=== PATIENT | male | born 1975 | race African-American/Black ===

== ENCOUNTER → 2020-10-21 | Outpatient (CLI) | payer BC ==
[~2020-10-21] MED LIST: LIDOCAINE VISC 2% SOLN 15 ML UDC ONE
[2020-10-21 16:45] LABS: BASOPHILS % 0.4 % (0.0-1.0); EOSINOPHILS # (AUTO) 0.2 (0.0-0.4); EOSINOPHILS % 2.6 % (0.0-6.0); LYMPHOCYTES # (AUTO) 2.2 (1.0-3.2); LYMPHOCYTES % 30.8 % (18.0-39.1); MEAN CORPUSCULAR HEMOGLOBIN 24.3 pg (28-32); MEAN CORPUSCULAR HGB CONC 30.3 g/dL (31-35); MEAN CORPUSCULAR VOLUME 80.1 fL (81-99); MONOCYTES # (AUTO) 0.6 (0.2-0.8); MONOCYTES % 7.9 % (4.4-11.3); NEUTROPHILS % 57.9 % (38.7-80.0); PLATELET COUNT 463 x10e3/uL (140-360); RED BLOOD COUNT 4.12 x10e6/uL (4.3-5.7); RED CELL DISTRIBUTION WIDTH 15.2 % (11.7-14.4)
[2020-10-21 17:04] LABS: ALBUMIN 3.5 g/dL (3.5-5.0); ALBUMIN/GLOBULIN RATIO 0.6 (0.8-2.0); ANION GAP 14.3 mmol/L (8-16); CALCIUM 9.6 mg/dL (8.4-10.2); CREATININE, SERUM 1.5 mg/dL (0.72-1.25); POTASSIUM 4.3 mmol/L (3.5-5.1)
== END | disposition home or self-care (01) ==
LOC: WCC 14:11
PROVIDERS: ATTEND Podiatrist Foot & Ankle Surgery
DX: E11.621 Type 2 diabetes mellitus with foot ulcer (principal); L97.516 Non-pressure chronic ulcer of other part of right foot with bone involvement without evidence of necrosis; M86.171 Other acute osteomyelitis, right ankle and foot; E11.628 Type 2 diabetes mellitus with other skin complications; G99.0 Autonomic neuropathy in diseases classified elsewhere; I10 Essential (primary) hypertension
CPT/HCPCS: 36415; 80053; 82948; 83036; 84134; 85025; 85651

== ENCOUNTER → 2020-10-24 | Outpatient (CLI) | payer BC ==
[~2020-10-24] MED LIST changes: +TRYPSIN/BALSAM PERU/CASTOR OIL ONE
== END ==
LOC: WCC 10:17
PROVIDERS: ATTEND Internal Medicine Infectious Disease
DX: E11.621 Type 2 diabetes mellitus with foot ulcer (principal); E11.628 Type 2 diabetes mellitus with other skin complications; M86.171 Other acute osteomyelitis, right ankle and foot; L97.516 Non-pressure chronic ulcer of other part of right foot with bone involvement without evidence of necrosis; G99.0 Autonomic neuropathy in diseases classified elsewhere; I10 Essential (primary) hypertension; Z01.810 Encounter for preprocedural cardiovascular examination

== ENCOUNTER → 2020-10-28 | Outpatient (CLI) | payer BC | LOC: WCC 13:56 | PROVIDERS: ATTEND Podiatrist Foot & Ankle Surgery | DX: E11.621 Type 2 diabetes mellitus with foot ulcer (principal); E11.628 Type 2 diabetes mellitus with other skin complications; M86.171 Other acute osteomyelitis, right ankle and foot; L97.516 Non-pressure chronic ulcer of other part of right foot with bone involvement without evidence of necrosis; G99.0 Autonomic neuropathy in diseases classified elsewhere; I10 Essential (primary) hypertension; Z01.810 Encounter for preprocedural cardiovascular examination ==

== ENCOUNTER → 2020-11-03 | Outpatient (CLI) | payer BC | LOC: DX 09:18 | PROVIDERS: ATTEND Internal Medicine Infectious Disease | DX: Z01.810 Encounter for preprocedural cardiovascular examination (principal); E11.621 Type 2 diabetes mellitus with foot ulcer; L97.516 Non-pressure chronic ulcer of other part of right foot with bone involvement without evidence of necrosis; M86.171 Other acute osteomyelitis, right ankle and foot | CPT/HCPCS: 36569; 71045 ==

== ENCOUNTER → 2020-11-04 | Outpatient (CLI) | payer BC | LOC: RAD 14:29 | PROVIDERS: ATTEND Internal Medicine Infectious Disease | DX: Z01.810 Encounter for preprocedural cardiovascular examination (principal); E11.621 Type 2 diabetes mellitus with foot ulcer; L97.516 Non-pressure chronic ulcer of other part of right foot with bone involvement without evidence of necrosis; M86.171 Other acute osteomyelitis, right ankle and foot | CPT/HCPCS: 71046; 93005; 93306 ==

== ENCOUNTER → 2020-11-04 | Outpatient (CLI) | payer BC | LOC: WCC 13:32 | PROVIDERS: ATTEND Podiatrist Foot & Ankle Surgery | DX: E11.621 Type 2 diabetes mellitus with foot ulcer (principal); E11.628 Type 2 diabetes mellitus with other skin complications; M86.171 Other acute osteomyelitis, right ankle and foot; L97.516 Non-pressure chronic ulcer of other part of right foot with bone involvement without evidence of necrosis; G99.0 Autonomic neuropathy in diseases classified elsewhere; I10 Essential (primary) hypertension; Z01.810 Encounter for preprocedural cardiovascular examination ==

== ENCOUNTER → 2020-11-07 | Outpatient (CLI) | payer BC | LOC: WCC 08:13 | PROVIDERS: ATTEND Internal Medicine Infectious Disease | DX: E11.621 Type 2 diabetes mellitus with foot ulcer (principal); E11.628 Type 2 diabetes mellitus with other skin complications; M86.171 Other acute osteomyelitis, right ankle and foot; L97.516 Non-pressure chronic ulcer of other part of right foot with bone involvement without evidence of necrosis; I10 Essential (primary) hypertension; G99.0 Autonomic neuropathy in diseases classified elsewhere; Z01.810 Encounter for preprocedural cardiovascular examination | CPT/HCPCS: 36415; 82948; 93005 ==

== ENCOUNTER → 2020-11-11 | Outpatient (CLI) | payer BC | LOC: WCC 15:08 | PROVIDERS: ATTEND Internal Medicine Infectious Disease | DX: E11.621 Type 2 diabetes mellitus with foot ulcer (principal); E11.628 Type 2 diabetes mellitus with other skin complications; M86.171 Other acute osteomyelitis, right ankle and foot; L97.516 Non-pressure chronic ulcer of other part of right foot with bone involvement without evidence of necrosis; I10 Essential (primary) hypertension; G99.0 Autonomic neuropathy in diseases classified elsewhere; Z01.810 Encounter for preprocedural cardiovascular examination | CPT/HCPCS: 36415; 82948 ==

== ENCOUNTER 2020-11-15 13:10 | Emergency (ER) | payer BC ==
[~2020-11-15] VITALS: Ht 188 cm; Wt 140.6 kg
== END 2020-11-15 14:31 | disposition home or self-care (01) ==
LOC: ER 13:16
DX: Z48.01 Encounter for change or removal of surgical wound dressing (principal); I10 Essential (primary) hypertension; E11.9 Type 2 diabetes mellitus without complications; E78.5 Hyperlipidemia, unspecified; K21.9 Gastro-esophageal reflux disease without esophagitis
CPT/HCPCS: 99283

== ENCOUNTER → 2020-11-17 | Outpatient (CLI) | payer BC | LOC: WCC 14:23 | PROVIDERS: ATTEND Internal Medicine Infectious Disease | DX: E11.621 Type 2 diabetes mellitus with foot ulcer (principal); E11.628 Type 2 diabetes mellitus with other skin complications; M86.171 Other acute osteomyelitis, right ankle and foot; L97.516 Non-pressure chronic ulcer of other part of right foot with bone involvement without evidence of necrosis; I10 Essential (primary) hypertension; G99.0 Autonomic neuropathy in diseases classified elsewhere; Z01.810 Encounter for preprocedural cardiovascular examination ==

== ENCOUNTER → 2020-11-18 | Outpatient (CLI) | payer BC ==
[~2020-11-18] MED LIST changes: -LIDOCAINE VISC 2% SOLN 15 ML UDC ONE
== END ==
LOC: WCC 13:47
PROVIDERS: ATTEND Podiatrist Foot & Ankle Surgery
DX: E11.621 Type 2 diabetes mellitus with foot ulcer (principal); E11.628 Type 2 diabetes mellitus with other skin complications; M86.171 Other acute osteomyelitis, right ankle and foot; L97.516 Non-pressure chronic ulcer of other part of right foot with bone involvement without evidence of necrosis; I10 Essential (primary) hypertension; G99.0 Autonomic neuropathy in diseases classified elsewhere; Z01.810 Encounter for preprocedural cardiovascular examination

== ENCOUNTER → 2020-11-24 | Outpatient (CLI) | payer BC | LOC: WCC 12:36 | PROVIDERS: ATTEND Internal Medicine Infectious Disease | DX: E11.621 Type 2 diabetes mellitus with foot ulcer (principal); E11.628 Type 2 diabetes mellitus with other skin complications; L97.516 Non-pressure chronic ulcer of other part of right foot with bone involvement without evidence of necrosis; M86.671 Other chronic osteomyelitis, right ankle and foot; G99.0 Autonomic neuropathy in diseases classified elsewhere; I10 Essential (primary) hypertension; Z01.810 Encounter for preprocedural cardiovascular examination ==

== ENCOUNTER → 2020-12-01 | Outpatient (CLI) | payer BC ==
[~2020-12-01] MED LIST changes: +ALLOPURINOL300 MG PO; +AMLODIPINE-BEN1 EAC5 PO; +ATORVASTATIN CA20 MG PO; +CEFTRIAXONE1 GM IV; +FLOMAX0.4 MG PO; +HUMALOG SQ; +HYDROCHLOROTH12.5 MG PO; +JANUVIA100 MG PO; +LANTUS SQ; +METFORMIN HCL500 MG PO; +NEURONTIN300 MG PO; -TRYPSIN/BALSAM PERU/CASTOR OIL ONE
== END ==
LOC: WCC 12:15
PROVIDERS: ATTEND Internal Medicine Infectious Disease
DX: E11.621 Type 2 diabetes mellitus with foot ulcer (principal); E11.628 Type 2 diabetes mellitus with other skin complications; L97.516 Non-pressure chronic ulcer of other part of right foot with bone involvement without evidence of necrosis; M86.671 Other chronic osteomyelitis, right ankle and foot; G99.0 Autonomic neuropathy in diseases classified elsewhere; I10 Essential (primary) hypertension; Z01.810 Encounter for preprocedural cardiovascular examination

== ENCOUNTER → 2020-12-02 | Outpatient (CLI) | payer BC | LOC: WCC 13:16 | PROVIDERS: ATTEND Internal Medicine Infectious Disease | DX: E11.621 Type 2 diabetes mellitus with foot ulcer (principal); E11.628 Type 2 diabetes mellitus with other skin complications; M86.671 Other chronic osteomyelitis, right ankle and foot; L97.516 Non-pressure chronic ulcer of other part of right foot with bone involvement without evidence of necrosis; G99.0 Autonomic neuropathy in diseases classified elsewhere; I10 Essential (primary) hypertension; Z01.810 Encounter for preprocedural cardiovascular examination ==

== ENCOUNTER → 2020-12-08 | Outpatient (CLI) | payer BC ==
[~2020-12-08] MED LIST changes: +BUPIVACAINE 0.25% 30ML SDV ONE; +NEOSTIGMINE 1 MG/ML 10ML VIAL ONE; +Vancomycin IV 0 MG ONE
== END ==
LOC: WCC 13:33
PROVIDERS: ATTEND Internal Medicine Infectious Disease
DX: E11.621 Type 2 diabetes mellitus with foot ulcer (principal); E11.628 Type 2 diabetes mellitus with other skin complications; L97.516 Non-pressure chronic ulcer of other part of right foot with bone involvement without evidence of necrosis; M86.671 Other chronic osteomyelitis, right ankle and foot; G99.0 Autonomic neuropathy in diseases classified elsewhere; I10 Essential (primary) hypertension; Z01.810 Encounter for preprocedural cardiovascular examination
CPT/HCPCS: J2710; J3370

== ENCOUNTER → 2020-12-09 | Day surgery (SDC) | payer BC ==
[2020-12-08 12:28] LABS: ANION GAP 14.5 mmol/L (8-16); CALCIUM 9.8 mg/dL (8.4-10.2); CREATININE, SERUM 1.65 mg/dL (0.72-1.25); POTASSIUM 5.5 mmol/L (3.5-5.1)
[~2020-12-09] MED LIST changes: -BUPIVACAINE 0.25% 30ML SDV ONE; +DEXAMETHASONE SOD PHOS INJ 4 MG/ML SDV ONE; +EPHEDRINE SULFATE INJ 50 MG/ML VIAL ONE; +LIDOCAINE HCL 2% LOCAL INJ 5 ML SDV VIAL INJ ONE; -NEOSTIGMINE 1 MG/ML 10ML VIAL ONE; +ONDANSETRON HCL INJ 2MG/ML 2ML 2 MG/ML VIAL ONE; +POVIDONE IODINE 0.05% 0.05 % ML PO ONE; +PROPOFOL IV EMULSION 10 MG/ML 20 ML VIAL ONE; +SEVOFLURANE INHAL SOLN 250 ML PEN BTL ONE; -Vancomycin IV 0 MG ONE
[2020-12-09 10:35] VITALS: BP 148/93
== END | disposition home or self-care (01) ==
LOC: OR 06:54
PROVIDERS: ATTEND Podiatrist Foot & Ankle Surgery
DX: M86.9 Osteomyelitis, unspecified (principal); E11.621 Type 2 diabetes mellitus with foot ulcer; E11.40 Type 2 diabetes mellitus with diabetic neuropathy, unspecified; E11.51 Type 2 diabetes mellitus with diabetic peripheral angiopathy without gangrene; L97.416 Non-pressure chronic ulcer of right heel and midfoot with bone involvement without evidence of necrosis; M10.9 Gout, unspecified; I10 Essential (primary) hypertension; Z01.812 Encounter for preprocedural laboratory examination; Z20.822 Contact with and (suspected) exposure to COVID-19; Z79.4 Long term (current) use of insulin
CPT/HCPCS: 15004; 15275; 36415 ×2; 80048; 82948; 84132; 87071; 87075; 87186; 87205; J1100; J2001; J2405; J2704; Q4100; U0002

== ENCOUNTER → 2020-12-16 | Outpatient (CLI) | payer BC ==
[~2020-12-16] MED LIST changes: -DEXAMETHASONE SOD PHOS INJ 4 MG/ML SDV ONE; -EPHEDRINE SULFATE INJ 50 MG/ML VIAL ONE; -LIDOCAINE HCL 2% LOCAL INJ 5 ML SDV VIAL INJ ONE; -ONDANSETRON HCL INJ 2MG/ML 2ML 2 MG/ML VIAL ONE; -POVIDONE IODINE 0.05% 0.05 % ML PO ONE; -PROPOFOL IV EMULSION 10 MG/ML 20 ML VIAL ONE; -SEVOFLURANE INHAL SOLN 250 ML PEN BTL ONE
== END ==
LOC: WCC 15:58
PROVIDERS: ATTEND Internal Medicine Infectious Disease
DX: E11.621 Type 2 diabetes mellitus with foot ulcer (principal); E11.628 Type 2 diabetes mellitus with other skin complications; M86.671 Other chronic osteomyelitis, right ankle and foot; L97.516 Non-pressure chronic ulcer of other part of right foot with bone involvement without evidence of necrosis; G99.0 Autonomic neuropathy in diseases classified elsewhere; I10 Essential (primary) hypertension; Z01.810 Encounter for preprocedural cardiovascular examination

== ENCOUNTER 2020-12-20 09:33 | Inpatient (IN) | payer BC ==
[~2020-12-20] VITALS: Ht 188 cm; Wt 141.5 kg
[2020-12-20] MEDS ORDERED: SODIUM CHLORIDE 0.9% 1000ML 1,000 ML IV STA (10:00)
[2020-12-20 10:26] LABS: BASOPHILS % 0.3 % (0.0-1.0); EOSINOPHILS % 0.3 % (0.0-6.0); HEMATOCRIT 28.7 % (38.2-49.6); HEMOGLOBIN 8.6 g/dL (14.0-18.0); LYMPHOCYTES # (AUTO) 1.3 (1.0-3.2); LYMPHOCYTES % 9.5 % (18.0-39.1); MEAN CORPUSCULAR HEMOGLOBIN 24.3 pg (28-32); MEAN CORPUSCULAR VOLUME 81.1 fL (81-99); MONOCYTES # (AUTO) 0.7 (0.2-0.8); MONOCYTES % 4.9 % (4.4-11.3); NEUTROPHILS # (AUTO) 11.8 (2.1-6.9); NEUTROPHILS % 84.4 % (38.7-80.0); PLATELET COUNT 495 x10e3/uL (140-360); RED BLOOD COUNT 3.54 x10e6/uL (4.3-5.7); RED CELL DISTRIBUTION WIDTH 15.9 % (11.7-14.4)
[2020-12-20 10:31] LABS: INR 1.07; PARTIAL THROMBOPLASTIN TIME 32.1 seconds (23.8-35.5); PROTHROMBIN TIME 14.1 seconds (11.9-14.5)
[2020-12-20 10:43] LABS: ALBUMIN 3.1 g/dL (3.5-5.0); ALBUMIN/GLOBULIN RATIO 0.5 (0.8-2.0); ANION GAP 22.1 mmol/L (8-16); CALCIUM 9.5 mg/dL (8.4-10.2); CREATININE, SERUM 3.05 mg/dL (0.72-1.25); POTASSIUM 5.1 mmol/L (3.5-5.1)
[2020-12-20] MEDS ORDERED: MEROPENEM 1 GM in SODIUM CHLORIDE 0.9% 100 ML 100 ML IV STA (10:48)
[2020-12-20 10:56] LABS: CREATINE KINASE 74 IU/L (30-200); MAGNESIUM 1.6 MG/DL (1.3-2.1)
[2020-12-20] MEDS ORDERED: MEROPENEM 1 GM in SODIUM CHLORIDE 0.9% 100 ML IV STA (11:00)
[2020-12-20] MEDS ORDERED: SODIUM CHLORIDE 0.9% 1000ML 1,000 ML IV ONE (11:00)
[2020-12-20] MEDS ORDERED: LINEZOLID 600 MG/D5W 300ML 300 ML IV ONE (11:30)
[2020-12-20 11:37] LABS: CLARITY,URINE SL CLOUDY (CLEAR); COLOR,URINE YELLOW (YELLOW); KETONES,URINE TRACE (NEGATIVE); LEUKOCYTE ESTERASE ,URINE LARGE (NEGATIVE); NITRITE,URINE NEGATIVE (NEGATIVE); PROTEIN,URINE DIPSTICK >=300 (NEGATIVE); URINE UROBILINOGEN 0.2 mg/dL (0.2 - 1)
[2020-12-20 11:47] LABS: WBC,URINE (MAN) 21-50 /HPF (0-5)
[2020-12-20 11:48] LABS: BACTERIA,URINE RARE /HPF; EPITHELIAL CELLS,URINE FEW /LPF; RBC,URINE 21-50 /HPF (0-5)
[2020-12-20] MEDS ORDERED: ONDANSETRON HCL INJ 2MG/ML 2ML 2 MG/ML VIAL IV PRN (14:15)
[2020-12-20] MEDS: FAMOTIDINE 20 MG/2 ML VIAL IV SCH (14:21)
[2020-12-20] MEDS: SODIUM CHLORIDE 0.9% 1000ML 1,000 ML IV SCH (14:21)
[2020-12-20 15:58] VITALS: BP 157/93
[2020-12-20 20:00] VITALS: BP 143/81
[2020-12-20 22:45] LABS: CREATINE KINASE MB 2.1 ng/mL (0-5.0)
[2020-12-20 23:26] VITALS: BP 143/81
[2020-12-21] VITALS (8 sets, daily range): BP systolic 115–166; BP diastolic 71–97
[2020-12-21] MEDS: SODIUM CHLORIDE 0.9% 1000ML 1,000 ML IV SCH ×3 (00:41→21:42)
[2020-12-21 01:17] LABS: CREATINE KINASE MB 2.1 ng/mL (0-5.0)
[2020-12-21] MEDS: FAMOTIDINE 20 MG/2 ML VIAL IV SCH (02:03)
[2020-12-21 08:36] LABS: HEMATOCRIT 28.5 % (38.2-49.6); HEMOGLOBIN 8.3 g/dL (14.0-18.0); RED BLOOD COUNT 3.51 x10e6/uL (4.3-5.7)
[2020-12-21 08:37] LABS: BASOPHILS % 0.6 % (0.0-1.0); EOSINOPHILS # (AUTO) 0.1 (0.0-0.4); EOSINOPHILS % 1.3 % (0.0-6.0); LYMPHOCYTES # (AUTO) 0.9 (1.0-3.2); LYMPHOCYTES % 17.5 % (18.0-39.1); MEAN CORPUSCULAR HEMOGLOBIN 23.6 pg (28-32); MEAN CORPUSCULAR HGB CONC 29.1 g/dL (31-35); MEAN CORPUSCULAR VOLUME 81.2 fL (81-99); MONOCYTES # (AUTO) 0.9 (0.2-0.8); MONOCYTES % 16.7 % (4.4-11.3); NEUTROPHILS # (AUTO) 3.4 (2.1-6.9); NEUTROPHILS % 63.7 % (38.7-80.0); PLATELET COUNT 455 x10e3/uL (140-360); RED CELL DISTRIBUTION WIDTH 15.8 % (11.7-14.4)
[2020-12-21 09:03] LABS: ALBUMIN 2.8 g/dL (3.5-5.0); ALBUMIN/GLOBULIN RATIO 0.5 (0.8-2.0); ANION GAP 14.2 mmol/L (8-16); CALCIUM 9.2 mg/dL (8.4-10.2); CHOL/HDL RATIO 4.2 (3.9-4.7); CREATININE, SERUM 1.67 mg/dL (0.72-1.25); POTASSIUM 5.2 mmol/L (3.5-5.1)
[2020-12-21] MEDS ORDERED: DEXTROSE 50% SYRINGE 50 ML IV PRN (09:15)
[2020-12-21] MEDS ORDERED: HYDRALAZINE HCL 25 MG TAB PO PRN (09:15)
[2020-12-21] MEDS ORDERED: NIFEDIPINE CR 30 MG TAB PO ONE (10:00)
[2020-12-21] MEDS: INSULIN LISPRO 100 UNIT/1 ML 3ML VIAL SQ SCH ×5 (10:24→21:43)
[2020-12-21] MEDS ORDERED: SOD POLYSTYRENE SULFONATE SUSP 15 GM/60 ML BTL PO ONE ×2 (11:30→14:00)
[2020-12-21] MEDS: GABAPENTIN 300 MG CAP PO SCH (17:00)
[2020-12-21] MEDS: TAMSULOSIN HCL 0.4 MG CAP PO SCH (17:00)
[2020-12-21] MEDS: ATORVASTATIN 20 MG TAB PO SCH (21:40)
[2020-12-21] MEDS: INSULIN GLARGINE 100 UNITS/ML VIAL SQ SCH (21:43)
[2020-12-22] VITALS (8 sets, daily range): BP systolic 120–154; BP diastolic 67–95
[2020-12-22] MEDS: SODIUM CHLORIDE 0.9% 1000ML 1,000 ML IV SCH ×3 (05:44→20:54)
[2020-12-22 05:47] LABS: BASOPHILS % 0.5 % (0.0-1.0); EOSINOPHILS # (AUTO) 0.1 (0.0-0.4); EOSINOPHILS % 1.7 % (0.0-6.0); HEMATOCRIT 28.6 % (38.2-49.6); HEMOGLOBIN 8.4 g/dL (14.0-18.0); LYMPHOCYTES % 24.2 % (18.0-39.1); MEAN CORPUSCULAR HEMOGLOBIN 23.7 pg (28-32); MEAN CORPUSCULAR HGB CONC 29.4 g/dL (31-35); MEAN CORPUSCULAR VOLUME 80.8 fL (81-99); MONOCYTES # (AUTO) 0.8 (0.2-0.8); MONOCYTES % 20.3 % (4.4-11.3); NEUTROPHILS # (AUTO) 2.2 (2.1-6.9); NEUTROPHILS % 53.1 % (38.7-80.0); PLATELET COUNT 454 x10e3/uL (140-360); RED BLOOD COUNT 3.54 x10e6/uL (4.3-5.7); RED CELL DISTRIBUTION WIDTH 15.6 % (11.7-14.4)
[2020-12-22] MEDS ORDERED: NIFEDIPINE CR 30 MG TAB PO SCH (06:00)
[2020-12-22 06:02] LABS: ALBUMIN 2.8 g/dL (3.5-5.0); ALBUMIN/GLOBULIN RATIO 0.5 (0.8-2.0); ANION GAP 12.7 mmol/L (8-16); CALCIUM 9.1 mg/dL (8.4-10.2); CREATININE, SERUM 1.3 mg/dL (0.72-1.25); PHOSPHORUS 3.6 MG/DL (2.3-4.7); POTASSIUM 4.7 mmol/L (3.5-5.1)
[2020-12-22 06:22] LABS: FERRITIN 446.64 ng/mL (21.81-274.66)
[2020-12-22 06:46] LABS: CREATININE,URINE RANDOM 79.8 mg/dL (63-166); TOTAL PROTEIN, URINE 149.1 mg/dL (1-14)
[2020-12-22 08:00] LABS: THYROID STIMULATING HORMONE 1.35 uIU/mL (0.350-4.940)
[2020-12-22] MEDS: GABAPENTIN 300 MG CAP PO SCH ×2 (10:28→16:59)
[2020-12-22] MEDS: ALLOPURINOL 300 MG TAB PO SCH (10:29)
[2020-12-22] MEDS: NIFEDIPINE CR 30 MG TAB PO SCH (10:29)
[2020-12-22] MEDS: INSULIN LISPRO 100 UNIT/1 ML 3ML VIAL SQ SCH ×7 (10:30→21:39)
[2020-12-22] MEDS ORDERED: LEVOFLOXACIN 500 MG TAB PO SCH (14:00)
[2020-12-22] MEDS: AMOXICILLIN/CLAVULANATE K 500 MG TAB PO SCH (16:59)
[2020-12-22] MEDS: TAMSULOSIN HCL 0.4 MG CAP PO SCH (16:59)
[2020-12-22] MEDS ORDERED: MELATONIN 3 MG TAB PO PRN (21:15)
[2020-12-22] MEDS: ATORVASTATIN 20 MG TAB PO SCH (21:39)
[2020-12-22] MEDS: INSULIN GLARGINE 100 UNITS/ML VIAL SQ SCH (21:39)
[2020-12-23 01:31] VITALS: BP 113/66
[2020-12-23 05:50] VITALS: BP 120/66
[2020-12-23 08:11] LABS: ANION GAP 14.5 mmol/L (8-16); CALCIUM 9.3 mg/dL (8.4-10.2); CREATININE, SERUM 1.36 mg/dL (0.72-1.25); POTASSIUM 4.5 mmol/L (3.5-5.1)
[2020-12-23 08:32] VITALS: BP 147/78
[2020-12-23 08:35] VITALS: BP 120/66
[2020-12-23] MEDS: ALLOPURINOL 300 MG TAB PO SCH (09:46)
[2020-12-23] MEDS: NIFEDIPINE CR 30 MG TAB PO SCH (09:46)
[2020-12-23] MEDS: GABAPENTIN 300 MG CAP PO SCH (09:46)
[2020-12-23] MEDS: AMOXICILLIN/CLAVULANATE K 500 MG TAB PO SCH (09:46)
[2020-12-23] MEDS: INSULIN LISPRO 100 UNIT/1 ML 3ML VIAL SQ SCH ×2 (09:47)
[2020-12-23 10:28] LABS: BASOPHILS % 0.2 % (0.0-1.0); EOSINOPHILS % 0.2 % (0.0-6.0); HEMATOCRIT 29.2 % (38.2-49.6); HEMOGLOBIN 8.7 g/dL (14.0-18.0); LYMPHOCYTES # (AUTO) 1.1 (1.0-3.2); LYMPHOCYTES % 21.9 % (18.0-39.1); MEAN CORPUSCULAR HEMOGLOBIN 24.1 pg (28-32); MEAN CORPUSCULAR HGB CONC 29.8 g/dL (31-35); MEAN CORPUSCULAR VOLUME 80.9 fL (81-99); MONOCYTES # (AUTO) 0.8 (0.2-0.8); MONOCYTES % 14.6 % (4.4-11.3); NEUTROPHILS # (AUTO) 3.3 (2.1-6.9); NEUTROPHILS % 62.9 % (38.7-80.0); PLATELET COUNT 431 x10e3/uL (140-360); RED BLOOD COUNT 3.61 x10e6/uL (4.3-5.7); RED CELL DISTRIBUTION WIDTH 15.8 % (11.7-14.4)
== END 2020-12-23 11:36 | disposition home or self-care (01) | DRG 871 ==
LOC: ER 09:54 → ERHOLD 14:03 → MED/SURG2 15:20
PROVIDERS: ADMIT Internal Medicine; ATTEND Internal Medicine
DX: A41.9 Sepsis, unspecified organism (principal); N17.0 Acute kidney failure with tubular necrosis; E87.2 Acidosis; L97.518 Non-pressure chronic ulcer of other part of right foot with other specified severity; M86.8X7 Other osteomyelitis, ankle and foot; N39.0 Urinary tract infection, site not specified; R65.20 Severe sepsis without septic shock; E11.621 Type 2 diabetes mellitus with foot ulcer; Z79.899 Other long term (current) drug therapy; I12.9 Hypertensive chronic kidney disease with stage 1 through stage 4 chronic kidney disease, or unspecified chronic kidney disease; N18.30 Chronic kidney disease, stage 3 unspecified; E11.40 Type 2 diabetes mellitus with diabetic neuropathy, unspecified; E11.65 Type 2 diabetes mellitus with hyperglycemia; E11.69 Type 2 diabetes mellitus with other specified complication; M10.9 Gout, unspecified; D63.1 Anemia in chronic kidney disease; E87.5 Hyperkalemia
CPT/HCPCS: 36415; 71045; 76770; 80048; 80053; 80061; 81001; 82550; 82553; 82570; 82607; 82728; 82746; 82948; 83036; 83540; 83605; 83735; 84100; 84156; 84443; 84466; 84484; 85025; 85610; 85730; 87040; 87086; 93005; 96372; 99284; J1815; J2020; J2185; J7030; J7050; U0002

== ENCOUNTER → 2021-01-27 | Outpatient (CLI) | payer BC ==
[~2021-01-27] MED LIST changes: +TRYPSIN/BALSAM PERU/CASTOR OIL ONE
== END ==
LOC: WCC 12:13
PROVIDERS: ATTEND Podiatrist Foot & Ankle Surgery
DX: E11.621 Type 2 diabetes mellitus with foot ulcer (principal); E11.628 Type 2 diabetes mellitus with other skin complications; M86.671 Other chronic osteomyelitis, right ankle and foot; L97.516 Non-pressure chronic ulcer of other part of right foot with bone involvement without evidence of necrosis; I10 Essential (primary) hypertension; G99.0 Autonomic neuropathy in diseases classified elsewhere; Z01.810 Encounter for preprocedural cardiovascular examination; Z01.811 Encounter for preprocedural respiratory examination

== ENCOUNTER → 2021-01-28 | Outpatient (CLI) | payer BC ==
[~2021-01-28] MED LIST changes: -TRYPSIN/BALSAM PERU/CASTOR OIL ONE
== END ==
LOC: RAD 10:12
PROVIDERS: ATTEND Podiatrist Foot & Ankle Surgery
DX: Z01.810 Encounter for preprocedural cardiovascular examination (principal); Z01.811 Encounter for preprocedural respiratory examination
CPT/HCPCS: 71046; 93005

== ENCOUNTER → 2021-02-02 | Outpatient (CLI) | payer BC | LOC: WCC 10:48 | PROVIDERS: ATTEND Internal Medicine Infectious Disease | DX: E11.621 Type 2 diabetes mellitus with foot ulcer (principal); E11.628 Type 2 diabetes mellitus with other skin complications; M86.671 Other chronic osteomyelitis, right ankle and foot; L97.516 Non-pressure chronic ulcer of other part of right foot with bone involvement without evidence of necrosis; I10 Essential (primary) hypertension; G99.0 Autonomic neuropathy in diseases classified elsewhere; Z01.810 Encounter for preprocedural cardiovascular examination; Z01.811 Encounter for preprocedural respiratory examination ==

== ENCOUNTER → 2021-02-03 | Outpatient (CLI) | payer BC | LOC: WCC 14:41 | PROVIDERS: ATTEND Podiatrist Foot & Ankle Surgery | DX: E11.621 Type 2 diabetes mellitus with foot ulcer (principal); E11.628 Type 2 diabetes mellitus with other skin complications; M86.671 Other chronic osteomyelitis, right ankle and foot; L97.516 Non-pressure chronic ulcer of other part of right foot with bone involvement without evidence of necrosis; I10 Essential (primary) hypertension; G99.0 Autonomic neuropathy in diseases classified elsewhere; Z01.810 Encounter for preprocedural cardiovascular examination; Z01.811 Encounter for preprocedural respiratory examination | CPT/HCPCS: 87071; 87075; 87205; 99212; G0277 ==

== ENCOUNTER → 2021-02-04 | Outpatient (CLI) | payer BC | LOC: WCC 10:21 | PROVIDERS: ATTEND Podiatrist Foot & Ankle Surgery | DX: E11.621 Type 2 diabetes mellitus with foot ulcer (principal); E11.628 Type 2 diabetes mellitus with other skin complications; M86.671 Other chronic osteomyelitis, right ankle and foot; L97.516 Non-pressure chronic ulcer of other part of right foot with bone involvement without evidence of necrosis; G99.0 Autonomic neuropathy in diseases classified elsewhere; I10 Essential (primary) hypertension; Z01.810 Encounter for preprocedural cardiovascular examination; Z01.811 Encounter for preprocedural respiratory examination | CPT/HCPCS: 36415; 82947 ==

== ENCOUNTER → 2021-02-05 | Outpatient (CLI) | payer BC | LOC: WCC 11:39 | PROVIDERS: ATTEND Podiatrist Foot & Ankle Surgery | DX: E11.621 Type 2 diabetes mellitus with foot ulcer (principal); E11.628 Type 2 diabetes mellitus with other skin complications; M86.671 Other chronic osteomyelitis, right ankle and foot; L97.516 Non-pressure chronic ulcer of other part of right foot with bone involvement without evidence of necrosis; I10 Essential (primary) hypertension; G99.0 Autonomic neuropathy in diseases classified elsewhere; Z01.810 Encounter for preprocedural cardiovascular examination; Z01.811 Encounter for preprocedural respiratory examination | CPT/HCPCS: 99213; G0277 ==

== ENCOUNTER → 2021-02-09 | Outpatient (CLI) | payer BC ==
[~2021-02-09] MED LIST changes: +MINERAL OIL/PETROLAT/GLYCERI 6OZ BTL ONE; +TRYPSIN/BALSAM PERU/CASTOR OIL ONE
== END ==
LOC: WCC 08:43
PROVIDERS: ATTEND Podiatrist Foot & Ankle Surgery
DX: E11.621 Type 2 diabetes mellitus with foot ulcer (principal); E11.628 Type 2 diabetes mellitus with other skin complications; M86.671 Other chronic osteomyelitis, right ankle and foot; L97.516 Non-pressure chronic ulcer of other part of right foot with bone involvement without evidence of necrosis; I10 Essential (primary) hypertension; G99.0 Autonomic neuropathy in diseases classified elsewhere; Z01.810 Encounter for preprocedural cardiovascular examination; Z01.811 Encounter for preprocedural respiratory examination
CPT/HCPCS: 36415; 82948; 99213; G0277

== ENCOUNTER → 2021-02-10 | Outpatient (CLI) | payer BC ==
[~2021-02-10] MED LIST changes: -MINERAL OIL/PETROLAT/GLYCERI 6OZ BTL ONE; -TRYPSIN/BALSAM PERU/CASTOR OIL ONE
== END ==
LOC: WCC 11:29
PROVIDERS: ATTEND Podiatrist Foot & Ankle Surgery
DX: E11.621 Type 2 diabetes mellitus with foot ulcer (principal); E11.628 Type 2 diabetes mellitus with other skin complications; M86.671 Other chronic osteomyelitis, right ankle and foot; L97.516 Non-pressure chronic ulcer of other part of right foot with bone involvement without evidence of necrosis; I10 Essential (primary) hypertension; G99.0 Autonomic neuropathy in diseases classified elsewhere; B96.89 Other specified bacterial agents as the cause of diseases classified elsewhere; Z01.810 Encounter for preprocedural cardiovascular examination; Z01.811 Encounter for preprocedural respiratory examination
CPT/HCPCS: 11042; G0277

== ENCOUNTER → 2021-02-11 | Outpatient (CLI) | payer BC | LOC: WCC 11:53 | PROVIDERS: ATTEND Podiatrist Foot & Ankle Surgery | DX: E11.621 Type 2 diabetes mellitus with foot ulcer (principal); E11.628 Type 2 diabetes mellitus with other skin complications; M86.671 Other chronic osteomyelitis, right ankle and foot; L97.516 Non-pressure chronic ulcer of other part of right foot with bone involvement without evidence of necrosis; I10 Essential (primary) hypertension; G99.0 Autonomic neuropathy in diseases classified elsewhere; B96.89 Other specified bacterial agents as the cause of diseases classified elsewhere; Z01.810 Encounter for preprocedural cardiovascular examination; Z01.811 Encounter for preprocedural respiratory examination | CPT/HCPCS: 99212; G0277 ==

== ENCOUNTER → 2021-02-12 | Outpatient (CLI) | payer BC | LOC: WCC 11:52 | PROVIDERS: ATTEND Podiatrist Foot & Ankle Surgery | DX: E11.621 Type 2 diabetes mellitus with foot ulcer (principal); E11.628 Type 2 diabetes mellitus with other skin complications; M86.671 Other chronic osteomyelitis, right ankle and foot; L97.516 Non-pressure chronic ulcer of other part of right foot with bone involvement without evidence of necrosis; I10 Essential (primary) hypertension; G99.0 Autonomic neuropathy in diseases classified elsewhere; B96.89 Other specified bacterial agents as the cause of diseases classified elsewhere; Z01.810 Encounter for preprocedural cardiovascular examination; Z01.811 Encounter for preprocedural respiratory examination | CPT/HCPCS: 99211; G0277 ==

== ENCOUNTER → 2021-02-13 | Outpatient (CLI) | payer BC | LOC: WCC 12:05 | PROVIDERS: ATTEND Podiatrist Foot & Ankle Surgery | DX: E11.621 Type 2 diabetes mellitus with foot ulcer (principal); E11.628 Type 2 diabetes mellitus with other skin complications; M86.671 Other chronic osteomyelitis, right ankle and foot; L97.516 Non-pressure chronic ulcer of other part of right foot with bone involvement without evidence of necrosis; I10 Essential (primary) hypertension; G99.0 Autonomic neuropathy in diseases classified elsewhere; B96.89 Other specified bacterial agents as the cause of diseases classified elsewhere; Z01.810 Encounter for preprocedural cardiovascular examination; Z01.811 Encounter for preprocedural respiratory examination | CPT/HCPCS: 99213; G0277 ==

== ENCOUNTER → 2021-02-16 | Outpatient (CLI) | payer BC | LOC: WCC 09:13 | PROVIDERS: ATTEND Podiatrist Foot & Ankle Surgery | DX: E11.621 Type 2 diabetes mellitus with foot ulcer (principal); E11.628 Type 2 diabetes mellitus with other skin complications; M86.671 Other chronic osteomyelitis, right ankle and foot; L97.516 Non-pressure chronic ulcer of other part of right foot with bone involvement without evidence of necrosis; R60.0 Localized edema; G99.0 Autonomic neuropathy in diseases classified elsewhere; I10 Essential (primary) hypertension; B96.89 Other specified bacterial agents as the cause of diseases classified elsewhere; Z01.810 Encounter for preprocedural cardiovascular examination; Z01.811 Encounter for preprocedural respiratory examination ==

== ENCOUNTER → 2021-02-17 | Outpatient (CLI) | payer BC | LOC: WCC 09:31 | PROVIDERS: ATTEND Podiatrist Foot & Ankle Surgery | DX: E11.621 Type 2 diabetes mellitus with foot ulcer (principal); E11.628 Type 2 diabetes mellitus with other skin complications; M86.671 Other chronic osteomyelitis, right ankle and foot; L97.516 Non-pressure chronic ulcer of other part of right foot with bone involvement without evidence of necrosis; R60.0 Localized edema; I10 Essential (primary) hypertension; G99.0 Autonomic neuropathy in diseases classified elsewhere; B96.89 Other specified bacterial agents as the cause of diseases classified elsewhere; Z01.810 Encounter for preprocedural cardiovascular examination; Z01.811 Encounter for preprocedural respiratory examination | CPT/HCPCS: 11042; 29581; 99213; G0277 ==

== ENCOUNTER → 2021-02-18 | Outpatient (CLI) | payer BC | LOC: WCC 08:55 | PROVIDERS: ATTEND Podiatrist Foot & Ankle Surgery | DX: E11.621 Type 2 diabetes mellitus with foot ulcer (principal); E11.628 Type 2 diabetes mellitus with other skin complications; M86.671 Other chronic osteomyelitis, right ankle and foot; L97.516 Non-pressure chronic ulcer of other part of right foot with bone involvement without evidence of necrosis; R60.0 Localized edema; I10 Essential (primary) hypertension; G99.0 Autonomic neuropathy in diseases classified elsewhere; B96.89 Other specified bacterial agents as the cause of diseases classified elsewhere; Z01.810 Encounter for preprocedural cardiovascular examination; Z01.811 Encounter for preprocedural respiratory examination ==

== ENCOUNTER → 2021-02-18 | Outpatient (CLI) | payer BC | LOC: WCC 10:51 | PROVIDERS: ATTEND Podiatrist Foot & Ankle Surgery | DX: E11.621 Type 2 diabetes mellitus with foot ulcer (principal); E11.628 Type 2 diabetes mellitus with other skin complications; M86.671 Other chronic osteomyelitis, right ankle and foot; L97.516 Non-pressure chronic ulcer of other part of right foot with bone involvement without evidence of necrosis; R60.0 Localized edema; I10 Essential (primary) hypertension; G99.0 Autonomic neuropathy in diseases classified elsewhere; B96.89 Other specified bacterial agents as the cause of diseases classified elsewhere; Z01.810 Encounter for preprocedural cardiovascular examination; Z01.811 Encounter for preprocedural respiratory examination ==

== ENCOUNTER → 2021-02-20 | Outpatient (CLI) | payer BC | LOC: WCC 11:51 | PROVIDERS: ATTEND Podiatrist Foot & Ankle Surgery | DX: E11.621 Type 2 diabetes mellitus with foot ulcer (principal); E11.628 Type 2 diabetes mellitus with other skin complications; M86.671 Other chronic osteomyelitis, right ankle and foot; L97.516 Non-pressure chronic ulcer of other part of right foot with bone involvement without evidence of necrosis; R60.0 Localized edema; I10 Essential (primary) hypertension; G99.0 Autonomic neuropathy in diseases classified elsewhere; Z01.810 Encounter for preprocedural cardiovascular examination; Z01.811 Encounter for preprocedural respiratory examination | CPT/HCPCS: 29581; 99213; G0277 ==

== ENCOUNTER → 2021-02-23 | Outpatient (CLI) | payer BC | LOC: WCC 08:35 | PROVIDERS: ATTEND Podiatrist Foot & Ankle Surgery | DX: E11.621 Type 2 diabetes mellitus with foot ulcer (principal); E11.628 Type 2 diabetes mellitus with other skin complications; M86.671 Other chronic osteomyelitis, right ankle and foot; L97.516 Non-pressure chronic ulcer of other part of right foot with bone involvement without evidence of necrosis; R60.0 Localized edema; I10 Essential (primary) hypertension; G99.0 Autonomic neuropathy in diseases classified elsewhere; Z01.810 Encounter for preprocedural cardiovascular examination; Z01.811 Encounter for preprocedural respiratory examination ==

== ENCOUNTER → 2021-02-24 | Outpatient (CLI) | payer BC | LOC: WCC 11:15 | PROVIDERS: ATTEND Podiatrist Foot & Ankle Surgery | DX: E11.621 Type 2 diabetes mellitus with foot ulcer (principal); E11.628 Type 2 diabetes mellitus with other skin complications; M86.671 Other chronic osteomyelitis, right ankle and foot; L97.516 Non-pressure chronic ulcer of other part of right foot with bone involvement without evidence of necrosis; R60.0 Localized edema; I10 Essential (primary) hypertension; G99.0 Autonomic neuropathy in diseases classified elsewhere; Z01.810 Encounter for preprocedural cardiovascular examination; Z01.811 Encounter for preprocedural respiratory examination | CPT/HCPCS: 11042; 29581; 99213; G0277 ==

== ENCOUNTER → 2021-02-25 | Outpatient (CLI) | payer BC | LOC: WCC 10:47 | PROVIDERS: ATTEND Podiatrist Foot & Ankle Surgery | DX: E11.621 Type 2 diabetes mellitus with foot ulcer (principal); E11.628 Type 2 diabetes mellitus with other skin complications; M86.671 Other chronic osteomyelitis, right ankle and foot; L97.516 Non-pressure chronic ulcer of other part of right foot with bone involvement without evidence of necrosis; R60.0 Localized edema; G99.0 Autonomic neuropathy in diseases classified elsewhere; I10 Essential (primary) hypertension; Z01.810 Encounter for preprocedural cardiovascular examination; Z01.811 Encounter for preprocedural respiratory examination ==

== ENCOUNTER → 2021-02-26 | Outpatient (CLI) | payer BC | LOC: WCC 10:58 | PROVIDERS: ATTEND Podiatrist Foot & Ankle Surgery | DX: E11.621 Type 2 diabetes mellitus with foot ulcer (principal); E11.628 Type 2 diabetes mellitus with other skin complications; M86.671 Other chronic osteomyelitis, right ankle and foot; L97.516 Non-pressure chronic ulcer of other part of right foot with bone involvement without evidence of necrosis; R60.0 Localized edema; I10 Essential (primary) hypertension; G99.0 Autonomic neuropathy in diseases classified elsewhere; Z01.810 Encounter for preprocedural cardiovascular examination; Z01.811 Encounter for preprocedural respiratory examination | CPT/HCPCS: 29581; 99213; G0277 ==

== ENCOUNTER → 2021-03-02 | Outpatient (CLI) | payer BC | LOC: WCC 10:38 | PROVIDERS: ATTEND Podiatrist Foot & Ankle Surgery | DX: E11.621 Type 2 diabetes mellitus with foot ulcer (principal); E11.628 Type 2 diabetes mellitus with other skin complications; M86.671 Other chronic osteomyelitis, right ankle and foot; L97.516 Non-pressure chronic ulcer of other part of right foot with bone involvement without evidence of necrosis; R60.0 Localized edema; I10 Essential (primary) hypertension; G99.0 Autonomic neuropathy in diseases classified elsewhere; Z01.810 Encounter for preprocedural cardiovascular examination; Z01.811 Encounter for preprocedural respiratory examination ==

== ENCOUNTER → 2021-03-03 | Outpatient (CLI) | payer BC | LOC: WCC 08:50 | PROVIDERS: ATTEND Podiatrist Foot & Ankle Surgery | DX: E11.621 Type 2 diabetes mellitus with foot ulcer (principal); E11.628 Type 2 diabetes mellitus with other skin complications; M86.671 Other chronic osteomyelitis, right ankle and foot; L97.516 Non-pressure chronic ulcer of other part of right foot with bone involvement without evidence of necrosis; R60.0 Localized edema; I10 Essential (primary) hypertension; G99.0 Autonomic neuropathy in diseases classified elsewhere; Z01.810 Encounter for preprocedural cardiovascular examination; Z01.811 Encounter for preprocedural respiratory examination | CPT/HCPCS: 11042; 29581; G0277 ==

== ENCOUNTER → 2021-03-04 | Outpatient (CLI) | payer BC | LOC: WCC 10:05 | PROVIDERS: ATTEND Podiatrist Foot & Ankle Surgery | DX: E11.621 Type 2 diabetes mellitus with foot ulcer (principal); E11.628 Type 2 diabetes mellitus with other skin complications; M86.671 Other chronic osteomyelitis, right ankle and foot; L97.516 Non-pressure chronic ulcer of other part of right foot with bone involvement without evidence of necrosis; R60.0 Localized edema; I10 Essential (primary) hypertension; G99.0 Autonomic neuropathy in diseases classified elsewhere; Z01.810 Encounter for preprocedural cardiovascular examination; Z01.811 Encounter for preprocedural respiratory examination ==

== ENCOUNTER → 2021-03-09 | Outpatient (CLI) | payer BC | LOC: WCC 09:25 | PROVIDERS: ATTEND Podiatrist Foot & Ankle Surgery | DX: E11.621 Type 2 diabetes mellitus with foot ulcer (principal); E11.628 Type 2 diabetes mellitus with other skin complications; M86.671 Other chronic osteomyelitis, right ankle and foot; L97.516 Non-pressure chronic ulcer of other part of right foot with bone involvement without evidence of necrosis; R60.0 Localized edema; I10 Essential (primary) hypertension; G99.0 Autonomic neuropathy in diseases classified elsewhere; Z01.810 Encounter for preprocedural cardiovascular examination; Z01.811 Encounter for preprocedural respiratory examination ==

== ENCOUNTER → 2021-03-10 | Outpatient (CLI) | payer BC | LOC: WCC 09:24 | PROVIDERS: ATTEND Podiatrist Foot & Ankle Surgery | DX: E11.621 Type 2 diabetes mellitus with foot ulcer (principal); E11.628 Type 2 diabetes mellitus with other skin complications; M86.671 Other chronic osteomyelitis, right ankle and foot; L97.516 Non-pressure chronic ulcer of other part of right foot with bone involvement without evidence of necrosis; R60.0 Localized edema; I10 Essential (primary) hypertension; G99.0 Autonomic neuropathy in diseases classified elsewhere; Z01.810 Encounter for preprocedural cardiovascular examination; Z01.811 Encounter for preprocedural respiratory examination ==

== ENCOUNTER → 2021-03-11 | Outpatient (CLI) | payer BC ==
[~2021-03-11] MED LIST changes: +MINERAL OIL/PETROLAT/GLYCERI 6OZ BTL ONE
== END ==
LOC: WCC 11:06
PROVIDERS: ATTEND Podiatrist Foot & Ankle Surgery
DX: E11.621 Type 2 diabetes mellitus with foot ulcer (principal); E11.628 Type 2 diabetes mellitus with other skin complications; M86.671 Other chronic osteomyelitis, right ankle and foot; L97.516 Non-pressure chronic ulcer of other part of right foot with bone involvement without evidence of necrosis; R60.0 Localized edema; I10 Essential (primary) hypertension; G99.0 Autonomic neuropathy in diseases classified elsewhere; Z01.810 Encounter for preprocedural cardiovascular examination; Z01.811 Encounter for preprocedural respiratory examination

== ENCOUNTER → 2021-03-12 | Outpatient (CLI) | payer BC ==
[~2021-03-12] MED LIST changes: -MINERAL OIL/PETROLAT/GLYCERI 6OZ BTL ONE
== END ==
LOC: WCC 15:47
PROVIDERS: ATTEND Podiatrist Foot & Ankle Surgery
DX: E11.621 Type 2 diabetes mellitus with foot ulcer (principal); E11.628 Type 2 diabetes mellitus with other skin complications; M86.671 Other chronic osteomyelitis, right ankle and foot; L97.516 Non-pressure chronic ulcer of other part of right foot with bone involvement without evidence of necrosis; R60.0 Localized edema; I10 Essential (primary) hypertension; G99.0 Autonomic neuropathy in diseases classified elsewhere; Z01.810 Encounter for preprocedural cardiovascular examination; Z01.811 Encounter for preprocedural respiratory examination
CPT/HCPCS: 29581; 99213; G0277

== ENCOUNTER → 2021-03-13 | Outpatient (CLI) | payer BC | LOC: WCC 10:51 | PROVIDERS: ATTEND Podiatrist Foot & Ankle Surgery | DX: E11.621 Type 2 diabetes mellitus with foot ulcer (principal); E11.628 Type 2 diabetes mellitus with other skin complications; M86.171 Other acute osteomyelitis, right ankle and foot; L97.516 Non-pressure chronic ulcer of other part of right foot with bone involvement without evidence of necrosis; R60.0 Localized edema; I10 Essential (primary) hypertension; G99.0 Autonomic neuropathy in diseases classified elsewhere; Z01.810 Encounter for preprocedural cardiovascular examination; Z01.811 Encounter for preprocedural respiratory examination ==

== ENCOUNTER → 2021-03-16 | Outpatient (CLI) | payer BC | LOC: WCC 12:02 | PROVIDERS: ATTEND Podiatrist Foot & Ankle Surgery | DX: E11.621 Type 2 diabetes mellitus with foot ulcer (principal); E11.628 Type 2 diabetes mellitus with other skin complications; M86.671 Other chronic osteomyelitis, right ankle and foot; L97.516 Non-pressure chronic ulcer of other part of right foot with bone involvement without evidence of necrosis; R60.0 Localized edema; I10 Essential (primary) hypertension; G99.0 Autonomic neuropathy in diseases classified elsewhere; Z01.810 Encounter for preprocedural cardiovascular examination; Z01.811 Encounter for preprocedural respiratory examination ==

== ENCOUNTER → 2021-03-17 | Outpatient (CLI) | payer BC | LOC: WCC 10:12 | PROVIDERS: ATTEND Podiatrist Foot & Ankle Surgery | DX: E11.621 Type 2 diabetes mellitus with foot ulcer (principal); E11.628 Type 2 diabetes mellitus with other skin complications; M86.671 Other chronic osteomyelitis, right ankle and foot; L97.516 Non-pressure chronic ulcer of other part of right foot with bone involvement without evidence of necrosis; R60.0 Localized edema; I10 Essential (primary) hypertension; G99.0 Autonomic neuropathy in diseases classified elsewhere; Z01.810 Encounter for preprocedural cardiovascular examination; Z01.811 Encounter for preprocedural respiratory examination | CPT/HCPCS: 11042; 29581; 99213; G0277 ==

== ENCOUNTER → 2021-03-19 | Outpatient (CLI) | payer BC | LOC: WCC 10:12 | PROVIDERS: ATTEND Podiatrist Foot & Ankle Surgery | DX: E11.621 Type 2 diabetes mellitus with foot ulcer (principal); E11.628 Type 2 diabetes mellitus with other skin complications; M86.671 Other chronic osteomyelitis, right ankle and foot; L97.516 Non-pressure chronic ulcer of other part of right foot with bone involvement without evidence of necrosis; R60.0 Localized edema; I10 Essential (primary) hypertension; G99.0 Autonomic neuropathy in diseases classified elsewhere; Z01.810 Encounter for preprocedural cardiovascular examination; Z01.811 Encounter for preprocedural respiratory examination ==

== ENCOUNTER → 2021-03-20 | Outpatient (CLI) | payer BC | LOC: WCC 12:00 | PROVIDERS: ATTEND Podiatrist Foot & Ankle Surgery | DX: E11.621 Type 2 diabetes mellitus with foot ulcer (principal); E11.628 Type 2 diabetes mellitus with other skin complications; M86.671 Other chronic osteomyelitis, right ankle and foot; L97.516 Non-pressure chronic ulcer of other part of right foot with bone involvement without evidence of necrosis; R60.0 Localized edema; I10 Essential (primary) hypertension; G99.0 Autonomic neuropathy in diseases classified elsewhere; Z01.810 Encounter for preprocedural cardiovascular examination; Z01.811 Encounter for preprocedural respiratory examination | CPT/HCPCS: 29581; 99213; G0277 ==

== ENCOUNTER → 2021-03-23 | Outpatient (CLI) | payer BC | LOC: WCC 09:00 | PROVIDERS: ATTEND Podiatrist Foot & Ankle Surgery | DX: E11.621 Type 2 diabetes mellitus with foot ulcer (principal); E11.628 Type 2 diabetes mellitus with other skin complications; M86.671 Other chronic osteomyelitis, right ankle and foot; L97.516 Non-pressure chronic ulcer of other part of right foot with bone involvement without evidence of necrosis; R60.0 Localized edema; I10 Essential (primary) hypertension; G99.0 Autonomic neuropathy in diseases classified elsewhere; Z01.810 Encounter for preprocedural cardiovascular examination; Z01.811 Encounter for preprocedural respiratory examination ==

== ENCOUNTER → 2021-03-24 | Outpatient (CLI) | payer BC | LOC: WCC 08:22 | PROVIDERS: ATTEND Podiatrist Foot & Ankle Surgery | DX: E11.621 Type 2 diabetes mellitus with foot ulcer (principal); E11.628 Type 2 diabetes mellitus with other skin complications; M86.671 Other chronic osteomyelitis, right ankle and foot; L97.516 Non-pressure chronic ulcer of other part of right foot with bone involvement without evidence of necrosis; R60.0 Localized edema; I10 Essential (primary) hypertension; G99.0 Autonomic neuropathy in diseases classified elsewhere; Z01.810 Encounter for preprocedural cardiovascular examination; Z01.811 Encounter for preprocedural respiratory examination | CPT/HCPCS: 11042; 29581; G0277 ==

== ENCOUNTER → 2021-03-26 | Outpatient (CLI) | payer BC | LOC: WCC 09:15 | PROVIDERS: ATTEND Podiatrist Foot & Ankle Surgery | DX: E11.621 Type 2 diabetes mellitus with foot ulcer (principal); E11.628 Type 2 diabetes mellitus with other skin complications; M86.671 Other chronic osteomyelitis, right ankle and foot; L97.516 Non-pressure chronic ulcer of other part of right foot with bone involvement without evidence of necrosis; R60.0 Localized edema; I10 Essential (primary) hypertension; G99.0 Autonomic neuropathy in diseases classified elsewhere; Z01.810 Encounter for preprocedural cardiovascular examination; Z01.811 Encounter for preprocedural respiratory examination ==

== ENCOUNTER → 2021-03-27 | Outpatient (CLI) | payer BC | LOC: WCC 10:39 | PROVIDERS: ATTEND Podiatrist Foot & Ankle Surgery | DX: E11.621 Type 2 diabetes mellitus with foot ulcer (principal); E11.628 Type 2 diabetes mellitus with other skin complications; M86.671 Other chronic osteomyelitis, right ankle and foot; L97.516 Non-pressure chronic ulcer of other part of right foot with bone involvement without evidence of necrosis; R60.0 Localized edema; I10 Essential (primary) hypertension; G99.0 Autonomic neuropathy in diseases classified elsewhere; Z01.810 Encounter for preprocedural cardiovascular examination; Z01.811 Encounter for preprocedural respiratory examination ==

== ENCOUNTER → 2021-03-30 | Outpatient (CLI) | payer BC | LOC: WCC 09:36 | PROVIDERS: ATTEND Podiatrist Foot & Ankle Surgery | DX: E11.621 Type 2 diabetes mellitus with foot ulcer (principal); E11.628 Type 2 diabetes mellitus with other skin complications; L97.516 Non-pressure chronic ulcer of other part of right foot with bone involvement without evidence of necrosis; M86.671 Other chronic osteomyelitis, right ankle and foot; R60.0 Localized edema; I10 Essential (primary) hypertension; G99.0 Autonomic neuropathy in diseases classified elsewhere; Z01.810 Encounter for preprocedural cardiovascular examination; Z01.811 Encounter for preprocedural respiratory examination ==

== ENCOUNTER → 2021-03-31 | Outpatient (CLI) | payer BC | LOC: WCC 09:15 | PROVIDERS: ATTEND Podiatrist Foot & Ankle Surgery | DX: E11.621 Type 2 diabetes mellitus with foot ulcer (principal); E11.628 Type 2 diabetes mellitus with other skin complications; M86.671 Other chronic osteomyelitis, right ankle and foot; L97.516 Non-pressure chronic ulcer of other part of right foot with bone involvement without evidence of necrosis; R60.0 Localized edema; I10 Essential (primary) hypertension; G99.0 Autonomic neuropathy in diseases classified elsewhere; Z01.810 Encounter for preprocedural cardiovascular examination; Z01.811 Encounter for preprocedural respiratory examination | CPT/HCPCS: 11042; 29581; G0277 ==

== ENCOUNTER → 2021-04-07 | Outpatient (CLI) | payer BC ==
[~2021-04-07] MED LIST changes: +MINERAL OIL/PETROLAT/GLYCERI 6OZ BTL ONE; +TRYPSIN/BALSAM PERU/CASTOR OIL ONE
== END ==
LOC: WCC 14:57
PROVIDERS: ATTEND Podiatrist Foot & Ankle Surgery
DX: E11.621 Type 2 diabetes mellitus with foot ulcer (principal); E11.628 Type 2 diabetes mellitus with other skin complications; M86.671 Other chronic osteomyelitis, right ankle and foot; L97.516 Non-pressure chronic ulcer of other part of right foot with bone involvement without evidence of necrosis; R60.0 Localized edema; I10 Essential (primary) hypertension; G99.0 Autonomic neuropathy in diseases classified elsewhere; Z01.810 Encounter for preprocedural cardiovascular examination; Z01.811 Encounter for preprocedural respiratory examination

== ENCOUNTER → 2021-04-09 | Outpatient (CLI) | payer BC ==
[~2021-04-09] MED LIST changes: -MINERAL OIL/PETROLAT/GLYCERI 6OZ BTL ONE; -TRYPSIN/BALSAM PERU/CASTOR OIL ONE
== END ==
LOC: WCC 12:43
PROVIDERS: ATTEND Podiatrist Foot & Ankle Surgery
DX: E11.621 Type 2 diabetes mellitus with foot ulcer (principal); E11.628 Type 2 diabetes mellitus with other skin complications; M86.671 Other chronic osteomyelitis, right ankle and foot; L97.516 Non-pressure chronic ulcer of other part of right foot with bone involvement without evidence of necrosis; R60.0 Localized edema; I10 Essential (primary) hypertension; G99.0 Autonomic neuropathy in diseases classified elsewhere; Z01.810 Encounter for preprocedural cardiovascular examination; Z01.811 Encounter for preprocedural respiratory examination

== ENCOUNTER → 2021-04-21 | Outpatient (CLI) | payer BC ==
[~2021-04-21] MED LIST changes: +MINERAL OIL/PETROLAT/GLYCERI 6OZ BTL ONE; +TRYPSIN/BALSAM PERU/CASTOR OIL ONE
== END ==
LOC: WCC 14:21
PROVIDERS: ATTEND Podiatrist Foot & Ankle Surgery
DX: E11.621 Type 2 diabetes mellitus with foot ulcer (principal); E11.628 Type 2 diabetes mellitus with other skin complications; M86.671 Other chronic osteomyelitis, right ankle and foot; L97.516 Non-pressure chronic ulcer of other part of right foot with bone involvement without evidence of necrosis; R60.0 Localized edema; I10 Essential (primary) hypertension; G99.0 Autonomic neuropathy in diseases classified elsewhere; Z01.810 Encounter for preprocedural cardiovascular examination; Z01.811 Encounter for preprocedural respiratory examination
CPT/HCPCS: 36415; 82948

== ENCOUNTER → 2021-04-22 | Outpatient (CLI) | payer BC ==
[~2021-04-22] MED LIST changes: -MINERAL OIL/PETROLAT/GLYCERI 6OZ BTL ONE; -TRYPSIN/BALSAM PERU/CASTOR OIL ONE
== END ==
LOC: WCC 10:12
PROVIDERS: ATTEND Podiatrist Foot & Ankle Surgery
DX: E11.621 Type 2 diabetes mellitus with foot ulcer (principal); E11.628 Type 2 diabetes mellitus with other skin complications; M86.671 Other chronic osteomyelitis, right ankle and foot; L97.516 Non-pressure chronic ulcer of other part of right foot with bone involvement without evidence of necrosis; R60.0 Localized edema; I10 Essential (primary) hypertension; G99.0 Autonomic neuropathy in diseases classified elsewhere; Z01.810 Encounter for preprocedural cardiovascular examination; Z01.811 Encounter for preprocedural respiratory examination

== ENCOUNTER → 2021-04-24 | Outpatient (CLI) | payer BC | LOC: WCC 09:31 | PROVIDERS: ATTEND Podiatrist Foot & Ankle Surgery | DX: E11.621 Type 2 diabetes mellitus with foot ulcer (principal); E11.628 Type 2 diabetes mellitus with other skin complications; M86.671 Other chronic osteomyelitis, right ankle and foot; L97.516 Non-pressure chronic ulcer of other part of right foot with bone involvement without evidence of necrosis; R60.0 Localized edema; I10 Essential (primary) hypertension; G99.0 Autonomic neuropathy in diseases classified elsewhere; Z01.810 Encounter for preprocedural cardiovascular examination; Z01.811 Encounter for preprocedural respiratory examination ==

== ENCOUNTER → 2021-04-27 | Outpatient (CLI) | payer BC | LOC: WCC 09:24 | PROVIDERS: ATTEND Podiatrist Foot & Ankle Surgery | DX: E11.621 Type 2 diabetes mellitus with foot ulcer (principal); E11.628 Type 2 diabetes mellitus with other skin complications; M86.671 Other chronic osteomyelitis, right ankle and foot; L97.516 Non-pressure chronic ulcer of other part of right foot with bone involvement without evidence of necrosis; R60.0 Localized edema; I10 Essential (primary) hypertension; G99.0 Autonomic neuropathy in diseases classified elsewhere; Z01.810 Encounter for preprocedural cardiovascular examination; Z01.811 Encounter for preprocedural respiratory examination ==

== ENCOUNTER → 2021-04-29 | Outpatient (CLI) | payer BC | LOC: WCC 10:14 | PROVIDERS: ATTEND Podiatrist Foot & Ankle Surgery | DX: E11.621 Type 2 diabetes mellitus with foot ulcer (principal); E11.628 Type 2 diabetes mellitus with other skin complications; M86.671 Other chronic osteomyelitis, right ankle and foot; L97.516 Non-pressure chronic ulcer of other part of right foot with bone involvement without evidence of necrosis; R60.0 Localized edema; I10 Essential (primary) hypertension; G99.0 Autonomic neuropathy in diseases classified elsewhere; Z01.810 Encounter for preprocedural cardiovascular examination; Z01.811 Encounter for preprocedural respiratory examination ==

== ENCOUNTER → 2021-05-01 | Outpatient (CLI) | payer BC | LOC: WCC 13:19 | PROVIDERS: ATTEND Podiatrist Foot & Ankle Surgery | DX: E11.621 Type 2 diabetes mellitus with foot ulcer (principal); E11.628 Type 2 diabetes mellitus with other skin complications; M86.671 Other chronic osteomyelitis, right ankle and foot; L97.516 Non-pressure chronic ulcer of other part of right foot with bone involvement without evidence of necrosis; R60.0 Localized edema; I10 Essential (primary) hypertension; G99.0 Autonomic neuropathy in diseases classified elsewhere; Z01.810 Encounter for preprocedural cardiovascular examination; Z01.811 Encounter for preprocedural respiratory examination | CPT/HCPCS: 29581; 99213; G0277 ==

== ENCOUNTER → 2021-05-05 | Outpatient (CLI) | payer BC | LOC: WCC 08:36 | PROVIDERS: ATTEND Podiatrist Foot & Ankle Surgery | DX: E11.621 Type 2 diabetes mellitus with foot ulcer (principal); E11.628 Type 2 diabetes mellitus with other skin complications; M86.671 Other chronic osteomyelitis, right ankle and foot; L97.516 Non-pressure chronic ulcer of other part of right foot with bone involvement without evidence of necrosis; R60.0 Localized edema; I10 Essential (primary) hypertension; G99.0 Autonomic neuropathy in diseases classified elsewhere; Z01.810 Encounter for preprocedural cardiovascular examination; Z01.811 Encounter for preprocedural respiratory examination | CPT/HCPCS: 11042; 29581; G0277 ==

== ENCOUNTER → 2021-05-06 | Outpatient (CLI) | payer BC | LOC: WCC 12:52 | PROVIDERS: ATTEND Podiatrist Foot & Ankle Surgery | DX: E11.621 Type 2 diabetes mellitus with foot ulcer (principal); E11.628 Type 2 diabetes mellitus with other skin complications; M86.671 Other chronic osteomyelitis, right ankle and foot; L97.516 Non-pressure chronic ulcer of other part of right foot with bone involvement without evidence of necrosis; R60.0 Localized edema; I10 Essential (primary) hypertension; G99.0 Autonomic neuropathy in diseases classified elsewhere; Z01.810 Encounter for preprocedural cardiovascular examination; Z01.811 Encounter for preprocedural respiratory examination ==

== ENCOUNTER → 2021-05-11 | Outpatient (CLI) | payer BC | LOC: WCC 09:49 | PROVIDERS: ATTEND Podiatrist Foot & Ankle Surgery | DX: E11.621 Type 2 diabetes mellitus with foot ulcer (principal); E11.628 Type 2 diabetes mellitus with other skin complications; M86.671 Other chronic osteomyelitis, right ankle and foot; L97.516 Non-pressure chronic ulcer of other part of right foot with bone involvement without evidence of necrosis; R60.0 Localized edema; G99.0 Autonomic neuropathy in diseases classified elsewhere; I10 Essential (primary) hypertension; Z01.810 Encounter for preprocedural cardiovascular examination; Z01.811 Encounter for preprocedural respiratory examination ==

== ENCOUNTER → 2021-05-12 | Outpatient (CLI) | payer BC ==
[~2021-05-12] MED LIST changes: +MINERAL OIL/PETROLAT/GLYCERI 6OZ BTL ONE; +MUPIROCIN 2% OINT 22 GM TUBE ONE; +TRYPSIN/BALSAM PERU/CASTOR OIL ONE
== END ==
LOC: WCC 12:09
PROVIDERS: ATTEND Podiatrist Foot & Ankle Surgery
DX: E11.621 Type 2 diabetes mellitus with foot ulcer (principal); E11.628 Type 2 diabetes mellitus with other skin complications; M86.671 Other chronic osteomyelitis, right ankle and foot; L97.516 Non-pressure chronic ulcer of other part of right foot with bone involvement without evidence of necrosis; R60.0 Localized edema; I10 Essential (primary) hypertension; G99.0 Autonomic neuropathy in diseases classified elsewhere; Z01.810 Encounter for preprocedural cardiovascular examination; Z01.811 Encounter for preprocedural respiratory examination
CPT/HCPCS: 11042; 36415; 82948; 99213; G0277

== ENCOUNTER → 2021-05-14 | Outpatient (CLI) | payer BC ==
[~2021-05-14] MED LIST changes: -MINERAL OIL/PETROLAT/GLYCERI 6OZ BTL ONE; -MUPIROCIN 2% OINT 22 GM TUBE ONE; -TRYPSIN/BALSAM PERU/CASTOR OIL ONE
== END ==
LOC: WCC 10:33
PROVIDERS: ATTEND Podiatrist Foot & Ankle Surgery
DX: E11.621 Type 2 diabetes mellitus with foot ulcer (principal); E11.628 Type 2 diabetes mellitus with other skin complications; M86.671 Other chronic osteomyelitis, right ankle and foot; L97.516 Non-pressure chronic ulcer of other part of right foot with bone involvement without evidence of necrosis; R60.0 Localized edema; I10 Essential (primary) hypertension; G99.0 Autonomic neuropathy in diseases classified elsewhere; Z01.810 Encounter for preprocedural cardiovascular examination; Z01.811 Encounter for preprocedural respiratory examination
CPT/HCPCS: 99213; G0277

== ENCOUNTER → 2021-05-15 | Outpatient (CLI) | payer BC | LOC: WCC 09:03 | PROVIDERS: ATTEND Podiatrist Foot & Ankle Surgery | DX: E11.621 Type 2 diabetes mellitus with foot ulcer (principal); E11.628 Type 2 diabetes mellitus with other skin complications; M86.671 Other chronic osteomyelitis, right ankle and foot; L97.516 Non-pressure chronic ulcer of other part of right foot with bone involvement without evidence of necrosis; R60.0 Localized edema; I10 Essential (primary) hypertension; G99.0 Autonomic neuropathy in diseases classified elsewhere; Z01.810 Encounter for preprocedural cardiovascular examination; Z01.811 Encounter for preprocedural respiratory examination | CPT/HCPCS: 99212; G0277 ==

== ENCOUNTER → 2021-05-18 | Outpatient (CLI) | payer BC | LOC: WCC 09:17 | PROVIDERS: ATTEND Podiatrist Foot & Ankle Surgery | DX: E11.621 Type 2 diabetes mellitus with foot ulcer (principal); E11.628 Type 2 diabetes mellitus with other skin complications; M86.671 Other chronic osteomyelitis, right ankle and foot; L97.516 Non-pressure chronic ulcer of other part of right foot with bone involvement without evidence of necrosis; R60.0 Localized edema; I10 Essential (primary) hypertension; G99.0 Autonomic neuropathy in diseases classified elsewhere; Z01.810 Encounter for preprocedural cardiovascular examination; Z01.811 Encounter for preprocedural respiratory examination | CPT/HCPCS: 99213; G0277 ==

== ENCOUNTER → 2021-05-19 | Outpatient (CLI) | payer BC ==
[2021-05-19 10:32] LABS: BASOPHILS % 0.3 % (0.0-1.0); EOSINOPHILS # (AUTO) 0.2 (0.0-0.4); EOSINOPHILS % 2.5 % (0.0-6.0); HEMATOCRIT 36.9 % (38.2-49.6); HEMOGLOBIN 11.1 g/dL (14.0-18.0); LYMPHOCYTES # (AUTO) 1.5 (1.0-3.2); MEAN CORPUSCULAR HEMOGLOBIN 24.2 pg (28-32); MEAN CORPUSCULAR HGB CONC 30.1 g/dL (31-35); MEAN CORPUSCULAR VOLUME 80.4 fL (81-99); MONOCYTES # (AUTO) 0.5 (0.2-0.8); NEUTROPHILS # (AUTO) 4.2 (2.1-6.9); PLATELET COUNT 371 x10e3/uL (140-360); RED BLOOD COUNT 4.59 x10e6/uL (4.3-5.7); RED CELL DISTRIBUTION WIDTH 14.8 % (11.7-14.4)
[2021-05-19 11:00] LABS: ALBUMIN 3.2 g/dL (3.5-5.0); ALBUMIN/GLOBULIN RATIO 0.6 (0.8-2.0); ANION GAP 15.7 mmol/L (8-16); CALCIUM 9.7 mg/dL (8.4-10.2); CREATININE, SERUM 1.94 mg/dL (0.72-1.25); POTASSIUM 4.7 mmol/L (3.5-5.1)
== END ==
LOC: WCC 10:11
PROVIDERS: ATTEND Podiatrist Foot & Ankle Surgery
DX: E11.621 Type 2 diabetes mellitus with foot ulcer (principal); E11.628 Type 2 diabetes mellitus with other skin complications; L97.516 Non-pressure chronic ulcer of other part of right foot with bone involvement without evidence of necrosis; M86.671 Other chronic osteomyelitis, right ankle and foot; R60.0 Localized edema; I10 Essential (primary) hypertension; G99.0 Autonomic neuropathy in diseases classified elsewhere; Z01.810 Encounter for preprocedural cardiovascular examination; Z01.811 Encounter for preprocedural respiratory examination
CPT/HCPCS: 11042; 36415; 80053; 83036; 84134; 85025; 85651; 86141; 87071; 87075; 87205; 99213; G0277; 87186

== ENCOUNTER → 2021-05-20 | Outpatient (CLI) | payer BC | LOC: WCC 10:04 | PROVIDERS: ATTEND Podiatrist Foot & Ankle Surgery | DX: E11.621 Type 2 diabetes mellitus with foot ulcer (principal); E11.628 Type 2 diabetes mellitus with other skin complications; M86.671 Other chronic osteomyelitis, right ankle and foot; L97.516 Non-pressure chronic ulcer of other part of right foot with bone involvement without evidence of necrosis; R60.0 Localized edema; I10 Essential (primary) hypertension; G99.0 Autonomic neuropathy in diseases classified elsewhere; Z01.810 Encounter for preprocedural cardiovascular examination; Z01.811 Encounter for preprocedural respiratory examination | CPT/HCPCS: 99213; G0277 ==

== ENCOUNTER → 2021-05-21 | Outpatient (CLI) | payer BC | LOC: WCC 11:14 | PROVIDERS: ATTEND Podiatrist Foot & Ankle Surgery | DX: E11.621 Type 2 diabetes mellitus with foot ulcer (principal); E11.628 Type 2 diabetes mellitus with other skin complications; M86.671 Other chronic osteomyelitis, right ankle and foot; L97.516 Non-pressure chronic ulcer of other part of right foot with bone involvement without evidence of necrosis; R60.0 Localized edema; I10 Essential (primary) hypertension; G99.0 Autonomic neuropathy in diseases classified elsewhere; Z01.810 Encounter for preprocedural cardiovascular examination; Z01.811 Encounter for preprocedural respiratory examination | CPT/HCPCS: 99213; G0277 ==

== ENCOUNTER → 2021-05-22 | Outpatient (CLI) | payer BC | LOC: WCC 13:45 | PROVIDERS: ATTEND Podiatrist Foot & Ankle Surgery | DX: E11.621 Type 2 diabetes mellitus with foot ulcer (principal); E11.628 Type 2 diabetes mellitus with other skin complications; M86.671 Other chronic osteomyelitis, right ankle and foot; L97.516 Non-pressure chronic ulcer of other part of right foot with bone involvement without evidence of necrosis; R60.0 Localized edema; I10 Essential (primary) hypertension; G99.0 Autonomic neuropathy in diseases classified elsewhere; Z01.810 Encounter for preprocedural cardiovascular examination; Z01.811 Encounter for preprocedural respiratory examination | CPT/HCPCS: 99213; G0277 ==

== ENCOUNTER → 2021-05-26 | Outpatient (CLI) | payer BC | LOC: WCC 09:39 | PROVIDERS: ATTEND Podiatrist Foot & Ankle Surgery | DX: E11.621 Type 2 diabetes mellitus with foot ulcer (principal); E11.628 Type 2 diabetes mellitus with other skin complications; M86.671 Other chronic osteomyelitis, right ankle and foot; L97.516 Non-pressure chronic ulcer of other part of right foot with bone involvement without evidence of necrosis; L97.521 Non-pressure chronic ulcer of other part of left foot limited to breakdown of skin; R60.0 Localized edema; I10 Essential (primary) hypertension; G99.0 Autonomic neuropathy in diseases classified elsewhere; B96.89 Other specified bacterial agents as the cause of diseases classified elsewhere; Z01.810 Encounter for preprocedural cardiovascular examination; Z01.811 Encounter for preprocedural respiratory examination | CPT/HCPCS: 11042; 99213; G0277 ==

== ENCOUNTER → 2021-05-27 | Outpatient (CLI) | payer BC | LOC: WCC 09:26 | PROVIDERS: ATTEND Podiatrist Foot & Ankle Surgery | DX: E11.621 Type 2 diabetes mellitus with foot ulcer (principal); E11.628 Type 2 diabetes mellitus with other skin complications; M86.671 Other chronic osteomyelitis, right ankle and foot; L97.516 Non-pressure chronic ulcer of other part of right foot with bone involvement without evidence of necrosis; L97.521 Non-pressure chronic ulcer of other part of left foot limited to breakdown of skin; R60.0 Localized edema; I10 Essential (primary) hypertension; G99.0 Autonomic neuropathy in diseases classified elsewhere; B96.89 Other specified bacterial agents as the cause of diseases classified elsewhere; Z01.810 Encounter for preprocedural cardiovascular examination; Z01.811 Encounter for preprocedural respiratory examination ==

== ENCOUNTER → 2021-05-29 | Outpatient (CLI) | payer BC | LOC: WCC 11:40 | PROVIDERS: ATTEND Podiatrist Foot & Ankle Surgery | DX: E11.621 Type 2 diabetes mellitus with foot ulcer (principal); E11.628 Type 2 diabetes mellitus with other skin complications; M86.671 Other chronic osteomyelitis, right ankle and foot; L97.521 Non-pressure chronic ulcer of other part of left foot limited to breakdown of skin; L97.516 Non-pressure chronic ulcer of other part of right foot with bone involvement without evidence of necrosis; R60.0 Localized edema; I10 Essential (primary) hypertension; B96.89 Other specified bacterial agents as the cause of diseases classified elsewhere; G99.0 Autonomic neuropathy in diseases classified elsewhere; Z01.810 Encounter for preprocedural cardiovascular examination; Z01.811 Encounter for preprocedural respiratory examination | CPT/HCPCS: 93923; 99213; G0277 ==

== ENCOUNTER → 2021-06-03 | Outpatient (CLI) | payer BC | LOC: WCC 14:20 | PROVIDERS: ATTEND Podiatrist Foot & Ankle Surgery | DX: E11.621 Type 2 diabetes mellitus with foot ulcer (principal); E11.628 Type 2 diabetes mellitus with other skin complications; M86.671 Other chronic osteomyelitis, right ankle and foot; L97.516 Non-pressure chronic ulcer of other part of right foot with bone involvement without evidence of necrosis; L97.521 Non-pressure chronic ulcer of other part of left foot limited to breakdown of skin; R60.0 Localized edema; I10 Essential (primary) hypertension; G99.0 Autonomic neuropathy in diseases classified elsewhere; B96.89 Other specified bacterial agents as the cause of diseases classified elsewhere; Z01.810 Encounter for preprocedural cardiovascular examination; Z01.811 Encounter for preprocedural respiratory examination | CPT/HCPCS: 99213; G0277 ==

== ENCOUNTER → 2021-06-08 | Outpatient (CLI) | payer BC | LOC: WCC 15:57 | PROVIDERS: ATTEND Podiatrist Foot & Ankle Surgery | DX: E11.621 Type 2 diabetes mellitus with foot ulcer (principal); E11.628 Type 2 diabetes mellitus with other skin complications; M86.671 Other chronic osteomyelitis, right ankle and foot; L97.516 Non-pressure chronic ulcer of other part of right foot with bone involvement without evidence of necrosis; L97.521 Non-pressure chronic ulcer of other part of left foot limited to breakdown of skin; R60.0 Localized edema; I10 Essential (primary) hypertension; G99.0 Autonomic neuropathy in diseases classified elsewhere; B96.89 Other specified bacterial agents as the cause of diseases classified elsewhere; Z01.810 Encounter for preprocedural cardiovascular examination; Z01.811 Encounter for preprocedural respiratory examination | CPT/HCPCS: 36415; 82947; 99213; G0277 ==

== ENCOUNTER → 2021-06-09 | Outpatient (CLI) | payer BC ==
[~2021-06-09] MED LIST changes: +LIDOCAINE VISC 2% SOLN 15 ML UDC ONE; +MINERAL OIL/PETROLAT/GLYCERI 2OZ CRM ONE; +MINERAL OIL/PETROLAT/GLYCERI 6OZ BTL ONE; +MUPIROCIN 2% OINT 22 GM TUBE ONE; +TRYPSIN/BALSAM PERU/CASTOR OIL ONE
== END ==
LOC: WCC 15:13
PROVIDERS: ATTEND Podiatrist Foot & Ankle Surgery
DX: E11.621 Type 2 diabetes mellitus with foot ulcer (principal); E11.628 Type 2 diabetes mellitus with other skin complications; M86.671 Other chronic osteomyelitis, right ankle and foot; L97.516 Non-pressure chronic ulcer of other part of right foot with bone involvement without evidence of necrosis; L97.521 Non-pressure chronic ulcer of other part of left foot limited to breakdown of skin; R60.0 Localized edema; I10 Essential (primary) hypertension; G99.0 Autonomic neuropathy in diseases classified elsewhere; B96.89 Other specified bacterial agents as the cause of diseases classified elsewhere; Z01.810 Encounter for preprocedural cardiovascular examination; Z01.811 Encounter for preprocedural respiratory examination
CPT/HCPCS: 11042; 36415; 82948; 99213; G0277

== ENCOUNTER → 2021-06-10 | Outpatient (CLI) | payer BC ==
[~2021-06-10] MED LIST changes: -LIDOCAINE VISC 2% SOLN 15 ML UDC ONE; -MINERAL OIL/PETROLAT/GLYCERI 2OZ CRM ONE; -MINERAL OIL/PETROLAT/GLYCERI 6OZ BTL ONE; -MUPIROCIN 2% OINT 22 GM TUBE ONE; -TRYPSIN/BALSAM PERU/CASTOR OIL ONE
== END ==
LOC: WCC 10:23
PROVIDERS: ATTEND Podiatrist Foot & Ankle Surgery
DX: E11.621 Type 2 diabetes mellitus with foot ulcer (principal); E11.628 Type 2 diabetes mellitus with other skin complications; M86.671 Other chronic osteomyelitis, right ankle and foot; L97.516 Non-pressure chronic ulcer of other part of right foot with bone involvement without evidence of necrosis; R60.0 Localized edema; I10 Essential (primary) hypertension; G99.0 Autonomic neuropathy in diseases classified elsewhere; B96.89 Other specified bacterial agents as the cause of diseases classified elsewhere; Z01.810 Encounter for preprocedural cardiovascular examination; Z01.811 Encounter for preprocedural respiratory examination
CPT/HCPCS: 99213; G0277

== ENCOUNTER → 2021-06-11 | Outpatient (CLI) | payer BC | LOC: WCC 14:58 | PROVIDERS: ATTEND Podiatrist Foot & Ankle Surgery | DX: E11.621 Type 2 diabetes mellitus with foot ulcer (principal); E11.628 Type 2 diabetes mellitus with other skin complications; M86.671 Other chronic osteomyelitis, right ankle and foot; L97.516 Non-pressure chronic ulcer of other part of right foot with bone involvement without evidence of necrosis; R60.0 Localized edema; I10 Essential (primary) hypertension; G99.0 Autonomic neuropathy in diseases classified elsewhere; B96.89 Other specified bacterial agents as the cause of diseases classified elsewhere; Z01.810 Encounter for preprocedural cardiovascular examination; Z01.811 Encounter for preprocedural respiratory examination ==

== ENCOUNTER → 2021-06-12 | Outpatient (CLI) | payer BC | LOC: WCC 11:05 | PROVIDERS: ATTEND Podiatrist Foot & Ankle Surgery | DX: E11.621 Type 2 diabetes mellitus with foot ulcer (principal); E11.628 Type 2 diabetes mellitus with other skin complications; M86.671 Other chronic osteomyelitis, right ankle and foot; L97.516 Non-pressure chronic ulcer of other part of right foot with bone involvement without evidence of necrosis; R60.0 Localized edema; I10 Essential (primary) hypertension; G99.0 Autonomic neuropathy in diseases classified elsewhere; B96.89 Other specified bacterial agents as the cause of diseases classified elsewhere; Z01.810 Encounter for preprocedural cardiovascular examination; Z01.811 Encounter for preprocedural respiratory examination | CPT/HCPCS: 99212; 99213; G0277 ==

== ENCOUNTER → 2021-06-15 | Outpatient (CLI) | payer BC | LOC: WCC 12:30 | PROVIDERS: ATTEND Podiatrist Foot & Ankle Surgery | DX: E11.621 Type 2 diabetes mellitus with foot ulcer (principal); E11.628 Type 2 diabetes mellitus with other skin complications; M86.671 Other chronic osteomyelitis, right ankle and foot; L97.516 Non-pressure chronic ulcer of other part of right foot with bone involvement without evidence of necrosis; I10 Essential (primary) hypertension; G99.0 Autonomic neuropathy in diseases classified elsewhere; B96.89 Other specified bacterial agents as the cause of diseases classified elsewhere; Z01.810 Encounter for preprocedural cardiovascular examination; Z01.811 Encounter for preprocedural respiratory examination ==

== ENCOUNTER → 2021-06-16 | Outpatient (CLI) | payer BC | LOC: WCC 10:32 | PROVIDERS: ATTEND Podiatrist Foot & Ankle Surgery | DX: E11.621 Type 2 diabetes mellitus with foot ulcer (principal); E11.628 Type 2 diabetes mellitus with other skin complications; M86.671 Other chronic osteomyelitis, right ankle and foot; L97.516 Non-pressure chronic ulcer of other part of right foot with bone involvement without evidence of necrosis; I10 Essential (primary) hypertension; G99.0 Autonomic neuropathy in diseases classified elsewhere; B96.89 Other specified bacterial agents as the cause of diseases classified elsewhere; Z01.810 Encounter for preprocedural cardiovascular examination; Z01.811 Encounter for preprocedural respiratory examination | CPT/HCPCS: 11042; 99213; G0277 ==

== ENCOUNTER → 2021-06-17 | Outpatient (CLI) | payer BC | LOC: WCC 13:09 | PROVIDERS: ATTEND Podiatrist Foot & Ankle Surgery | DX: E11.621 Type 2 diabetes mellitus with foot ulcer (principal); E11.628 Type 2 diabetes mellitus with other skin complications; M86.671 Other chronic osteomyelitis, right ankle and foot; L97.516 Non-pressure chronic ulcer of other part of right foot with bone involvement without evidence of necrosis; I10 Essential (primary) hypertension; G99.0 Autonomic neuropathy in diseases classified elsewhere; B96.89 Other specified bacterial agents as the cause of diseases classified elsewhere; Z01.810 Encounter for preprocedural cardiovascular examination; Z01.811 Encounter for preprocedural respiratory examination | CPT/HCPCS: 99212; G0277 ==

== ENCOUNTER → 2021-06-18 | Outpatient (CLI) | payer BC | LOC: WCC 14:14 | PROVIDERS: ATTEND Podiatrist Foot & Ankle Surgery | DX: E11.621 Type 2 diabetes mellitus with foot ulcer (principal); E11.628 Type 2 diabetes mellitus with other skin complications; M86.671 Other chronic osteomyelitis, right ankle and foot; L97.516 Non-pressure chronic ulcer of other part of right foot with bone involvement without evidence of necrosis; I10 Essential (primary) hypertension; G99.0 Autonomic neuropathy in diseases classified elsewhere; B96.89 Other specified bacterial agents as the cause of diseases classified elsewhere; Z01.810 Encounter for preprocedural cardiovascular examination; Z01.811 Encounter for preprocedural respiratory examination | CPT/HCPCS: 99212; G0277 ==

== ENCOUNTER → 2021-06-19 | Outpatient (CLI) | payer BC | LOC: WCC 12:41 | PROVIDERS: ATTEND Podiatrist Foot & Ankle Surgery | DX: E11.621 Type 2 diabetes mellitus with foot ulcer (principal); E11.628 Type 2 diabetes mellitus with other skin complications; M86.671 Other chronic osteomyelitis, right ankle and foot; L97.516 Non-pressure chronic ulcer of other part of right foot with bone involvement without evidence of necrosis; I10 Essential (primary) hypertension; G99.0 Autonomic neuropathy in diseases classified elsewhere; B96.89 Other specified bacterial agents as the cause of diseases classified elsewhere; Z01.810 Encounter for preprocedural cardiovascular examination; Z01.811 Encounter for preprocedural respiratory examination | CPT/HCPCS: 99212; G0277 ==

== ENCOUNTER → 2021-06-23 | Outpatient (CLI) | payer BC | LOC: WCC 09:34 | PROVIDERS: ATTEND Podiatrist Foot & Ankle Surgery | DX: E11.621 Type 2 diabetes mellitus with foot ulcer (principal); E11.628 Type 2 diabetes mellitus with other skin complications; M86.671 Other chronic osteomyelitis, right ankle and foot; L97.516 Non-pressure chronic ulcer of other part of right foot with bone involvement without evidence of necrosis; I10 Essential (primary) hypertension; G99.0 Autonomic neuropathy in diseases classified elsewhere; B96.89 Other specified bacterial agents as the cause of diseases classified elsewhere; Z01.810 Encounter for preprocedural cardiovascular examination; Z01.811 Encounter for preprocedural respiratory examination | CPT/HCPCS: 11042; 99212; G0277 ==

== ENCOUNTER → 2021-06-30 | Outpatient (CLI) | payer BC | LOC: WCC 10:18 | PROVIDERS: ATTEND Podiatrist Foot & Ankle Surgery | DX: E11.621 Type 2 diabetes mellitus with foot ulcer (principal); E11.628 Type 2 diabetes mellitus with other skin complications; M86.671 Other chronic osteomyelitis, right ankle and foot; L97.516 Non-pressure chronic ulcer of other part of right foot with bone involvement without evidence of necrosis; I10 Essential (primary) hypertension; G99.0 Autonomic neuropathy in diseases classified elsewhere; Z01.810 Encounter for preprocedural cardiovascular examination; Z01.811 Encounter for preprocedural respiratory examination ==

== ENCOUNTER → 2021-07-07 | Outpatient (CLI) | payer BC | LOC: WCC 14:24 | PROVIDERS: ATTEND Podiatrist Foot & Ankle Surgery | DX: E11.621 Type 2 diabetes mellitus with foot ulcer (principal); E11.628 Type 2 diabetes mellitus with other skin complications; L97.516 Non-pressure chronic ulcer of other part of right foot with bone involvement without evidence of necrosis; M86.671 Other chronic osteomyelitis, right ankle and foot; I10 Essential (primary) hypertension; G99.0 Autonomic neuropathy in diseases classified elsewhere; Z01.810 Encounter for preprocedural cardiovascular examination; Z01.811 Encounter for preprocedural respiratory examination ==

== ENCOUNTER → 2021-07-14 | Outpatient (CLI) | payer BC ==
[~2021-07-14] MED LIST changes: +AMMONIUM LACTATE 12% LOTION 225GM BTL ONE; +LIDOCAINE/PRILOCAINE 2.5-2.5% KIT ONE; +MINERAL OIL/PETROLAT/GLYCERI 6OZ BTL ONE
== END ==
LOC: WCC 11:16
PROVIDERS: ATTEND Podiatrist Foot & Ankle Surgery
DX: E11.621 Type 2 diabetes mellitus with foot ulcer (principal); E11.628 Type 2 diabetes mellitus with other skin complications; L97.516 Non-pressure chronic ulcer of other part of right foot with bone involvement without evidence of necrosis; I10 Essential (primary) hypertension; G99.0 Autonomic neuropathy in diseases classified elsewhere; Z01.810 Encounter for preprocedural cardiovascular examination; Z01.811 Encounter for preprocedural respiratory examination
CPT/HCPCS: 36415; 82948

== ENCOUNTER → 2021-07-17 | Outpatient (CLI) | payer BC ==
[~2021-07-17] MED LIST changes: -AMMONIUM LACTATE 12% LOTION 225GM BTL ONE; -LIDOCAINE/PRILOCAINE 2.5-2.5% KIT ONE; -MINERAL OIL/PETROLAT/GLYCERI 6OZ BTL ONE
== END ==
LOC: WCC 13:30
PROVIDERS: ATTEND Podiatrist Foot & Ankle Surgery
DX: E11.621 Type 2 diabetes mellitus with foot ulcer (principal); E11.628 Type 2 diabetes mellitus with other skin complications; L97.516 Non-pressure chronic ulcer of other part of right foot with bone involvement without evidence of necrosis; I10 Essential (primary) hypertension; G99.0 Autonomic neuropathy in diseases classified elsewhere; Z01.810 Encounter for preprocedural cardiovascular examination; Z01.811 Encounter for preprocedural respiratory examination

== ENCOUNTER → 2021-07-21 | Outpatient (CLI) | payer BC | LOC: WCC 14:38 | PROVIDERS: ATTEND Podiatrist Foot & Ankle Surgery | DX: E11.621 Type 2 diabetes mellitus with foot ulcer (principal); E11.628 Type 2 diabetes mellitus with other skin complications; L97.516 Non-pressure chronic ulcer of other part of right foot with bone involvement without evidence of necrosis; I10 Essential (primary) hypertension; G99.0 Autonomic neuropathy in diseases classified elsewhere; Z01.810 Encounter for preprocedural cardiovascular examination; Z01.811 Encounter for preprocedural respiratory examination ==

== ENCOUNTER → 2021-07-24 | Outpatient (CLI) | payer BC | LOC: WCC 09:51 | PROVIDERS: ATTEND Podiatrist Foot & Ankle Surgery | DX: E11.621 Type 2 diabetes mellitus with foot ulcer (principal); E11.628 Type 2 diabetes mellitus with other skin complications; L97.516 Non-pressure chronic ulcer of other part of right foot with bone involvement without evidence of necrosis; I10 Essential (primary) hypertension; G99.0 Autonomic neuropathy in diseases classified elsewhere; Z01.810 Encounter for preprocedural cardiovascular examination; Z01.811 Encounter for preprocedural respiratory examination ==

== ENCOUNTER → 2021-07-28 | Outpatient (CLI) | payer BC | LOC: WCC 10:46 | PROVIDERS: ATTEND Podiatrist Foot & Ankle Surgery | DX: E11.621 Type 2 diabetes mellitus with foot ulcer (principal); E11.628 Type 2 diabetes mellitus with other skin complications; L97.516 Non-pressure chronic ulcer of other part of right foot with bone involvement without evidence of necrosis; I10 Essential (primary) hypertension; G99.0 Autonomic neuropathy in diseases classified elsewhere; Z01.810 Encounter for preprocedural cardiovascular examination; Z01.811 Encounter for preprocedural respiratory examination ==

== ENCOUNTER → 2021-07-31 | Outpatient (CLI) | payer BC | LOC: WCC 11:16 | PROVIDERS: ATTEND Podiatrist Foot & Ankle Surgery | DX: E11.621 Type 2 diabetes mellitus with foot ulcer (principal); E11.628 Type 2 diabetes mellitus with other skin complications; L97.516 Non-pressure chronic ulcer of other part of right foot with bone involvement without evidence of necrosis; I10 Essential (primary) hypertension; G99.0 Autonomic neuropathy in diseases classified elsewhere; Z01.810 Encounter for preprocedural cardiovascular examination; Z01.811 Encounter for preprocedural respiratory examination ==

== ENCOUNTER → 2021-08-04 | Outpatient (CLI) | payer BC | LOC: WCC 14:07 | PROVIDERS: ATTEND Podiatrist Foot & Ankle Surgery | DX: E11.621 Type 2 diabetes mellitus with foot ulcer (principal); E11.628 Type 2 diabetes mellitus with other skin complications; L97.516 Non-pressure chronic ulcer of other part of right foot with bone involvement without evidence of necrosis; I10 Essential (primary) hypertension; G99.0 Autonomic neuropathy in diseases classified elsewhere; Z01.810 Encounter for preprocedural cardiovascular examination; Z01.811 Encounter for preprocedural respiratory examination ==

== ENCOUNTER → 2021-08-11 | Outpatient (CLI) | payer BC ==
[~2021-08-11] MED LIST changes: +LIDOCAINE VISC 2% SOLN 15 ML UDC ONE; +MUPIROCIN 2% OINT 22 GM TUBE ONE
== END ==
LOC: WCC 15:05
PROVIDERS: ATTEND Podiatrist Foot & Ankle Surgery
DX: E11.621 Type 2 diabetes mellitus with foot ulcer (principal); E11.628 Type 2 diabetes mellitus with other skin complications; L97.516 Non-pressure chronic ulcer of other part of right foot with bone involvement without evidence of necrosis; I10 Essential (primary) hypertension; G99.0 Autonomic neuropathy in diseases classified elsewhere; Z01.810 Encounter for preprocedural cardiovascular examination; Z01.811 Encounter for preprocedural respiratory examination

== ENCOUNTER → 2021-08-18 | Outpatient (CLI) | payer BC ==
[~2021-08-18] MED LIST changes: -LIDOCAINE VISC 2% SOLN 15 ML UDC ONE; -MUPIROCIN 2% OINT 22 GM TUBE ONE
== END ==
LOC: WCC 10:34
PROVIDERS: ATTEND Podiatrist Foot & Ankle Surgery
DX: E11.621 Type 2 diabetes mellitus with foot ulcer (principal); E11.628 Type 2 diabetes mellitus with other skin complications; L97.516 Non-pressure chronic ulcer of other part of right foot with bone involvement without evidence of necrosis; I10 Essential (primary) hypertension; G99.0 Autonomic neuropathy in diseases classified elsewhere; Z01.810 Encounter for preprocedural cardiovascular examination; Z01.811 Encounter for preprocedural respiratory examination

== ENCOUNTER → 2021-08-25 | Outpatient (CLI) | payer BC | LOC: WCC 13:56 | PROVIDERS: ATTEND Podiatrist Foot & Ankle Surgery | DX: E11.621 Type 2 diabetes mellitus with foot ulcer (principal); E11.628 Type 2 diabetes mellitus with other skin complications; L97.516 Non-pressure chronic ulcer of other part of right foot with bone involvement without evidence of necrosis; I10 Essential (primary) hypertension; G99.0 Autonomic neuropathy in diseases classified elsewhere; Z01.810 Encounter for preprocedural cardiovascular examination; Z01.811 Encounter for preprocedural respiratory examination ==

== ENCOUNTER → 2021-09-01 | Outpatient (CLI) | payer BC | LOC: WCC 12:20 | PROVIDERS: ATTEND Podiatrist Foot & Ankle Surgery | DX: E11.621 Type 2 diabetes mellitus with foot ulcer (principal); E11.628 Type 2 diabetes mellitus with other skin complications; L97.516 Non-pressure chronic ulcer of other part of right foot with bone involvement without evidence of necrosis; I10 Essential (primary) hypertension; G99.0 Autonomic neuropathy in diseases classified elsewhere; Z01.810 Encounter for preprocedural cardiovascular examination; Z01.811 Encounter for preprocedural respiratory examination ==

== ENCOUNTER → 2021-09-15 | Outpatient (CLI) | payer BC | LOC: WCC 14:43 | PROVIDERS: ATTEND Podiatrist Foot & Ankle Surgery | DX: E11.621 Type 2 diabetes mellitus with foot ulcer (principal); E11.628 Type 2 diabetes mellitus with other skin complications; L97.516 Non-pressure chronic ulcer of other part of right foot with bone involvement without evidence of necrosis; I10 Essential (primary) hypertension; G99.0 Autonomic neuropathy in diseases classified elsewhere; Z01.810 Encounter for preprocedural cardiovascular examination; Z01.811 Encounter for preprocedural respiratory examination ==

== ENCOUNTER → 2021-09-22 | Outpatient (CLI) | payer BC | LOC: WCC 10:49 | PROVIDERS: ATTEND Podiatrist Foot & Ankle Surgery | DX: E11.621 Type 2 diabetes mellitus with foot ulcer (principal); E11.628 Type 2 diabetes mellitus with other skin complications; L97.516 Non-pressure chronic ulcer of other part of right foot with bone involvement without evidence of necrosis; I10 Essential (primary) hypertension; G99.0 Autonomic neuropathy in diseases classified elsewhere; Z01.810 Encounter for preprocedural cardiovascular examination; Z01.811 Encounter for preprocedural respiratory examination ==

== ENCOUNTER → 2021-09-29 | Outpatient (CLI) | payer BC | LOC: WCC 10:19 | PROVIDERS: ATTEND Podiatrist Foot & Ankle Surgery | DX: E11.621 Type 2 diabetes mellitus with foot ulcer (principal); E11.628 Type 2 diabetes mellitus with other skin complications; L97.516 Non-pressure chronic ulcer of other part of right foot with bone involvement without evidence of necrosis; G99.0 Autonomic neuropathy in diseases classified elsewhere; I10 Essential (primary) hypertension; Z01.810 Encounter for preprocedural cardiovascular examination; Z01.811 Encounter for preprocedural respiratory examination ==

== ENCOUNTER → 2021-10-06 | Outpatient (CLI) | payer BC | LOC: WCC 10:51 | PROVIDERS: ATTEND Podiatrist Foot & Ankle Surgery | DX: E11.621 Type 2 diabetes mellitus with foot ulcer (principal); E11.628 Type 2 diabetes mellitus with other skin complications; L97.516 Non-pressure chronic ulcer of other part of right foot with bone involvement without evidence of necrosis; I10 Essential (primary) hypertension; G99.0 Autonomic neuropathy in diseases classified elsewhere; Z01.810 Encounter for preprocedural cardiovascular examination; Z01.811 Encounter for preprocedural respiratory examination ==

== ENCOUNTER → 2021-10-13 | Outpatient (CLI) | payer BC | LOC: WCC 15:59 | PROVIDERS: ATTEND Podiatrist Foot & Ankle Surgery | DX: E11.621 Type 2 diabetes mellitus with foot ulcer (principal); E11.628 Type 2 diabetes mellitus with other skin complications; L97.411 Non-pressure chronic ulcer of right heel and midfoot limited to breakdown of skin; L97.516 Non-pressure chronic ulcer of other part of right foot with bone involvement without evidence of necrosis; I10 Essential (primary) hypertension; G99.0 Autonomic neuropathy in diseases classified elsewhere; Z01.810 Encounter for preprocedural cardiovascular examination; Z01.811 Encounter for preprocedural respiratory examination | CPT/HCPCS: 87071; 87075; 87186; 87205 ==

== ENCOUNTER → 2021-10-27 | Outpatient (CLI) | payer BC | LOC: WCC 11:17 | PROVIDERS: ATTEND Podiatrist Foot & Ankle Surgery | DX: E11.621 Type 2 diabetes mellitus with foot ulcer (principal); E11.628 Type 2 diabetes mellitus with other skin complications; L97.411 Non-pressure chronic ulcer of right heel and midfoot limited to breakdown of skin; L97.516 Non-pressure chronic ulcer of other part of right foot with bone involvement without evidence of necrosis; G99.0 Autonomic neuropathy in diseases classified elsewhere; I10 Essential (primary) hypertension; B96.29 Other Escherichia coli [E. coli] as the cause of diseases classified elsewhere; B96.89 Other specified bacterial agents as the cause of diseases classified elsewhere; Z01.810 Encounter for preprocedural cardiovascular examination; Z01.811 Encounter for preprocedural respiratory examination ==

== ENCOUNTER → 2021-11-03 | Outpatient (CLI) | payer BC | LOC: WCC 11:05 | PROVIDERS: ATTEND Podiatrist Foot & Ankle Surgery | DX: E11.621 Type 2 diabetes mellitus with foot ulcer (principal); E11.628 Type 2 diabetes mellitus with other skin complications; L97.411 Non-pressure chronic ulcer of right heel and midfoot limited to breakdown of skin; L97.516 Non-pressure chronic ulcer of other part of right foot with bone involvement without evidence of necrosis; G99.0 Autonomic neuropathy in diseases classified elsewhere; I10 Essential (primary) hypertension; B96.29 Other Escherichia coli [E. coli] as the cause of diseases classified elsewhere; B96.89 Other specified bacterial agents as the cause of diseases classified elsewhere; Z01.810 Encounter for preprocedural cardiovascular examination; Z01.811 Encounter for preprocedural respiratory examination | CPT/HCPCS: 87071; 87075; 87205 ==

== ENCOUNTER → 2021-11-10 | Outpatient (CLI) | payer BC | LOC: WCC 15:38 | PROVIDERS: ATTEND Podiatrist Foot & Ankle Surgery | DX: E11.621 Type 2 diabetes mellitus with foot ulcer (principal); E11.628 Type 2 diabetes mellitus with other skin complications; L97.411 Non-pressure chronic ulcer of right heel and midfoot limited to breakdown of skin; L97.516 Non-pressure chronic ulcer of other part of right foot with bone involvement without evidence of necrosis; I10 Essential (primary) hypertension; G99.0 Autonomic neuropathy in diseases classified elsewhere; B96.89 Other specified bacterial agents as the cause of diseases classified elsewhere; B96.29 Other Escherichia coli [E. coli] as the cause of diseases classified elsewhere; Z01.810 Encounter for preprocedural cardiovascular examination; Z01.811 Encounter for preprocedural respiratory examination ==

== ENCOUNTER → 2021-11-17 | Outpatient (CLI) | payer BC ==
[2021-11-17 11:23] LABS: BASOPHILS % 0.3 % (0.0-1.0); EOSINOPHILS # (AUTO) 0.2 (0.0-0.4); EOSINOPHILS % 2.4 % (0.0-6.0); HEMATOCRIT 26.9 % (38.2-49.6); HEMOGLOBIN 8.2 g/dL (14.0-18.0); LYMPHOCYTES # (AUTO) 1.8 (1.0-3.2); MEAN CORPUSCULAR HEMOGLOBIN 23.9 pg (28-32); MEAN CORPUSCULAR HGB CONC 30.5 g/dL (31-35); MEAN CORPUSCULAR VOLUME 78.4 fL (81-99); MONOCYTES # (AUTO) 0.6 (0.2-0.8); MONOCYTES % 8.4 % (4.4-11.3); NEUTROPHILS # (AUTO) 4.4 (2.1-6.9); NEUTROPHILS % 62.6 % (38.7-80.0); PLATELET COUNT 464 x10e3/uL (140-360); RED BLOOD COUNT 3.43 x10e6/uL (4.3-5.7); RED CELL DISTRIBUTION WIDTH 15.1 % (11.7-14.4)
[2021-11-17 11:45] LABS: ALBUMIN 2.4 g/dL (3.5-5.0); ALBUMIN/GLOBULIN RATIO 0.4 (0.8-2.0); ANION GAP 13.4 mmol/L (8-16); CALCIUM 8.9 mg/dL (8.4-10.2); CREATININE, SERUM 2.06 mg/dL (0.72-1.25); POTASSIUM 4.4 mmol/L (3.5-5.1)
== END ==
LOC: WCC 08:33
PROVIDERS: ATTEND Podiatrist Foot & Ankle Surgery
DX: E11.621 Type 2 diabetes mellitus with foot ulcer (principal); E11.628 Type 2 diabetes mellitus with other skin complications; M86.171 Other acute osteomyelitis, right ankle and foot; L97.411 Non-pressure chronic ulcer of right heel and midfoot limited to breakdown of skin; L97.516 Non-pressure chronic ulcer of other part of right foot with bone involvement without evidence of necrosis; R60.0 Localized edema; G99.0 Autonomic neuropathy in diseases classified elsewhere; I10 Essential (primary) hypertension; B96.29 Other Escherichia coli [E. coli] as the cause of diseases classified elsewhere; B96.89 Other specified bacterial agents as the cause of diseases classified elsewhere; Z01.810 Encounter for preprocedural cardiovascular examination; Z01.811 Encounter for preprocedural respiratory examination
CPT/HCPCS: 36415; 80053; 83036; 84134; 85025; 86140

== ENCOUNTER → 2021-11-24 | Outpatient (CLI) | payer BC | LOC: WCC 14:09 | PROVIDERS: ATTEND Podiatrist Foot & Ankle Surgery | DX: E11.621 Type 2 diabetes mellitus with foot ulcer (principal); E11.628 Type 2 diabetes mellitus with other skin complications; M86.171 Other acute osteomyelitis, right ankle and foot; L97.411 Non-pressure chronic ulcer of right heel and midfoot limited to breakdown of skin; L97.516 Non-pressure chronic ulcer of other part of right foot with bone involvement without evidence of necrosis; R60.0 Localized edema; I10 Essential (primary) hypertension; G99.0 Autonomic neuropathy in diseases classified elsewhere; B96.29 Other Escherichia coli [E. coli] as the cause of diseases classified elsewhere; Z01.810 Encounter for preprocedural cardiovascular examination; Z01.811 Encounter for preprocedural respiratory examination ==

== ENCOUNTER → 2021-12-01 | Outpatient (CLI) | payer BC | LOC: WCC 09:02 | PROVIDERS: ATTEND Podiatrist Foot & Ankle Surgery | DX: E11.621 Type 2 diabetes mellitus with foot ulcer (principal); E11.628 Type 2 diabetes mellitus with other skin complications; M86.171 Other acute osteomyelitis, right ankle and foot; L97.411 Non-pressure chronic ulcer of right heel and midfoot limited to breakdown of skin; L97.516 Non-pressure chronic ulcer of other part of right foot with bone involvement without evidence of necrosis; R60.0 Localized edema; I10 Essential (primary) hypertension; G99.0 Autonomic neuropathy in diseases classified elsewhere; B96.29 Other Escherichia coli [E. coli] as the cause of diseases classified elsewhere; Z01.810 Encounter for preprocedural cardiovascular examination; Z01.811 Encounter for preprocedural respiratory examination ==

== ENCOUNTER → 2021-12-08 | Outpatient (CLI) | payer BC | LOC: WCC 14:16 | PROVIDERS: ATTEND Podiatrist Foot & Ankle Surgery | DX: E11.621 Type 2 diabetes mellitus with foot ulcer (principal); E11.628 Type 2 diabetes mellitus with other skin complications; M86.171 Other acute osteomyelitis, right ankle and foot; L97.411 Non-pressure chronic ulcer of right heel and midfoot limited to breakdown of skin; L97.516 Non-pressure chronic ulcer of other part of right foot with bone involvement without evidence of necrosis; R60.0 Localized edema; I10 Essential (primary) hypertension; G99.0 Autonomic neuropathy in diseases classified elsewhere; Z01.10 Encounter for examination of ears and hearing without abnormal findings; Z01.811 Encounter for preprocedural respiratory examination ==

== ENCOUNTER → 2021-12-22 | Outpatient (CLI) | payer BC | LOC: WCC 13:51 | PROVIDERS: ATTEND Podiatrist Foot & Ankle Surgery | DX: E11.621 Type 2 diabetes mellitus with foot ulcer (principal); E11.628 Type 2 diabetes mellitus with other skin complications; M86.171 Other acute osteomyelitis, right ankle and foot; L97.411 Non-pressure chronic ulcer of right heel and midfoot limited to breakdown of skin; L97.516 Non-pressure chronic ulcer of other part of right foot with bone involvement without evidence of necrosis; R60.0 Localized edema; I10 Essential (primary) hypertension; G99.0 Autonomic neuropathy in diseases classified elsewhere; Z01.810 Encounter for preprocedural cardiovascular examination; Z01.811 Encounter for preprocedural respiratory examination ==

== ENCOUNTER → 2021-12-29 | Outpatient (CLI) | payer BC | LOC: WCC 12:04 | PROVIDERS: ATTEND Podiatrist Foot & Ankle Surgery | DX: E11.621 Type 2 diabetes mellitus with foot ulcer (principal); E11.628 Type 2 diabetes mellitus with other skin complications; M86.171 Other acute osteomyelitis, right ankle and foot; L97.411 Non-pressure chronic ulcer of right heel and midfoot limited to breakdown of skin; L97.516 Non-pressure chronic ulcer of other part of right foot with bone involvement without evidence of necrosis; R60.0 Localized edema; I10 Essential (primary) hypertension; G99.0 Autonomic neuropathy in diseases classified elsewhere; Z01.810 Encounter for preprocedural cardiovascular examination; Z01.811 Encounter for preprocedural respiratory examination ==

== ENCOUNTER → 2022-01-05 | Outpatient (CLI) | payer BC | LOC: WCC 11:49 | PROVIDERS: ATTEND Podiatrist Foot & Ankle Surgery | DX: E11.621 Type 2 diabetes mellitus with foot ulcer (principal); E11.628 Type 2 diabetes mellitus with other skin complications; M86.171 Other acute osteomyelitis, right ankle and foot; L97.416 Non-pressure chronic ulcer of right heel and midfoot with bone involvement without evidence of necrosis; L97.516 Non-pressure chronic ulcer of other part of right foot with bone involvement without evidence of necrosis; R60.0 Localized edema; I10 Essential (primary) hypertension; G99.0 Autonomic neuropathy in diseases classified elsewhere; Z01.810 Encounter for preprocedural cardiovascular examination; Z01.811 Encounter for preprocedural respiratory examination ==

== ENCOUNTER → 2022-01-19 | Outpatient (CLI) | payer BC | LOC: WCC 13:28 | PROVIDERS: ATTEND Podiatrist Foot & Ankle Surgery | DX: E11.621 Type 2 diabetes mellitus with foot ulcer (principal); E11.628 Type 2 diabetes mellitus with other skin complications; M86.171 Other acute osteomyelitis, right ankle and foot; L97.416 Non-pressure chronic ulcer of right heel and midfoot with bone involvement without evidence of necrosis; L97.516 Non-pressure chronic ulcer of other part of right foot with bone involvement without evidence of necrosis; R60.0 Localized edema; I10 Essential (primary) hypertension; G99.0 Autonomic neuropathy in diseases classified elsewhere; Z01.810 Encounter for preprocedural cardiovascular examination; Z01.811 Encounter for preprocedural respiratory examination ==

== ENCOUNTER → 2022-01-26 | Outpatient (CLI) | payer BC | LOC: WCC 13:41 | PROVIDERS: ATTEND Podiatrist Foot & Ankle Surgery | DX: E11.621 Type 2 diabetes mellitus with foot ulcer (principal); E11.628 Type 2 diabetes mellitus with other skin complications; M86.171 Other acute osteomyelitis, right ankle and foot; L97.416 Non-pressure chronic ulcer of right heel and midfoot with bone involvement without evidence of necrosis; L97.516 Non-pressure chronic ulcer of other part of right foot with bone involvement without evidence of necrosis; R60.0 Localized edema; G99.0 Autonomic neuropathy in diseases classified elsewhere; I10 Essential (primary) hypertension; Z01.810 Encounter for preprocedural cardiovascular examination; Z01.811 Encounter for preprocedural respiratory examination ==

== ENCOUNTER 2022-02-15 07:47 | Inpatient (IN) | payer BC ==
[~2022-02-15] VITALS: Ht 188 cm; Wt 141.5 kg
[2022-02-15] MEDS ORDERED: Vancomycin IV 1 GM in SODIUM CHLORIDE 0.9% 250ML 250 ML IV ONE (08:15)
[2022-02-15 08:36] LABS: INR 1.16; PROTHROMBIN TIME 15.8 seconds (11.9-14.5)
[2022-02-15] MEDS ORDERED: SODIUM CHLORIDE 0.9% 1000ML 1,000 ML ONE (08:36)
[2022-02-15 08:37] LABS: PARTIAL THROMBOPLASTIN TIME 37.9 seconds (23.8-35.5)
[2022-02-15 08:42] LABS: ALBUMIN 1.8 g/dL (3.5-5.0); ALBUMIN/GLOBULIN RATIO 0.2 (0.8-2.0); CALCIUM 9.5 mg/dL (8.4-10.2); MAGNESIUM 2.3 MG/DL (1.3-2.1)
[2022-02-15 08:45] LABS: BASOPHILS % 0.2 % (0.0-1.0); EOSINOPHILS # (AUTO) 0.2 (0.0-0.4); HEMATOCRIT 27.1 % (38.2-49.6); HEMOGLOBIN 7.8 g/dL (14.0-18.0); LYMPHOCYTES # (AUTO) 2.2 (1.0-3.2); LYMPHOCYTES % 12.7 % (18.0-39.1); MEAN CORPUSCULAR HEMOGLOBIN 22.8 pg (28-32); MEAN CORPUSCULAR HGB CONC 28.8 g/dL (31-35); MEAN CORPUSCULAR VOLUME 79.2 fL (81-99); MONOCYTES # (AUTO) 1.6 (0.2-0.8); MONOCYTES % 9.1 % (4.4-11.3); NEUTROPHILS # (AUTO) 13.3 (2.1-6.9); NEUTROPHILS % 76.2 % (38.7-80.0); PLATELET COUNT 701 x10e3/uL (140-360); RED BLOOD COUNT 3.42 x10e6/uL (4.3-5.7); RED CELL DISTRIBUTION WIDTH 16.1 % (11.7-14.4)
[2022-02-15 08:48] LABS: CREATINE KINASE MB 0.8 ng/mL (0-5.0)
[2022-02-15 09:53] LABS: CLARITY,URINE CLOUDY (CLEAR); COLOR,URINE YELLOW (YELLOW); LEUKOCYTE ESTERASE ,URINE NEGATIVE (NEGATIVE); NITRITE,URINE NEGATIVE (NEGATIVE); PROTEIN,URINE DIPSTICK >=300 (NEGATIVE)
[2022-02-15 09:54] LABS: KETONES,URINE NEGATIVE (NEGATIVE)
[2022-02-15 10:11] LABS: AMORPHOUS SEDIMENT,URINE MODERATE (FEW); BACTERIA,URINE MANY /HPF; EPITHELIAL CELLS,URINE FEW /LPF; WBC,URINE (MAN) 0-5 /HPF (0-5)
[2022-02-15] MEDS ORDERED: ONDANSETRON HCL INJ 2MG/ML 2ML 2 MG/ML VIAL IV PRN (10:15)
[2022-02-15] MEDS ORDERED: DEXTROSE 50% SYRINGE 50 ML IV PRN (10:30)
[2022-02-15] MEDS: SODIUM CHLORIDE 0.9% 1000ML 1,000 ML IV SCH (10:49)
[2022-02-15] MEDS: INSULIN LISPRO 100 UNIT/1 ML 3ML VIAL SQ SCH ×3 (12:06→21:12)
[2022-02-15 20:05] VITALS: BP 150/63
[2022-02-15 20:45] VITALS: BP 150/63
[2022-02-15] MEDS: ATORVASTATIN 20 MG TAB PO SCH (20:56)
[2022-02-15 21:41] VITALS: BP 146/85
[2022-02-16 01:29] VITALS: BP 100/105
[2022-02-16 06:00] VITALS: BP 141/81
[2022-02-16 06:43] LABS: ALBUMIN 1.6 g/dL (3.5-5.0); ALBUMIN/GLOBULIN RATIO 0.2 (0.8-2.0); ANION GAP 16.9 mmol/L (8-16); CALCIUM 9.2 mg/dL (8.4-10.2); CREATININE, SERUM 2.8 mg/dL (0.72-1.25); POTASSIUM 4.9 mmol/L (3.5-5.1)
[2022-02-16 07:22] LABS: BASOPHILS % 0.2 % (0.0-1.0); EOSINOPHILS # (AUTO) 0.3 (0.0-0.4); EOSINOPHILS % 1.8 % (0.0-6.0); HEMATOCRIT 24.6 % (38.2-49.6); LYMPHOCYTES # (AUTO) 1.5 (1.0-3.2); LYMPHOCYTES % 10.3 % (18.0-39.1); MEAN CORPUSCULAR HEMOGLOBIN 22.6 pg (28-32); MEAN CORPUSCULAR HGB CONC 28.5 g/dL (31-35); MEAN CORPUSCULAR VOLUME 79.4 fL (81-99); MONOCYTES # (AUTO) 1.3 (0.2-0.8); MONOCYTES % 8.8 % (4.4-11.3); NEUTROPHILS # (AUTO) 11.6 (2.1-6.9); PLATELET COUNT 665 x10e3/uL (140-360)
[2022-02-16] MEDS: INSULIN LISPRO 100 UNIT/1 ML 3ML VIAL SQ SCH ×6 (07:30→21:44)
[2022-02-16 08:30] VITALS: BP 156/79
[2022-02-16] MEDS: INSULIN GLARGINE 100 UNITS/ML VIAL SQ SCH (09:00)
[2022-02-16 11:58] VITALS: BP 167/87
[2022-02-16] MEDS ORDERED: FENTANYL CITRATE/PF 100MCG/2 ML INJ ONE (12:45)
[2022-02-16] MEDS ORDERED: MIDAZOLAM HCL 2 MG/2 ML VIAL ONE (12:45)
[2022-02-16 13:43] LABS: FERRITIN 834.08 ng/mL (21.81-274.66)
[2022-02-16] MEDS ORDERED: MUPIROCIN 2% OINT 22 GM TUBE ONE (14:18)
[2022-02-16] MEDS ORDERED: BUPIVACAINE HCL 0.5% INJ 30 ML VIAL INJ ONE (14:18)
[2022-02-16] MEDS ORDERED: Vancomycin IV 1 GM VIAL ONE (14:20)
[2022-02-16] MEDS: CEFTRIAXONE 2 GM in SODIUM CHLORIDE 0.9% 100 ML IV SCH (16:00)
[2022-02-16] MEDS ORDERED: HYDRALAZINE HCL 20 MG/ML VIAL IV PRN (17:15)
[2022-02-16] MEDS: SITAGLIPTIN 100 MG TAB PO SCH (17:19)
[2022-02-16] MEDS: TAMSULOSIN HCL 0.4 MG CAP PO SCH (17:19)
[2022-02-16] MEDS: GABAPENTIN 300 MG CAP PO SCH ×2 (17:20→17:22)
[2022-02-16] MEDS: ALLOPURINOL 300 MG TAB PO SCH (17:20)
[2022-02-16] MEDS: Morphine 2mg Syringe 2 MG/ML SYR IV PRN (17:58)
[2022-02-16] MEDS: AMLODIPINE BESYLATE 10 MG TAB PO SCH (17:58)
[2022-02-16] MEDS: DAPTOMYCIN 500mg 10ML 500 MG in SODIUM CHLORIDE 0.9% 100 ML IV SCH (18:00)
[2022-02-16] MEDS ORDERED: LIDOCAINE HCL 2% LOCAL INJ 5 ML SDV VIAL INJ ONE (19:13)
[2022-02-16] MEDS ORDERED: ONDANSETRON HCL INJ 2MG/ML 2ML 2 MG/ML VIAL ONE (19:13)
[2022-02-16] MEDS ORDERED: POVIDONE IODINE 0.05% 0.05 % ML PO ONE (19:13)
[2022-02-16] MEDS ORDERED: PROPOFOL IV EMULSION 10 MG/ML 20 ML VIAL ONE (19:13)
[2022-02-16] MEDS ORDERED: SEVOFLURANE INHAL SOLN 250 ML PEN BTL ONE (19:13)
[2022-02-16] MEDS ORDERED: PHENYLEPHRINE HCL 1% 10 MG/ML VIAL ONE (19:13)
[2022-02-16] MEDS ORDERED: DEXAMETHASONE SOD PHOS INJ 4 MG/ML SDV ONE (19:13)
[2022-02-16] MEDS: IRON SUCROSE 100 MG in SODIUM CHLORIDE 0.9% 100 ML IV SCH (21:35)
[2022-02-16] MEDS: ATORVASTATIN 20 MG TAB PO SCH (21:36)
[2022-02-16] MEDS: SODIUM CHLORIDE 0.9% 1000ML 1,000 ML IV SCH (21:36)
[2022-02-16 22:37] VITALS: BP 135/81
[2022-02-17] VITALS (7 sets, daily range): BP systolic 142–176; BP diastolic 78–94
[2022-02-17] MEDS: SODIUM CHLORIDE 0.9% 1000ML 1,000 ML IV SCH (02:15)
[2022-02-17 05:57] LABS: BASOPHILS % 0.1 % (0.0-1.0); EOSINOPHILS % 0.1 % (0.0-6.0); HEMATOCRIT 22.9 % (38.2-49.6); HEMOGLOBIN 6.8 g/dL (14.0-18.0); LYMPHOCYTES # (AUTO) 1.2 (1.0-3.2); LYMPHOCYTES % 7.4 % (18.0-39.1); MEAN CORPUSCULAR HEMOGLOBIN 22.7 pg (28-32); MEAN CORPUSCULAR HGB CONC 29.7 g/dL (31-35); MEAN CORPUSCULAR VOLUME 76.6 fL (81-99); MONOCYTES # (AUTO) 1.1 (0.2-0.8); NEUTROPHILS # (AUTO) 13.5 (2.1-6.9); NEUTROPHILS % 84.5 % (38.7-80.0); PLATELET COUNT 702 x10e3/uL (140-360); RED BLOOD COUNT 2.99 x10e6/uL (4.3-5.7); RED CELL DISTRIBUTION WIDTH 15.9 % (11.7-14.4)
[2022-02-17 06:39] LABS: ALBUMIN 1.5 g/dL (3.5-5.0); ALBUMIN/GLOBULIN RATIO 0.2 (0.8-2.0); ANION GAP 15.4 mmol/L (8-16); CALCIUM 9.5 mg/dL (8.4-10.2); CREATININE, SERUM 2.43 mg/dL (0.72-1.25); POTASSIUM 5.4 mmol/L (3.5-5.1)
[2022-02-17 07:32] LABS: HIV 1&2 AB SCREEN ***REACTIVE*** (NONREACTIVE)
[2022-02-17] MEDS: INSULIN GLARGINE 100 UNITS/ML VIAL SQ SCH (08:30)
[2022-02-17] MEDS: INSULIN LISPRO 100 UNIT/1 ML 3ML VIAL SQ SCH ×7 (08:30→20:17)
[2022-02-17] MEDS ORDERED: LACTULOSE SYRUP 20 GM/30 ML UDC PO ONE (08:30)
[2022-02-17] MEDS ORDERED: SOD POLYSTYRENE SULFONATE SUSP 15 GM/60 ML BTL PO ONE (08:30)
[2022-02-17] MEDS: AMLODIPINE BESYLATE 10 MG TAB PO SCH (08:30)
[2022-02-17] MEDS: GABAPENTIN 300 MG CAP PO SCH ×2 (08:31→17:05)
[2022-02-17] MEDS: SITAGLIPTIN 100 MG TAB PO SCH (08:31)
[2022-02-17] MEDS: TAMSULOSIN HCL 0.4 MG CAP PO SCH (08:32)
[2022-02-17] MEDS: ALLOPURINOL 300 MG TAB PO SCH (08:32)
[2022-02-17] MEDS ORDERED: SODIUM CHLORIDE 0.9% 250ML 250 ML IV ONE (08:35)
[2022-02-17] MEDS: CEFTRIAXONE 2 GM in SODIUM CHLORIDE 0.9% 100 ML IV SCH (08:36)
[2022-02-17] MEDS ORDERED: ONDANSETRON HCL 4 MG ORAL DISINTEGRATING TAB PO PRN (15:45)
[2022-02-17] MEDS ORDERED: SODIUM CHLORIDE 0.9% 250ML 250 ML ONE (16:47)
[2022-02-17] MEDS ORDERED: ACETAMINOPHEN 325 MG TAB PO PRN (18:15)
[2022-02-17] MEDS: IRON SUCROSE 100 MG in SODIUM CHLORIDE 0.9% 100 ML IV SCH (20:06)
[2022-02-17] MEDS: ATORVASTATIN 20 MG TAB PO SCH (20:06)
[2022-02-17] MEDS: ZOLPIDEM TARTRATE 5 MG TAB PO PRN (22:10)
[2022-02-18] VITALS (7 sets, daily range): BP systolic 144–165; BP diastolic 74–95
[2022-02-18 07:36] LABS: BASOPHILS % 0.2 % (0.0-1.0); EOSINOPHILS # (AUTO) 0.4 (0.0-0.4); EOSINOPHILS % 2.8 % (0.0-6.0); HEMATOCRIT 26.6 % (38.2-49.6); HEMOGLOBIN 7.5 g/dL (14.0-18.0); LYMPHOCYTES # (AUTO) 1.6 (1.0-3.2); LYMPHOCYTES % 12.9 % (18.0-39.1); MEAN CORPUSCULAR HEMOGLOBIN 23.1 pg (28-32); MEAN CORPUSCULAR HGB CONC 28.2 g/dL (31-35); MEAN CORPUSCULAR VOLUME 82.1 fL (81-99); MONOCYTES % 8.3 % (4.4-11.3); NEUTROPHILS # (AUTO) 9.5 (2.1-6.9); NEUTROPHILS % 75.1 % (38.7-80.0); PLATELET COUNT 765 x10e3/uL (140-360); RED BLOOD COUNT 3.24 x10e6/uL (4.3-5.7); RED CELL DISTRIBUTION WIDTH 16.1 % (11.7-14.4)
[2022-02-18 07:57] LABS: ANION GAP 16.7 mmol/L (8-16); CALCIUM 9.5 mg/dL (8.4-10.2); CREATININE, SERUM 1.91 mg/dL (0.72-1.25); POTASSIUM 4.7 mmol/L (3.5-5.1)
[2022-02-18] MEDS: INSULIN LISPRO 100 UNIT/1 ML 3ML VIAL SQ SCH ×7 (08:30→20:25)
[2022-02-18] MEDS: CEFTRIAXONE 2 GM in SODIUM CHLORIDE 0.9% 100 ML IV SCH (08:59)
[2022-02-18] MEDS: GABAPENTIN 300 MG CAP PO SCH ×2 (09:00→17:48)
[2022-02-18] MEDS: TAMSULOSIN HCL 0.4 MG CAP PO SCH (09:00)
[2022-02-18] MEDS: SITAGLIPTIN 100 MG TAB PO SCH (09:00)
[2022-02-18] MEDS: AMLODIPINE BESYLATE 10 MG TAB PO SCH (09:00)
[2022-02-18] MEDS: ALLOPURINOL 300 MG TAB PO SCH (09:06)
[2022-02-18] MEDS: INSULIN GLARGINE 100 UNITS/ML VIAL SQ SCH (09:07)
[2022-02-18] MEDS: IRON SUCROSE 100 MG in SODIUM CHLORIDE 0.9% 100 ML IV SCH ×2 (15:43→18:20)
[2022-02-18] MEDS ORDERED: ALTEPLASE RECOMBINANT 2 MG/2 ML VIAL IV PRN (16:15)
[2022-02-18] MEDS: ENALAPRIL MALEATE 10 MG TAB PO SCH (17:48)
[2022-02-18] MEDS: DAPTOMYCIN 500mg 10ML 500 MG in SODIUM CHLORIDE 0.9% 100 ML IV SCH (20:19)
[2022-02-18] MEDS: ATORVASTATIN 20 MG TAB PO SCH (20:21)
[2022-02-18] MEDS: ZOLPIDEM TARTRATE 5 MG TAB PO PRN (20:21)
[2022-02-18] MEDS: Morphine 2mg Syringe 2 MG/ML SYR IV PRN (21:10)
[2022-02-19] VITALS (8 sets, daily range): BP systolic 144–171; BP diastolic 82–94
[2022-02-19] MEDS ORDERED: FOLIC ACID 1 MG TAB PO ONE
[2022-02-19] MEDS ORDERED: BISACODYL 5 MG TAB EC PO ONE ×2 (00:30)
[2022-02-19] MEDS: FOLIC ACID 1 MG TAB PO SCH (08:17)
[2022-02-19] MEDS: GABAPENTIN 300 MG CAP PO SCH ×2 (08:17→16:15)
[2022-02-19] MEDS: SITAGLIPTIN 100 MG TAB PO SCH (08:18)
[2022-02-19] MEDS: ENALAPRIL MALEATE 10 MG TAB PO SCH ×2 (08:18→16:17)
[2022-02-19] MEDS: TAMSULOSIN HCL 0.4 MG CAP PO SCH (08:18)
[2022-02-19] MEDS: CEFTRIAXONE 2 GM in SODIUM CHLORIDE 0.9% 100 ML IV SCH (08:18)
[2022-02-19] MEDS: ALLOPURINOL 300 MG TAB PO SCH (08:18)
[2022-02-19] MEDS: INSULIN LISPRO 100 UNIT/1 ML 3ML VIAL SQ SCH ×7 (08:20→20:57)
[2022-02-19] MEDS: INSULIN GLARGINE 100 UNITS/ML VIAL SQ SCH (08:30)
[2022-02-19] MEDS: IRON SUCROSE 100 MG in SODIUM CHLORIDE 0.9% 100 ML IV SCH (14:08)
[2022-02-19] MEDS: ATORVASTATIN 20 MG TAB PO SCH ×2 (20:58→23:48)
[2022-02-19] MEDS: ZOLPIDEM TARTRATE 5 MG TAB PO PRN (23:48)
[2022-02-20] VITALS (7 sets, daily range): BP systolic 124–167; BP diastolic 83–98
[2022-02-20 07:00] LABS: HEMATOCRIT 26.6 % (38.2-49.6); HEMOGLOBIN 7.5 g/dL (14.0-18.0)
[2022-02-20 07:49] LABS: ANION GAP 14.6 mmol/L (8-16); CALCIUM 10.3 mg/dL (8.4-10.2); CREATININE, SERUM 1.68 mg/dL (0.72-1.25); POTASSIUM 4.6 mmol/L (3.5-5.1)
[2022-02-20] MEDS: INSULIN LISPRO 100 UNIT/1 ML 3ML VIAL SQ SCH ×4 (08:40→11:50)
[2022-02-20] MEDS ORDERED: FUROSEMIDE 20 MG TAB PO SCH (09:00)
[2022-02-20] MEDS: CEFTRIAXONE 2 GM in SODIUM CHLORIDE 0.9% 100 ML IV SCH (09:10)
[2022-02-20] MEDS: TAMSULOSIN HCL 0.4 MG CAP PO SCH (09:11)
[2022-02-20] MEDS: SITAGLIPTIN 100 MG TAB PO SCH (09:11)
[2022-02-20] MEDS: FOLIC ACID 1 MG TAB PO SCH (09:11)
[2022-02-20] MEDS: ENALAPRIL MALEATE 10 MG TAB PO SCH (09:12)
[2022-02-20] MEDS: GABAPENTIN 300 MG CAP PO SCH (09:12)
[2022-02-20] MEDS: ALLOPURINOL 300 MG TAB PO SCH (09:12)
[2022-02-20] MEDS: INSULIN GLARGINE 100 UNITS/ML VIAL SQ SCH (09:55)
[2022-02-20] MEDS: IRON SUCROSE 100 MG in SODIUM CHLORIDE 0.9% 100 ML IV SCH (11:49)
[2022-02-20] MEDS ORDERED: DAPTOMYCIN 500mg 10ML 500 MG in SODIUM CHLORIDE 0.9% 100 ML IV ONE (13:00)
[2022-02-20] MEDS: DAPTOMYCIN 500mg 10ML 500 MG in SODIUM CHLORIDE 0.9% 100 ML IV SCH (13:49)
[2022-03-02] MEDS ORDERED: AMLODIPINE BESYL5 MG PO (07:33)
== END 2022-02-20 16:26 | disposition home or self-care (01) | DRG 853 ==
LOC: ER 07:51 → ERHOLD 10:06 → MED/SURG3 18:15
PROVIDERS: ADMIT Family Medicine; ATTEND Family Medicine
PROC: 0J9Q0ZZ Drainage of Right Foot Subcutaneous Tissue and Fascia, Open Approach (ICD-10-PCS; 2022-02-16)
PROC: 02HV33Z Insertion of Infusion Device into Superior Vena Cava, Percutaneous Approach (ICD-10-PCS; 2022-02-16)
PROC: 05HY33Z Insertion of Infusion Device into Upper Vein, Percutaneous Approach (ICD-10-PCS; 2022-02-16)
PROC: 0QBN0ZZ Excision of Right Metatarsal, Open Approach (ICD-10-PCS; principal; 2022-02-16 14:51)
PROC: 30243N1 Transfusion of Nonautologous Red Blood Cells into Central Vein, Percutaneous Approach (ICD-10-PCS; 2022-02-17)
DX: A41.01 Sepsis due to Methicillin susceptible Staphylococcus aureus (principal); N17.0 Acute kidney failure with tubular necrosis; L97.416 Non-pressure chronic ulcer of right heel and midfoot with bone involvement without evidence of necrosis; M86.8X7 Other osteomyelitis, ankle and foot; Z68.41 Body mass index [BMI] 40.0-44.9, adult; L03.116 Cellulitis of left lower limb; L03.115 Cellulitis of right lower limb; E11.69 Type 2 diabetes mellitus with other specified complication; A41.52 Sepsis due to Pseudomonas; R65.20 Severe sepsis without septic shock; E11.621 Type 2 diabetes mellitus with foot ulcer; E11.65 Type 2 diabetes mellitus with hyperglycemia; Z79.4 Long term (current) use of insulin; E11.51 Type 2 diabetes mellitus with diabetic peripheral angiopathy without gangrene; E11.40 Type 2 diabetes mellitus with diabetic neuropathy, unspecified; B95.61 Methicillin susceptible Staphylococcus aureus infection as the cause of diseases classified elsewhere; B96.5 Pseudomonas (aeruginosa) (mallei) (pseudomallei) as the cause of diseases classified elsewhere; E11.22 Type 2 diabetes mellitus with diabetic chronic kidney disease; I12.9 Hypertensive chronic kidney disease with stage 1 through stage 4 chronic kidney disease, or unspecified chronic kidney disease; N18.32 Chronic kidney disease, stage 3b; E66.01 Morbid (severe) obesity due to excess calories; D50.9 Iron deficiency anemia, unspecified; E78.5 Hyperlipidemia, unspecified; E11.628 Type 2 diabetes mellitus with other skin complications; Z89.421 Acquired absence of other right toe(s); R75 Inconclusive laboratory evidence of human immunodeficiency virus [HIV]
CPT/HCPCS: 36415; 36569; 71045; 74176; 76770; 80048; 80053; 81001; 82550; 82553; 82607; 82728; 82746; 82948; 83036; 83540; 83605; 83735; 84165; 84466; 84484; 85014; 85018; 85025; 85045; 85610; 85651; 85730; 86039; 86140; 86160; 86431; 86689; 86850; 86900; 86920; 87040; 87071; 87075; 87086; 87186; 87205; 87390; 87535; 88304; 88311; 93005; 93306; 93925; 94799; 96360; 96372; 97605; 97606; 99251; 99284; 99285; C1713; G0433; G0435; J0360; J0696; J1100; J1756; J1815; J2001; J2250; J2270; J2370; J2405; J2543; J2997; J3010; J3370; J7030; J7050; P9016

== ENCOUNTER → 2022-02-23 | Outpatient (CLI) | payer BC | LOC: WCC 11:44 | PROVIDERS: ATTEND Podiatrist Foot & Ankle Surgery | DX: E11.621 Type 2 diabetes mellitus with foot ulcer (principal); E11.628 Type 2 diabetes mellitus with other skin complications; Y83.4 Other reconstructive surgery as the cause of abnormal reaction of the patient, or of later complication, without mention of misadventure at the time of the procedure; M86.171 Other acute osteomyelitis, right ankle and foot; L97.516 Non-pressure chronic ulcer of other part of right foot with bone involvement without evidence of necrosis; L97.416 Non-pressure chronic ulcer of right heel and midfoot with bone involvement without evidence of necrosis; S91.301A Unspecified open wound, right foot, initial encounter; R60.0 Localized edema; I10 Essential (primary) hypertension; G99.0 Autonomic neuropathy in diseases classified elsewhere; Z01.810 Encounter for preprocedural cardiovascular examination; Z01.811 Encounter for preprocedural respiratory examination ==

== ENCOUNTER → 2022-02-26 | Outpatient (CLI) | payer BC ==
[~2022-02-26] MED LIST changes: +AMLODIPINE BESYL5 MG PO
== END ==
LOC: WCC 15:36
PROVIDERS: ATTEND Family Medicine Adult Medicine
DX: E11.621 Type 2 diabetes mellitus with foot ulcer (principal); Y83.4 Other reconstructive surgery as the cause of abnormal reaction of the patient, or of later complication, without mention of misadventure at the time of the procedure; M86.171 Other acute osteomyelitis, right ankle and foot; S91.301A Unspecified open wound, right foot, initial encounter; L97.516 Non-pressure chronic ulcer of other part of right foot with bone involvement without evidence of necrosis; R60.0 Localized edema; I10 Essential (primary) hypertension; G99.0 Autonomic neuropathy in diseases classified elsewhere; Z01.810 Encounter for preprocedural cardiovascular examination; Z01.811 Encounter for preprocedural respiratory examination

== ENCOUNTER → 2022-03-02 | Outpatient (CLI) | payer BC ==
[~2022-03-02] MED LIST changes: +GABAPENTIN600 MG PO
== END ==
LOC: WCC 10:19
PROVIDERS: ATTEND Podiatrist Foot & Ankle Surgery
DX: E11.621 Type 2 diabetes mellitus with foot ulcer (principal); E11.628 Type 2 diabetes mellitus with other skin complications; Y83.4 Other reconstructive surgery as the cause of abnormal reaction of the patient, or of later complication, without mention of misadventure at the time of the procedure; M86.171 Other acute osteomyelitis, right ankle and foot; S91.301A Unspecified open wound, right foot, initial encounter; L97.516 Non-pressure chronic ulcer of other part of right foot with bone involvement without evidence of necrosis; R60.0 Localized edema; I10 Essential (primary) hypertension; G99.0 Autonomic neuropathy in diseases classified elsewhere; Z01.811 Encounter for preprocedural respiratory examination

== ENCOUNTER → 2022-03-05 | Outpatient (CLI) | payer BC | LOC: WCC 09:17 | PROVIDERS: ATTEND Podiatrist Foot & Ankle Surgery | DX: E11.621 Type 2 diabetes mellitus with foot ulcer (principal); E11.628 Type 2 diabetes mellitus with other skin complications; Y83.4 Other reconstructive surgery as the cause of abnormal reaction of the patient, or of later complication, without mention of misadventure at the time of the procedure; M86.171 Other acute osteomyelitis, right ankle and foot; L97.516 Non-pressure chronic ulcer of other part of right foot with bone involvement without evidence of necrosis; S91.301A Unspecified open wound, right foot, initial encounter; R60.0 Localized edema; I10 Essential (primary) hypertension; G99.0 Autonomic neuropathy in diseases classified elsewhere; Z01.810 Encounter for preprocedural cardiovascular examination; Z01.811 Encounter for preprocedural respiratory examination ==

== ENCOUNTER 2022-03-09 09:01 | Inpatient (IN) | payer BC ==
[~2022-03-09] VITALS: Ht 188 cm; Wt 138.5 kg
[~2022-03-09 09:01] MED LIST changes: -GABAPENTIN600 MG PO
[2022-03-09] MEDS ORDERED: Vancomycin IV 1 GM in SODIUM CHLORIDE 0.9% 250ML 250 ML IV STA (09:18)
[2022-03-09] MEDS ORDERED: SODIUM CHLORIDE 0.9% 1000ML 1,000 ML IV ONE ×2 (09:30→11:15)
[2022-03-09 09:46] LABS: BASOPHILS % 0.2 % (0.0-1.0); EOSINOPHILS # (AUTO) 0.2 (0.0-0.4); EOSINOPHILS % 2.6 % (0.0-6.0); HEMOGLOBIN 7.1 g/dL (14.0-18.0); LYMPHOCYTES # (AUTO) 1.5 (1.0-3.2); LYMPHOCYTES % 17.2 % (18.0-39.1); MEAN CORPUSCULAR HEMOGLOBIN 23.1 pg (28-32); MEAN CORPUSCULAR HGB CONC 28.4 g/dL (31-35); MEAN CORPUSCULAR VOLUME 81.4 fL (81-99); MONOCYTES # (AUTO) 0.7 (0.2-0.8); MONOCYTES % 8.2 % (4.4-11.3); NEUTROPHILS # (AUTO) 6.3 (2.1-6.9); NEUTROPHILS % 71.6 % (38.7-80.0); PLATELET COUNT 601 x10e3/uL (140-360); RED BLOOD COUNT 3.07 x10e6/uL (4.3-5.7); RED CELL DISTRIBUTION WIDTH 16.8 % (11.7-14.4)
[2022-03-09] MEDS ORDERED: ACETAMINOPHEN/CODEINE 300MG - 30MG TAB PO ONE (10:00)
[2022-03-09 10:02] LABS: INR 1.23; PROTHROMBIN TIME 15.7 seconds (11.9-14.5)
[2022-03-09 10:03] LABS: PARTIAL THROMBOPLASTIN TIME 37.2 seconds (23.8-35.5)
[2022-03-09 10:14] LABS: ALBUMIN/GLOBULIN RATIO 0.4 (0.8-2.0); CALCIUM 9.9 mg/dL (8.4-10.2); CREATININE, SERUM 2.93 mg/dL (0.72-1.25)
[2022-03-09] MEDS ORDERED: ONDANSETRON HCL INJ 2MG/ML 2ML 2 MG/ML VIAL IV PRN ×2 (11:45→13:30)
[2022-03-09 12:06] LABS: CLARITY,URINE CLEAR (CLEAR); COLOR,URINE YELLOW (YELLOW); KETONES,URINE NEGATIVE (NEGATIVE); LEUKOCYTE ESTERASE ,URINE NEGATIVE (NEGATIVE); NITRITE,URINE NEGATIVE (NEGATIVE); PROTEIN,URINE DIPSTICK >=300 (NEGATIVE); URINE UROBILINOGEN 0.2 mg/dL (0.2 - 1)
[2022-03-09 12:23] LABS: AMORPHOUS SEDIMENT,URINE FEW (FEW); BACTERIA,URINE MODERATE /HPF; EPITHELIAL CELLS,URINE FEW /LPF; HYALINE CASTS 0-1 (0-1); RBC,URINE 0-5 /HPF (0-5); WBC,URINE (MAN) 0-5 /HPF (0-5)
[2022-03-09] MEDS ORDERED: BENZONATATE 100 MG CAP PO PRN (13:30)
[2022-03-09] MEDS ORDERED: ACETAMINOPHEN 325 MG TAB PO PRN (13:30)
[2022-03-09] MEDS ORDERED: LIDOCAINE 4% PATCH TP PRN (13:30)
[2022-03-09] MEDS ORDERED: ALBUTEROL/IPRATROPIUM 3 ML NEB NEB PRN (13:30)
[2022-03-09] MEDS ORDERED: MELATONIN 5 MG TABLET PO PRN (13:30)
[2022-03-09] MEDS ORDERED: DOCUSATE SODIUM 100 MG CAP PO PRN (13:30)
[2022-03-09] MEDS ORDERED: DEXTROSE 50% SYRINGE 50 ML IV PRN ×3 (13:30→14:30)
[2022-03-09] MEDS ORDERED: SIMETHICONE 80 MG CHEW PO PRN (13:30)
[2022-03-09] MEDS ORDERED: HYDROCODONE/APAP 5MG-325MG TAB PO PRN (13:30)
[2022-03-09] MEDS ORDERED: DIPHENHYDRAMINE HCL 25 MG CAP PO PRN (13:30)
[2022-03-09] MEDS ORDERED: HYDRALAZINE HCL 20 MG/ML VIAL IV PRN (13:30)
[2022-03-09] MEDS ORDERED: POTASSIUM CHLORIDE 20 MEQ TAB CR PO PRN (13:30)
[2022-03-09] MEDS ORDERED: SODIUM CHLORIDE 0.9% 250ML 250 ML IV ONE (13:45)
[2022-03-09] MEDS ORDERED: GABAPENTIN600 MG PO (13:57)
[2022-03-09 14:12] VITALS: BP 166/84
[2022-03-09 14:16] VITALS: BP 166/84
[2022-03-09] MEDS: SODIUM CHLORIDE 0.9% 1000ML 1,000 ML IV SCH ×2 (14:46→18:25)
[2022-03-09] MEDS ORDERED: HUMALOG SQ SCH (15:00)
[2022-03-09 15:51] VITALS: BP 166/84
[2022-03-09] MEDS: INSULIN LISPRO 100 UNIT/1 ML 3ML VIAL SQ SCH ×3 (16:27→20:54)
[2022-03-09] MEDS: ENOXAPARIN SOD INJ 40 MG/0.4 ML SYR SC SCH (16:27)
[2022-03-09] MEDS ORDERED: INSULIN LISPRO 100 UNIT/1 ML 3ML VIAL SQ SCH (16:30)
[2022-03-09] MEDS: LEVOFLOXACIN 750MG/D5W 150ML 150 ML IV SCH (16:33)
[2022-03-09] MEDS ORDERED: SODIUM CHLORIDE 0.9% 250ML 250 ML ONE (16:37)
[2022-03-09 20:00] VITALS: BP 122/74
[2022-03-09] MEDS: ATORVASTATIN 20 MG TAB PO SCH (20:55)
[2022-03-09] MEDS ORDERED: HEPARIN SOD (PORCINE) 5,000 UNIT/ML VIAL SC SCH (21:00)
[2022-03-10] VITALS (8 sets, daily range): BP systolic 137–173; BP diastolic 80–94
[2022-03-10] MEDS: SODIUM CHLORIDE 0.9% 1000ML 1,000 ML IV SCH ×4 (02:16→21:07)
[2022-03-10 06:16] LABS: BASOPHILS % 0.4 % (0.0-1.0); EOSINOPHILS # (AUTO) 0.4 (0.0-0.4); EOSINOPHILS % 5.9 % (0.0-6.0); HEMATOCRIT 26.9 % (38.2-49.6); HEMOGLOBIN 7.8 g/dL (14.0-18.0); LYMPHOCYTES # (AUTO) 1.3 (1.0-3.2); LYMPHOCYTES % 18.6 % (18.0-39.1); MEAN CORPUSCULAR HEMOGLOBIN 24.4 pg (28-32); MEAN CORPUSCULAR VOLUME 84.1 fL (81-99); MONOCYTES # (AUTO) 0.8 (0.2-0.8); MONOCYTES % 11.1 % (4.4-11.3); NEUTROPHILS # (AUTO) 4.3 (2.1-6.9); NEUTROPHILS % 63.7 % (38.7-80.0); PLATELET COUNT 534 x10e3/uL (140-360); RED CELL DISTRIBUTION WIDTH 16.9 % (11.7-14.4)
[2022-03-10 06:37] LABS: ALBUMIN 2.6 g/dL (3.5-5.0); ALBUMIN/GLOBULIN RATIO 0.4 (0.8-2.0); ANION GAP 16.3 mmol/L (8-16); CALCIUM 9.6 mg/dL (8.4-10.2); CREATININE, SERUM 2.01 mg/dL (0.72-1.25); POTASSIUM 5.3 mmol/L (3.5-5.1)
[2022-03-10 07:04] LABS: CHOL/HDL RATIO 5.2 (3.9-4.7); MAGNESIUM 1.8 MG/DL (1.3-2.1)
[2022-03-10 07:16] LABS: THYROID STIMULATING HORMONE 1.349 uIU/mL (0.350-4.940)
[2022-03-10] MEDS: INSULIN LISPRO 100 UNIT/1 ML 3ML VIAL SQ SCH ×7 (07:30→21:00)
[2022-03-10] MEDS: ALLOPURINOL 300 MG TAB PO SCH (08:57)
[2022-03-10] MEDS: TAMSULOSIN HCL 0.4 MG CAP PO SCH (08:57)
[2022-03-10] MEDS: AMLODIPINE BESYLATE 5 MG TAB PO SCH (08:57)
[2022-03-10] MEDS: SITAGLIPTIN 100 MG TAB PO SCH (08:57)
[2022-03-10] MEDS: PANTOPRAZOLE SOD 40 MG TABEC PO SCH (08:57)
[2022-03-10] MEDS ORDERED: LANTUS SQ SCH (09:00)
[2022-03-10] MEDS: INSULIN GLARGINE 100 UNITS/ML VIAL SQ SCH (09:02)
[2022-03-10] MEDS ORDERED: Vancomycin IV 1 GM in SODIUM CHLORIDE 0.9% 250ML 250 ML IV SCH (10:00)
[2022-03-10] MEDS ORDERED: FUROSEMIDE INJ 10 MG/ML 4 ML VIAL IV ONE (11:30)
[2022-03-10] MEDS ORDERED: SODIUM HYPOCHLORITE 0.5% 480 ML BTL IR ONE (12:15)
[2022-03-10] MEDS: ENOXAPARIN SOD INJ 40 MG/0.4 ML SYR SC SCH (17:10)
[2022-03-10] MEDS: ATORVASTATIN 20 MG TAB PO SCH (21:08)
[2022-03-11] VITALS (13 sets, daily range): BP systolic 140–177; BP diastolic 82–99
[2022-03-11] MEDS: SODIUM CHLORIDE 0.9% 1000ML 1,000 ML IV SCH (05:33)
[2022-03-11] MEDS: INSULIN LISPRO 100 UNIT/1 ML 3ML VIAL SQ SCH ×7 (07:30→21:09)
[2022-03-11] MEDS ORDERED: BENZOCAINE 20% SPR 60 ML CAN ONE (11:55)
[2022-03-11] MEDS ORDERED: SODIUM CHLORIDE 0.9% 1000ML 1,000 ML ONE (11:55)
[2022-03-11] MEDS ORDERED: FENTANYL CITRATE/PF 100MCG/2 ML INJ ONE (13:47)
[2022-03-11] MEDS: PANTOPRAZOLE SOD 40 MG TABEC PO SCH (14:42)
[2022-03-11] MEDS: ALLOPURINOL 300 MG TAB PO SCH (14:42)
[2022-03-11] MEDS: TAMSULOSIN HCL 0.4 MG CAP PO SCH (14:42)
[2022-03-11] MEDS: AMLODIPINE BESYLATE 5 MG TAB PO SCH (14:43)
[2022-03-11] MEDS: SITAGLIPTIN 100 MG TAB PO SCH (14:43)
[2022-03-11] MEDS: INSULIN GLARGINE 100 UNITS/ML VIAL SQ SCH (14:49)
[2022-03-11 15:16] LABS: ANION GAP 13.8 mmol/L (8-16); CALCIUM 9.3 mg/dL (8.4-10.2); CREATININE, SERUM 1.68 mg/dL (0.72-1.25); POTASSIUM 4.8 mmol/L (3.5-5.1)
[2022-03-11] MEDS ORDERED: LIDOCAINE HCL 2% LOCAL INJ 5 ML SDV VIAL INJ ONE (15:48)
[2022-03-11] MEDS ORDERED: PROPOFOL IV EMULSION 10 MG/ML 20 ML VIAL ONE (15:48)
[2022-03-11] MEDS: LEVOFLOXACIN 750MG/D5W 150ML 150 ML IV SCH (17:05)
[2022-03-11] MEDS: ENOXAPARIN SOD INJ 40 MG/0.4 ML SYR SC SCH (17:05)
[2022-03-11] MEDS: ATORVASTATIN 20 MG TAB PO SCH (20:56)
[2022-03-12 05:49] LABS: BASOPHILS % 0.4 % (0.0-1.0); EOSINOPHILS # (AUTO) 0.2 (0.0-0.4); EOSINOPHILS % 2.8 % (0.0-6.0); HEMOGLOBIN 8.2 g/dL (14.0-18.0); LYMPHOCYTES # (AUTO) 1.4 (1.0-3.2); LYMPHOCYTES % 19.2 % (18.0-39.1); MEAN CORPUSCULAR HEMOGLOBIN 24.1 pg (28-32); MEAN CORPUSCULAR HGB CONC 28.3 g/dL (31-35); MEAN CORPUSCULAR VOLUME 85.3 fL (81-99); MONOCYTES # (AUTO) 0.7 (0.2-0.8); MONOCYTES % 9.1 % (4.4-11.3); NEUTROPHILS # (AUTO) 4.9 (2.1-6.9); NEUTROPHILS % 68.4 % (38.7-80.0); PLATELET COUNT 561 x10e3/uL (140-360); RED CELL DISTRIBUTION WIDTH 17.4 % (11.7-14.4)
[2022-03-12 06:28] LABS: ANION GAP 13.5 mmol/L (8-16); CALCIUM 9.1 mg/dL (8.4-10.2); CREATININE, SERUM 1.74 mg/dL (0.72-1.25); POTASSIUM 4.5 mmol/L (3.5-5.1)
[2022-03-12] MEDS: INSULIN LISPRO 100 UNIT/1 ML 3ML VIAL SQ SCH ×7 (07:30→21:00)
[2022-03-12 07:52] VITALS: BP 151/81
[2022-03-12 07:53] VITALS: BP 151/81
[2022-03-12] MEDS: AMLODIPINE BESYLATE 5 MG TAB PO SCH (08:28)
[2022-03-12] MEDS: TAMSULOSIN HCL 0.4 MG CAP PO SCH (08:28)
[2022-03-12] MEDS: ALLOPURINOL 300 MG TAB PO SCH (08:28)
[2022-03-12] MEDS: PANTOPRAZOLE SOD 40 MG TABEC PO SCH (08:29)
[2022-03-12] MEDS: SITAGLIPTIN 100 MG TAB PO SCH (08:29)
[2022-03-12] MEDS: INSULIN GLARGINE 100 UNITS/ML VIAL SQ SCH (09:00)
[2022-03-12 11:53] VITALS: BP 156/90
[2022-03-12 15:24] VITALS: BP 158/94
[2022-03-12] MEDS: ENOXAPARIN SOD INJ 40 MG/0.4 ML SYR SC SCH (16:34)
[2022-03-12 20:00] VITALS: BP 112/76
[2022-03-12] MEDS: ATORVASTATIN 20 MG TAB PO SCH (21:24)
[2022-03-13] MEDS: INSULIN LISPRO 100 UNIT/1 ML 3ML VIAL SQ SCH ×7 (07:30→21:00)
[2022-03-13 07:40] VITALS: BP 146/87
[2022-03-13 08:19] VITALS: BP 146/87
[2022-03-13] MEDS: INSULIN GLARGINE 100 UNITS/ML VIAL SQ SCH (09:00)
[2022-03-13] MEDS: TAMSULOSIN HCL 0.4 MG CAP PO SCH (09:00)
[2022-03-13] MEDS: AMLODIPINE BESYLATE 5 MG TAB PO SCH (09:00)
[2022-03-13] MEDS: ALLOPURINOL 300 MG TAB PO SCH (09:00)
[2022-03-13] MEDS: PANTOPRAZOLE SOD 40 MG TABEC PO SCH (09:00)
[2022-03-13] MEDS: SITAGLIPTIN 100 MG TAB PO SCH (11:16)
[2022-03-13 11:41] VITALS: BP 157/99
[2022-03-13 15:17] VITALS: BP 150/87
[2022-03-13] MEDS: LEVOFLOXACIN 750MG/D5W 150ML 150 ML IV SCH (17:00)
[2022-03-13] MEDS: ENOXAPARIN SOD INJ 40 MG/0.4 ML SYR SC SCH (17:20)
[2022-03-13 20:00] VITALS: BP 135/85
[2022-03-13] MEDS: ATORVASTATIN 20 MG TAB PO SCH (21:00)
[2022-03-14] VITALS: BP 153/88
[2022-03-14] MEDS: INSULIN LISPRO 100 UNIT/1 ML 3ML VIAL SQ SCH ×4 (07:30→11:30)
[2022-03-14 08:29] VITALS: BP 167/94
[2022-03-14 08:44] VITALS: BP 167/94
[2022-03-14] MEDS: TAMSULOSIN HCL 0.4 MG CAP PO SCH (09:00)
[2022-03-14] MEDS: AMLODIPINE BESYLATE 5 MG TAB PO SCH (09:00)
[2022-03-14] MEDS: INSULIN GLARGINE 100 UNITS/ML VIAL SQ SCH (09:00)
[2022-03-14] MEDS: SITAGLIPTIN 100 MG TAB PO SCH (09:00)
[2022-03-14] MEDS: ALLOPURINOL 300 MG TAB PO SCH (09:00)
[2022-03-14] MEDS: PANTOPRAZOLE SOD 40 MG TABEC PO SCH (09:30)
[2022-03-14 12:05] VITALS: BP 166/91
== END 2022-03-14 18:18 | disposition left against medical advice (07) | DRG 638 ==
LOC: ER 09:10 → ERHOLD 11:41 → MED/SURG3 13:58
PROVIDERS: ADMIT Internal Medicine; ATTEND Internal Medicine
PROC: 30243N1 Transfusion of Nonautologous Red Blood Cells into Central Vein, Percutaneous Approach (ICD-10-PCS; principal; 2022-03-09)
DX: E11.69 Type 2 diabetes mellitus with other specified complication (principal); I12.0 Hypertensive chronic kidney disease with stage 5 chronic kidney disease or end stage renal disease; M86.8X7 Other osteomyelitis, ankle and foot; E11.621 Type 2 diabetes mellitus with foot ulcer; L97.512 Non-pressure chronic ulcer of other part of right foot with fat layer exposed; Z79.4 Long term (current) use of insulin; D63.1 Anemia in chronic kidney disease; E11.22 Type 2 diabetes mellitus with diabetic chronic kidney disease; N18.5 Chronic kidney disease, stage 5; Z99.2 Dependence on renal dialysis; E66.01 Morbid (severe) obesity due to excess calories; Z68.39 Body mass index [BMI] 39.0-39.9, adult; N17.9 Acute kidney failure, unspecified; E11.51 Type 2 diabetes mellitus with diabetic peripheral angiopathy without gangrene; E11.42 Type 2 diabetes mellitus with diabetic polyneuropathy; Z89.411 Acquired absence of right great toe; I25.10 Atherosclerotic heart disease of native coronary artery without angina pectoris; B96.5 Pseudomonas (aeruginosa) (mallei) (pseudomallei) as the cause of diseases classified elsewhere; B95.61 Methicillin susceptible Staphylococcus aureus infection as the cause of diseases classified elsewhere; E11.628 Type 2 diabetes mellitus with other skin complications; Z91.199 Patient's noncompliance with other medical treatment and regimen due to unspecified reason
CPT/HCPCS: 36415; 70450; 71045; 80048; 80053; 80061; 81001; 82948; 83036; 83605; 83735; 84443; 84484; 85025; 85610; 85730; 86850; 86900; 86920; 87040; 87071; 87086; 87205; 93005; 93306; 93312; 93320; 93325; 93925; 94799; 96372; 99251; 99284; J0690; J0696; J1650; J1815; J1940; J2001; J2405; J3010; J3370; J7030; J7050; P9016

== ENCOUNTER → 2022-03-09 | Outpatient (CLI) | payer BC ==
[2022-03-02 12:19] LABS: CALCIUM 10.6 mg/dL (8.4-10.2); CREATININE, SERUM 2.78 mg/dL (0.72-1.25)
== END ==
LOC: RAD 08:30 → OR 08:55 → EDSTATUS 10:30
PROVIDERS: ATTEND Podiatrist Foot & Ankle Surgery
DX: E11.621 Type 2 diabetes mellitus with foot ulcer (principal); L97.411 Non-pressure chronic ulcer of right heel and midfoot limited to breakdown of skin; M86.9 Osteomyelitis, unspecified; Z01.812 Encounter for preprocedural laboratory examination; Z53.9 Procedure and treatment not carried out, unspecified reason
CPT/HCPCS: 36415; 80048

== ENCOUNTER → 2022-03-16 | Outpatient (CLI) | payer BC ==
[~2022-03-16] MED LIST changes: +GABAPENTIN600 MG PO
== END ==
LOC: WCC 11:12
PROVIDERS: ATTEND Podiatrist Foot & Ankle Surgery
DX: E11.621 Type 2 diabetes mellitus with foot ulcer (principal); E11.628 Type 2 diabetes mellitus with other skin complications; Y83.4 Other reconstructive surgery as the cause of abnormal reaction of the patient, or of later complication, without mention of misadventure at the time of the procedure; M86.171 Other acute osteomyelitis, right ankle and foot; S91.301A Unspecified open wound, right foot, initial encounter; L97.516 Non-pressure chronic ulcer of other part of right foot with bone involvement without evidence of necrosis; R60.0 Localized edema; I10 Essential (primary) hypertension; G99.0 Autonomic neuropathy in diseases classified elsewhere; Z01.810 Encounter for preprocedural cardiovascular examination; Z01.811 Encounter for preprocedural respiratory examination
CPT/HCPCS: 36415; 82948

== ENCOUNTER → 2022-04-23 | Outpatient (CLI) | payer BC | LOC: WCC 14:11 | PROVIDERS: ATTEND Podiatrist Foot & Ankle Surgery | DX: T86.828 Other complications of skin graft (allograft) (autograft) (principal); Y83.4 Other reconstructive surgery as the cause of abnormal reaction of the patient, or of later complication, without mention of misadventure at the time of the procedure; E11.628 Type 2 diabetes mellitus with other skin complications; R60.0 Localized edema; I10 Essential (primary) hypertension; G99.0 Autonomic neuropathy in diseases classified elsewhere; Z01.810 Encounter for preprocedural cardiovascular examination; Z01.811 Encounter for preprocedural respiratory examination ==

== ENCOUNTER → 2022-04-27 | Outpatient (CLI) | payer BC | LOC: WCC 10:56 | PROVIDERS: ATTEND Podiatrist Foot & Ankle Surgery | DX: T86.828 Other complications of skin graft (allograft) (autograft) (principal); Y83.4 Other reconstructive surgery as the cause of abnormal reaction of the patient, or of later complication, without mention of misadventure at the time of the procedure; E11.628 Type 2 diabetes mellitus with other skin complications; R60.0 Localized edema; I10 Essential (primary) hypertension; G99.0 Autonomic neuropathy in diseases classified elsewhere; Z01.810 Encounter for preprocedural cardiovascular examination; Z01.811 Encounter for preprocedural respiratory examination ==

== ENCOUNTER → 2022-04-30 | Outpatient (CLI) | payer BC | LOC: WCC 14:01 | PROVIDERS: ATTEND Podiatrist Foot & Ankle Surgery | DX: T86.828 Other complications of skin graft (allograft) (autograft) (principal); Y83.4 Other reconstructive surgery as the cause of abnormal reaction of the patient, or of later complication, without mention of misadventure at the time of the procedure; E11.628 Type 2 diabetes mellitus with other skin complications; R60.0 Localized edema; I10 Essential (primary) hypertension; G99.0 Autonomic neuropathy in diseases classified elsewhere; Z01.810 Encounter for preprocedural cardiovascular examination; Z01.811 Encounter for preprocedural respiratory examination ==

== ENCOUNTER → 2022-05-04 | Outpatient (CLI) | payer BC | LOC: WCC 11:33 | PROVIDERS: ATTEND Podiatrist Foot & Ankle Surgery | DX: T86.828 Other complications of skin graft (allograft) (autograft) (principal); Y83.4 Other reconstructive surgery as the cause of abnormal reaction of the patient, or of later complication, without mention of misadventure at the time of the procedure; E11.628 Type 2 diabetes mellitus with other skin complications; R60.0 Localized edema; I10 Essential (primary) hypertension; G99.0 Autonomic neuropathy in diseases classified elsewhere; Z01.810 Encounter for preprocedural cardiovascular examination; Z01.811 Encounter for preprocedural respiratory examination ==

== ENCOUNTER → 2022-05-07 | Outpatient (CLI) | payer BC | LOC: WCC 13:10 | PROVIDERS: ATTEND Podiatrist Foot & Ankle Surgery | DX: T86.828 Other complications of skin graft (allograft) (autograft) (principal); Y83.4 Other reconstructive surgery as the cause of abnormal reaction of the patient, or of later complication, without mention of misadventure at the time of the procedure; E11.628 Type 2 diabetes mellitus with other skin complications; R60.0 Localized edema; I10 Essential (primary) hypertension; G99.0 Autonomic neuropathy in diseases classified elsewhere; Z01.810 Encounter for preprocedural cardiovascular examination; Z01.811 Encounter for preprocedural respiratory examination ==

== ENCOUNTER → 2022-05-11 | Outpatient (CLI) | payer BC | LOC: WCC 11:26 | PROVIDERS: ATTEND Podiatrist Foot & Ankle Surgery | DX: T86.828 Other complications of skin graft (allograft) (autograft) (principal); Y83.4 Other reconstructive surgery as the cause of abnormal reaction of the patient, or of later complication, without mention of misadventure at the time of the procedure; E11.628 Type 2 diabetes mellitus with other skin complications; R60.0 Localized edema; I10 Essential (primary) hypertension; G99.0 Autonomic neuropathy in diseases classified elsewhere; Z01.810 Encounter for preprocedural cardiovascular examination; Z01.811 Encounter for preprocedural respiratory examination | CPT/HCPCS: 87071; 87075; 87186; 87205 ==

== ENCOUNTER → 2022-05-14 | Outpatient (CLI) | payer BC ==
[~2022-05-14] MED LIST changes: +MINERAL OIL/PETROLAT/GLYCERI 6OZ BTL ONE
== END ==
LOC: WCC 11:02
PROVIDERS: ATTEND Podiatrist Foot & Ankle Surgery
DX: T86.828 Other complications of skin graft (allograft) (autograft) (principal); Y83.4 Other reconstructive surgery as the cause of abnormal reaction of the patient, or of later complication, without mention of misadventure at the time of the procedure; E11.628 Type 2 diabetes mellitus with other skin complications; R60.0 Localized edema; I10 Essential (primary) hypertension; G99.0 Autonomic neuropathy in diseases classified elsewhere; Z01.810 Encounter for preprocedural cardiovascular examination; Z01.811 Encounter for preprocedural respiratory examination

== ENCOUNTER → 2022-05-18 | Outpatient (CLI) | payer BC ==
[~2022-05-18] MED LIST changes: -MINERAL OIL/PETROLAT/GLYCERI 6OZ BTL ONE
== END ==
LOC: WCC 10:20
PROVIDERS: ATTEND Podiatrist Foot & Ankle Surgery
DX: T86.828 Other complications of skin graft (allograft) (autograft) (principal); Y83.4 Other reconstructive surgery as the cause of abnormal reaction of the patient, or of later complication, without mention of misadventure at the time of the procedure; E11.628 Type 2 diabetes mellitus with other skin complications; R60.0 Localized edema; I10 Essential (primary) hypertension; G99.0 Autonomic neuropathy in diseases classified elsewhere; Z01.810 Encounter for preprocedural cardiovascular examination; Z01.811 Encounter for preprocedural respiratory examination

== ENCOUNTER → 2022-05-21 | Outpatient (CLI) | payer BC | LOC: WCC 11:51 | PROVIDERS: ATTEND Podiatrist Foot & Ankle Surgery | DX: T86.828 Other complications of skin graft (allograft) (autograft) (principal); Y83.4 Other reconstructive surgery as the cause of abnormal reaction of the patient, or of later complication, without mention of misadventure at the time of the procedure; E11.628 Type 2 diabetes mellitus with other skin complications; R60.0 Localized edema; I10 Essential (primary) hypertension; G99.0 Autonomic neuropathy in diseases classified elsewhere; Z01.810 Encounter for preprocedural cardiovascular examination; Z01.811 Encounter for preprocedural respiratory examination ==

== ENCOUNTER → 2022-05-25 | Outpatient (CLI) | payer BC | LOC: WCC 09:15 | PROVIDERS: ATTEND Podiatrist Foot & Ankle Surgery | DX: T86.828 Other complications of skin graft (allograft) (autograft) (principal); Y83.4 Other reconstructive surgery as the cause of abnormal reaction of the patient, or of later complication, without mention of misadventure at the time of the procedure; E11.628 Type 2 diabetes mellitus with other skin complications; R60.0 Localized edema; I10 Essential (primary) hypertension; G99.0 Autonomic neuropathy in diseases classified elsewhere; Z01.810 Encounter for preprocedural cardiovascular examination; Z01.811 Encounter for preprocedural respiratory examination ==

== ENCOUNTER → 2022-05-28 | Outpatient (CLI) | payer BC | LOC: WCC 11:56 | PROVIDERS: ATTEND Podiatrist Foot & Ankle Surgery | DX: T86.828 Other complications of skin graft (allograft) (autograft) (principal); Y83.4 Other reconstructive surgery as the cause of abnormal reaction of the patient, or of later complication, without mention of misadventure at the time of the procedure; E11.628 Type 2 diabetes mellitus with other skin complications; R60.0 Localized edema; I10 Essential (primary) hypertension; G99.0 Autonomic neuropathy in diseases classified elsewhere; Z01.810 Encounter for preprocedural cardiovascular examination; Z01.811 Encounter for preprocedural respiratory examination ==

== ENCOUNTER → 2022-06-01 | Outpatient (CLI) | payer BC | LOC: WCC 10:09 | PROVIDERS: ATTEND Podiatrist Foot & Ankle Surgery | DX: T86.828 Other complications of skin graft (allograft) (autograft) (principal); Y83.4 Other reconstructive surgery as the cause of abnormal reaction of the patient, or of later complication, without mention of misadventure at the time of the procedure; E11.628 Type 2 diabetes mellitus with other skin complications; R60.0 Localized edema; I10 Essential (primary) hypertension; G99.0 Autonomic neuropathy in diseases classified elsewhere; Z01.810 Encounter for preprocedural cardiovascular examination; Z01.811 Encounter for preprocedural respiratory examination ==

== ENCOUNTER → 2022-06-04 | Outpatient (CLI) | payer BC | LOC: WCC 10:06 | PROVIDERS: ATTEND Internal Medicine Infectious Disease | DX: R60.0 Localized edema (principal) ==

== ENCOUNTER → 2022-06-08 | Outpatient (CLI) | payer BC | LOC: WCC 11:10 | PROVIDERS: ATTEND Podiatrist Foot & Ankle Surgery | DX: T86.828 Other complications of skin graft (allograft) (autograft) (principal); Y83.4 Other reconstructive surgery as the cause of abnormal reaction of the patient, or of later complication, without mention of misadventure at the time of the procedure; E11.628 Type 2 diabetes mellitus with other skin complications; R60.0 Localized edema; I10 Essential (primary) hypertension; G99.0 Autonomic neuropathy in diseases classified elsewhere; Z01.810 Encounter for preprocedural cardiovascular examination; Z01.811 Encounter for preprocedural respiratory examination ==

== ENCOUNTER → 2022-06-11 | Outpatient (CLI) | payer BC ==
[~2022-06-11] MED LIST changes: +MINERAL OIL/PETROLAT/GLYCERI 6OZ BTL ONE
== END ==
LOC: WCC 15:29
PROVIDERS: ATTEND Podiatrist Foot & Ankle Surgery
DX: R60.0 Localized edema (principal)

== ENCOUNTER → 2022-06-15 | Outpatient (CLI) | payer BC ==
[~2022-06-15] MED LIST changes: -MINERAL OIL/PETROLAT/GLYCERI 6OZ BTL ONE
== END ==
LOC: WCC 13:07
PROVIDERS: ATTEND Podiatrist Foot & Ankle Surgery
DX: E11.621 Type 2 diabetes mellitus with foot ulcer (principal); L97.412 Non-pressure chronic ulcer of right heel and midfoot with fat layer exposed; R60.0 Localized edema

== ENCOUNTER → 2022-06-18 | Outpatient (CLI) | payer BC | LOC: WCC 14:03 | PROVIDERS: ATTEND Podiatrist Foot & Ankle Surgery | DX: E11.621 Type 2 diabetes mellitus with foot ulcer (principal); L97.412 Non-pressure chronic ulcer of right heel and midfoot with fat layer exposed; R60.0 Localized edema ==

== ENCOUNTER → 2022-06-22 | Outpatient (CLI) | payer BC | LOC: WCC 14:05 | PROVIDERS: ATTEND Internal Medicine Infectious Disease | DX: E11.621 Type 2 diabetes mellitus with foot ulcer (principal); L97.412 Non-pressure chronic ulcer of right heel and midfoot with fat layer exposed; R60.0 Localized edema ==

== ENCOUNTER → 2022-06-25 | Outpatient (CLI) | payer BC | LOC: WCC 14:24 | PROVIDERS: ATTEND Podiatrist Foot & Ankle Surgery | DX: E11.621 Type 2 diabetes mellitus with foot ulcer (principal); L97.412 Non-pressure chronic ulcer of right heel and midfoot with fat layer exposed ==

== ENCOUNTER → 2022-06-29 | Outpatient (CLI) | payer BC | LOC: WCC 13:29 | PROVIDERS: ATTEND Plastic Surgery | DX: E11.621 Type 2 diabetes mellitus with foot ulcer (principal); L97.412 Non-pressure chronic ulcer of right heel and midfoot with fat layer exposed; L97.519 Non-pressure chronic ulcer of other part of right foot with unspecified severity ==

== ENCOUNTER → 2022-07-02 | Outpatient (CLI) | payer BC | LOC: WCC 13:52 | PROVIDERS: ATTEND Podiatrist Foot & Ankle Surgery | DX: R60.0 Localized edema (principal) ==

== ENCOUNTER → 2022-07-06 | Outpatient (CLI) | payer BC | LOC: WCC 08:28 | PROVIDERS: ATTEND Podiatrist Foot & Ankle Surgery | DX: E11.621 Type 2 diabetes mellitus with foot ulcer (principal); L97.519 Non-pressure chronic ulcer of other part of right foot with unspecified severity; L97.412 Non-pressure chronic ulcer of right heel and midfoot with fat layer exposed; R60.0 Localized edema ==

== ENCOUNTER → 2022-07-09 | Outpatient (CLI) | payer BC | LOC: WCC | PROVIDERS: ATTEND Internal Medicine Infectious Disease | DX: E11.621 Type 2 diabetes mellitus with foot ulcer (principal); L97.412 Non-pressure chronic ulcer of right heel and midfoot with fat layer exposed; L97.519 Non-pressure chronic ulcer of other part of right foot with unspecified severity; R60.0 Localized edema ==

== ENCOUNTER → 2022-07-09 | Outpatient (CLI) | payer BC | LOC: WCC 15:25 | PROVIDERS: ATTEND Podiatrist Foot & Ankle Surgery | DX: E11.621 Type 2 diabetes mellitus with foot ulcer (principal); L97.412 Non-pressure chronic ulcer of right heel and midfoot with fat layer exposed; L97.519 Non-pressure chronic ulcer of other part of right foot with unspecified severity; R60.0 Localized edema ==

== ENCOUNTER → 2022-07-13 | Outpatient (CLI) | payer BC ==
[~2022-07-13] MED LIST changes: +MINERAL OIL/PETROLAT/GLYCERI 6OZ BTL ONE; +SILVER SULFADIAZINE 50GM CREAM ONE
== END ==
LOC: WCC 10:39
PROVIDERS: ATTEND Podiatrist Foot & Ankle Surgery
DX: E11.621 Type 2 diabetes mellitus with foot ulcer (principal); L97.519 Non-pressure chronic ulcer of other part of right foot with unspecified severity; L97.412 Non-pressure chronic ulcer of right heel and midfoot with fat layer exposed; R60.0 Localized edema
CPT/HCPCS: 87071; 87075; 87205

== ENCOUNTER → 2022-07-16 | Outpatient (CLI) | payer BC ==
[~2022-07-16] MED LIST changes: -MINERAL OIL/PETROLAT/GLYCERI 6OZ BTL ONE; -SILVER SULFADIAZINE 50GM CREAM ONE
== END ==
LOC: WCC 08:04
PROVIDERS: ATTEND Podiatrist Foot & Ankle Surgery
DX: E11.628 Type 2 diabetes mellitus with other skin complications (principal); Y83.4 Other reconstructive surgery as the cause of abnormal reaction of the patient, or of later complication, without mention of misadventure at the time of the procedure; I10 Essential (primary) hypertension; G99.0 Autonomic neuropathy in diseases classified elsewhere; Z01.810 Encounter for preprocedural cardiovascular examination; Z01.811 Encounter for preprocedural respiratory examination

== ENCOUNTER → 2022-07-20 | Outpatient (CLI) | payer BC | LOC: WCC | PROVIDERS: ATTEND Podiatrist Foot & Ankle Surgery | DX: E11.621 Type 2 diabetes mellitus with foot ulcer (principal); L97.412 Non-pressure chronic ulcer of right heel and midfoot with fat layer exposed; R60.0 Localized edema; L97.519 Non-pressure chronic ulcer of other part of right foot with unspecified severity ==

== ENCOUNTER → 2022-07-23 | Outpatient (CLI) | payer BC | LOC: WCC 08:00 | PROVIDERS: ATTEND Podiatrist Foot & Ankle Surgery | DX: E11.621 Type 2 diabetes mellitus with foot ulcer (principal); L97.412 Non-pressure chronic ulcer of right heel and midfoot with fat layer exposed; L97.519 Non-pressure chronic ulcer of other part of right foot with unspecified severity; R60.0 Localized edema ==

== ENCOUNTER → 2022-07-27 | Outpatient (CLI) | payer BC | LOC: WCC 07-26 09:50 | PROVIDERS: ATTEND Podiatrist Foot & Ankle Surgery | DX: E11.621 Type 2 diabetes mellitus with foot ulcer (principal); L97.412 Non-pressure chronic ulcer of right heel and midfoot with fat layer exposed ==

== ENCOUNTER → 2022-08-03 | Outpatient (CLI) | payer BC | LOC: WCC 11:10 | PROVIDERS: ATTEND Podiatrist Foot & Ankle Surgery | DX: E11.621 Type 2 diabetes mellitus with foot ulcer (principal); L97.519 Non-pressure chronic ulcer of other part of right foot with unspecified severity; R60.0 Localized edema ==

== ENCOUNTER → 2022-08-10 | Outpatient (CLI) | payer BC ==
[~2022-08-10] MED LIST changes: +MINERAL OIL/PETROLAT/GLYCERI 6OZ BTL ONE; +TRYPSIN/BALSAM PERU/CASTOR OIL ONE
== END ==
LOC: WCC 07:28
PROVIDERS: ATTEND Podiatrist Foot & Ankle Surgery
DX: E11.621 Type 2 diabetes mellitus with foot ulcer (principal); L97.519 Non-pressure chronic ulcer of other part of right foot with unspecified severity

== ENCOUNTER → 2022-08-31 | Outpatient (CLI) | payer BC ==
[~2022-08-31] MED LIST changes: -MINERAL OIL/PETROLAT/GLYCERI 6OZ BTL ONE; -TRYPSIN/BALSAM PERU/CASTOR OIL ONE
== END ==
LOC: WCC 08:06
PROVIDERS: ATTEND Podiatrist Foot & Ankle Surgery
DX: E11.621 Type 2 diabetes mellitus with foot ulcer (principal); L97.519 Non-pressure chronic ulcer of other part of right foot with unspecified severity

== ENCOUNTER → 2023-01-11 | Outpatient (REF) | payer BC ==
[~2023-01-11] MED LIST changes: +MINERAL OIL/PETROLAT/GLYCERI 6OZ BTL ONE; +TRYPSIN/BALSAM PERU/CASTOR OIL ONE
== END ==
LOC: WCC 08:58
PROVIDERS: ATTEND Podiatrist Foot & Ankle Surgery
DX: E11.621 Type 2 diabetes mellitus with foot ulcer (principal); E11.40 Type 2 diabetes mellitus with diabetic neuropathy, unspecified; L97.418 Non-pressure chronic ulcer of right heel and midfoot with other specified severity; R60.0 Localized edema; L84 Corns and callosities

== ENCOUNTER → 2023-01-26 | Outpatient (REF) | payer BC ==
[~2023-01-26] MED LIST changes: +MUPIROCIN 2% OINT 22 GM TUBE ONE; -TRYPSIN/BALSAM PERU/CASTOR OIL ONE
== END ==
LOC: WCC 15:37
PROVIDERS: ATTEND Podiatrist Foot & Ankle Surgery
DX: E11.621 Type 2 diabetes mellitus with foot ulcer (principal); E11.40 Type 2 diabetes mellitus with diabetic neuropathy, unspecified; L97.418 Non-pressure chronic ulcer of right heel and midfoot with other specified severity; L84 Corns and callosities; R60.0 Localized edema

== ENCOUNTER → 2023-02-01 | Outpatient (REF) | payer BC ==
[~2023-02-01] MED LIST changes: -MUPIROCIN 2% OINT 22 GM TUBE ONE; +TRYPSIN/BALSAM PERU/CASTOR OIL ONE
== END ==
LOC: WCC 08:39
PROVIDERS: ATTEND Podiatrist Foot & Ankle Surgery
DX: E11.621 Type 2 diabetes mellitus with foot ulcer (principal); E11.40 Type 2 diabetes mellitus with diabetic neuropathy, unspecified; L97.418 Non-pressure chronic ulcer of right heel and midfoot with other specified severity; L84 Corns and callosities; R60.0 Localized edema

== ENCOUNTER → 2023-02-04 | Outpatient (REF) | payer BC | LOC: WCC 12:08 | PROVIDERS: ATTEND Podiatrist Foot & Ankle Surgery | DX: E11.621 Type 2 diabetes mellitus with foot ulcer (principal); L97.418 Non-pressure chronic ulcer of right heel and midfoot with other specified severity; R60.0 Localized edema ==

== ENCOUNTER → 2023-02-15 | Outpatient (REF) | payer BC | LOC: WCC 13:25 | PROVIDERS: ATTEND Podiatrist Foot & Ankle Surgery | DX: E11.621 Type 2 diabetes mellitus with foot ulcer (principal); E11.40 Type 2 diabetes mellitus with diabetic neuropathy, unspecified; L97.418 Non-pressure chronic ulcer of right heel and midfoot with other specified severity; L84 Corns and callosities; R60.0 Localized edema ==

== ENCOUNTER → 2023-02-25 | Outpatient (REF) | payer BC | LOC: WCC 14:39 | PROVIDERS: ATTEND Podiatrist Foot & Ankle Surgery | DX: E11.621 Type 2 diabetes mellitus with foot ulcer (principal); E11.40 Type 2 diabetes mellitus with diabetic neuropathy, unspecified; L97.418 Non-pressure chronic ulcer of right heel and midfoot with other specified severity; L84 Corns and callosities; R60.0 Localized edema ==

== ENCOUNTER → 2023-03-04 | Outpatient (REF) | payer BC ==
[~2023-03-04] MED LIST changes: -MINERAL OIL/PETROLAT/GLYCERI 6OZ BTL ONE; -TRYPSIN/BALSAM PERU/CASTOR OIL ONE
== END ==
LOC: WCC 09:04
PROVIDERS: ATTEND Podiatrist Foot & Ankle Surgery
DX: E11.621 Type 2 diabetes mellitus with foot ulcer (principal); E11.40 Type 2 diabetes mellitus with diabetic neuropathy, unspecified; L97.418 Non-pressure chronic ulcer of right heel and midfoot with other specified severity; L84 Corns and callosities; R60.0 Localized edema

== ENCOUNTER → 2023-03-09 | Outpatient (REF) | payer BC | LOC: WCC 15:52 | PROVIDERS: ATTEND Podiatrist Foot & Ankle Surgery | DX: E11.621 Type 2 diabetes mellitus with foot ulcer (principal); E11.40 Type 2 diabetes mellitus with diabetic neuropathy, unspecified; L97.418 Non-pressure chronic ulcer of right heel and midfoot with other specified severity; L84 Corns and callosities; R60.0 Localized edema ==

== ENCOUNTER → 2023-03-22 | Outpatient (REF) | payer BC | LOC: WCC 14:27 | PROVIDERS: ATTEND Podiatrist Foot & Ankle Surgery | DX: E11.621 Type 2 diabetes mellitus with foot ulcer (principal); L97.418 Non-pressure chronic ulcer of right heel and midfoot with other specified severity ==

== ENCOUNTER → 2023-04-28 | Outpatient (REF) | payer BC ==
[~2023-04-28] MED LIST changes: +MINERAL OIL/PETROLAT/GLYCERI 6OZ BTL ONE; +TRYPSIN/BALSAM PERU/CASTOR OIL ONE
== END ==
LOC: WCC 12:07
PROVIDERS: ATTEND Podiatrist Foot & Ankle Surgery
DX: E11.621 Type 2 diabetes mellitus with foot ulcer (principal); E11.40 Type 2 diabetes mellitus with diabetic neuropathy, unspecified; L89.616 Pressure-induced deep tissue damage of right heel; L97.418 Non-pressure chronic ulcer of right heel and midfoot with other specified severity; L84 Corns and callosities; R60.0 Localized edema

== ENCOUNTER → 2023-05-13 | Outpatient (REF) | payer BC ==
[~2023-05-13] MED LIST changes: -MINERAL OIL/PETROLAT/GLYCERI 6OZ BTL ONE; -TRYPSIN/BALSAM PERU/CASTOR OIL ONE
== END ==
LOC: WCC 08:57
PROVIDERS: ATTEND Podiatrist Foot & Ankle Surgery
DX: L89.616 Pressure-induced deep tissue damage of right heel (principal); R60.0 Localized edema

== ENCOUNTER → 2023-07-12 | Outpatient (REF) | payer BC ==
[~2023-07-12] MED LIST changes: +TRYPSIN/BALSAM PERU/CASTOR OIL ONE
== END ==
LOC: WCC 08:17
PROVIDERS: ATTEND Podiatrist Foot & Ankle Surgery
DX: E11.621 Type 2 diabetes mellitus with foot ulcer (principal); L97.418 Non-pressure chronic ulcer of right heel and midfoot with other specified severity; L97.528 Non-pressure chronic ulcer of other part of left foot with other specified severity; L89.616 Pressure-induced deep tissue damage of right heel; B96.5 Pseudomonas (aeruginosa) (mallei) (pseudomallei) as the cause of diseases classified elsewhere; R60.0 Localized edema

== ENCOUNTER → 2023-08-05 | Outpatient (REF) | payer BC ==
[~2023-08-05] MED LIST changes: +MINERAL OIL/PETROLAT/GLYCERI 6OZ BTL ONE; -TRYPSIN/BALSAM PERU/CASTOR OIL ONE
== END ==
LOC: WCC 13:27
PROVIDERS: ATTEND Podiatrist Foot & Ankle Surgery
DX: E11.621 Type 2 diabetes mellitus with foot ulcer (principal); L97.528 Non-pressure chronic ulcer of other part of left foot with other specified severity; B96.5 Pseudomonas (aeruginosa) (mallei) (pseudomallei) as the cause of diseases classified elsewhere

== ENCOUNTER → 2023-08-23 | Outpatient (REF) | payer BC ==
[~2023-08-23] MED LIST changes: +TRYPSIN/BALSAM PERU/CASTOR OIL ONE
== END ==
LOC: WCC 15:07
PROVIDERS: ATTEND Podiatrist Foot & Ankle Surgery
DX: E11.621 Type 2 diabetes mellitus with foot ulcer (principal); L97.418 Non-pressure chronic ulcer of right heel and midfoot with other specified severity; L97.528 Non-pressure chronic ulcer of other part of left foot with other specified severity; L89.616 Pressure-induced deep tissue damage of right heel; S90.811A Abrasion, right foot, initial encounter; R60.0 Localized edema

== ENCOUNTER → 2023-08-30 | Outpatient (REF) | payer BC ==
[~2023-08-30] MED LIST changes: -MINERAL OIL/PETROLAT/GLYCERI 6OZ BTL ONE; -TRYPSIN/BALSAM PERU/CASTOR OIL ONE
== END ==
LOC: WCC 08:00
PROVIDERS: ATTEND Podiatrist Foot & Ankle Surgery
DX: E11.621 Type 2 diabetes mellitus with foot ulcer (principal); L89.616 Pressure-induced deep tissue damage of right heel; L97.418 Non-pressure chronic ulcer of right heel and midfoot with other specified severity; L97.528 Non-pressure chronic ulcer of other part of left foot with other specified severity; S90.811A Abrasion, right foot, initial encounter; R60.0 Localized edema

== ENCOUNTER → 2023-09-30 | Outpatient (REF) | payer BC ==
[~2023-09-30] MED LIST changes: +TRYPSIN/BALSAM PERU/CASTOR OIL ONE
== END ==
LOC: WCC 08:00
PROVIDERS: ATTEND Podiatrist Foot & Ankle Surgery
DX: E11.621 Type 2 diabetes mellitus with foot ulcer (principal); E11.622 Type 2 diabetes mellitus with other skin ulcer; L97.318 Non-pressure chronic ulcer of right ankle with other specified severity; L97.418 Non-pressure chronic ulcer of right heel and midfoot with other specified severity; L97.528 Non-pressure chronic ulcer of other part of left foot with other specified severity; R60.0 Localized edema

== ENCOUNTER → 2023-10-10 | Outpatient (REF) | payer BC ==
[~2023-10-10] MED LIST changes: +MINERAL OIL/PETROLAT/GLYCERI 6OZ BTL ONE
== END ==
LOC: WCC 08:00
PROVIDERS: ATTEND Podiatrist Foot & Ankle Surgery
DX: E11.621 Type 2 diabetes mellitus with foot ulcer (principal); E11.622 Type 2 diabetes mellitus with other skin ulcer; L97.318 Non-pressure chronic ulcer of right ankle with other specified severity; L97.418 Non-pressure chronic ulcer of right heel and midfoot with other specified severity; L97.528 Non-pressure chronic ulcer of other part of left foot with other specified severity; R60.0 Localized edema

== ENCOUNTER → 2023-10-12 | Outpatient (REF) | payer BC | LOC: WCC 08:00 | PROVIDERS: ATTEND Podiatrist Foot & Ankle Surgery | DX: E11.621 Type 2 diabetes mellitus with foot ulcer (principal); E11.622 Type 2 diabetes mellitus with other skin ulcer; L97.418 Non-pressure chronic ulcer of right heel and midfoot with other specified severity; L97.528 Non-pressure chronic ulcer of other part of left foot with other specified severity; L97.318 Non-pressure chronic ulcer of right ankle with other specified severity; R60.0 Localized edema ==

== ENCOUNTER → 2023-10-14 | Outpatient (REF) | payer BC | LOC: WCC 08:00 | PROVIDERS: ATTEND Podiatrist Foot & Ankle Surgery | DX: E11.621 Type 2 diabetes mellitus with foot ulcer (principal); E11.622 Type 2 diabetes mellitus with other skin ulcer; L97.318 Non-pressure chronic ulcer of right ankle with other specified severity; L97.418 Non-pressure chronic ulcer of right heel and midfoot with other specified severity; L97.528 Non-pressure chronic ulcer of other part of left foot with other specified severity; R60.0 Localized edema ==

== ENCOUNTER → 2023-10-19 | Outpatient (REF) | payer BC | LOC: WCC 07:56 | PROVIDERS: ATTEND Podiatrist Foot & Ankle Surgery | DX: E11.621 Type 2 diabetes mellitus with foot ulcer (principal); E11.622 Type 2 diabetes mellitus with other skin ulcer; L97.318 Non-pressure chronic ulcer of right ankle with other specified severity; L97.418 Non-pressure chronic ulcer of right heel and midfoot with other specified severity; L97.528 Non-pressure chronic ulcer of other part of left foot with other specified severity; R60.0 Localized edema ==

== ENCOUNTER → 2023-10-21 | Outpatient (REF) | payer BC ==
[~2023-10-21] MED LIST changes: -MINERAL OIL/PETROLAT/GLYCERI 6OZ BTL ONE; -TRYPSIN/BALSAM PERU/CASTOR OIL ONE
== END ==
LOC: WCC 08:00
PROVIDERS: ATTEND Podiatrist Foot & Ankle Surgery
DX: E11.621 Type 2 diabetes mellitus with foot ulcer (principal); E11.622 Type 2 diabetes mellitus with other skin ulcer; L97.528 Non-pressure chronic ulcer of other part of left foot with other specified severity; L97.318 Non-pressure chronic ulcer of right ankle with other specified severity; L97.418 Non-pressure chronic ulcer of right heel and midfoot with other specified severity; R60.0 Localized edema

== ENCOUNTER → 2023-10-26 | Outpatient (REF) | payer BC ==
[~2023-10-26] MED LIST changes: +MINERAL OIL/PETROLAT/GLYCERI 6OZ BTL ONE; +TRYPSIN/BALSAM PERU/CASTOR OIL ONE
== END ==
LOC: WCC 09:15
PROVIDERS: ATTEND Podiatrist Foot & Ankle Surgery
DX: E11.621 Type 2 diabetes mellitus with foot ulcer (principal); E11.622 Type 2 diabetes mellitus with other skin ulcer; L97.318 Non-pressure chronic ulcer of right ankle with other specified severity; L97.418 Non-pressure chronic ulcer of right heel and midfoot with other specified severity; L97.528 Non-pressure chronic ulcer of other part of left foot with other specified severity; R60.0 Localized edema

== ENCOUNTER → 2023-10-28 | Outpatient (REF) | payer BC | LOC: WCC 15:15 | PROVIDERS: ATTEND Podiatrist Foot & Ankle Surgery | DX: E11.621 Type 2 diabetes mellitus with foot ulcer (principal); E11.622 Type 2 diabetes mellitus with other skin ulcer; L97.318 Non-pressure chronic ulcer of right ankle with other specified severity; L97.418 Non-pressure chronic ulcer of right heel and midfoot with other specified severity; L97.528 Non-pressure chronic ulcer of other part of left foot with other specified severity; R60.0 Localized edema ==

== ENCOUNTER → 2023-10-31 | Outpatient (REF) | payer BC ==
[~2023-10-31] MED LIST changes: -MINERAL OIL/PETROLAT/GLYCERI 6OZ BTL ONE; -TRYPSIN/BALSAM PERU/CASTOR OIL ONE
== END ==
LOC: WCC 14:03
PROVIDERS: ATTEND Podiatrist Foot & Ankle Surgery
DX: E11.621 Type 2 diabetes mellitus with foot ulcer (principal); E11.622 Type 2 diabetes mellitus with other skin ulcer; L97.318 Non-pressure chronic ulcer of right ankle with other specified severity; L97.418 Non-pressure chronic ulcer of right heel and midfoot with other specified severity; L97.528 Non-pressure chronic ulcer of other part of left foot with other specified severity; R60.0 Localized edema

== ENCOUNTER → 2023-11-02 | Outpatient (REF) | payer BC | LOC: WCC 08:30 | PROVIDERS: ATTEND Podiatrist Foot & Ankle Surgery | DX: E11.621 Type 2 diabetes mellitus with foot ulcer (principal); E11.622 Type 2 diabetes mellitus with other skin ulcer; L97.318 Non-pressure chronic ulcer of right ankle with other specified severity; L97.418 Non-pressure chronic ulcer of right heel and midfoot with other specified severity; L97.528 Non-pressure chronic ulcer of other part of left foot with other specified severity; R60.0 Localized edema ==

== ENCOUNTER → 2023-11-11 | Outpatient (REF) | payer BC ==
[~2023-11-11] MED LIST changes: +CEPHALEXIN500 MG PO; +COREG12.5 MG PO; +FERROUS SULFAT325 M1 PO; +FOLIC ACID-VIT1 EACH PO; +FUROSEMIDE40 MG PO; +GLIPIZIDE5 MG PO; +HYDRALAZINE HCL25 MG PO; +PANTOPRAZOLE SO40 MG PO; +ZITHROMAX500 MG PO
== END ==
LOC: WCC 14:38
PROVIDERS: ATTEND Podiatrist Foot & Ankle Surgery
DX: E11.621 Type 2 diabetes mellitus with foot ulcer (principal); E11.622 Type 2 diabetes mellitus with other skin ulcer; L97.318 Non-pressure chronic ulcer of right ankle with other specified severity; L97.418 Non-pressure chronic ulcer of right heel and midfoot with other specified severity; L97.528 Non-pressure chronic ulcer of other part of left foot with other specified severity; R60.0 Localized edema

== ENCOUNTER → 2023-11-14 | Outpatient (REF) | payer BC ==
[~2023-11-14] MED LIST changes: -CEPHALEXIN500 MG PO; -COREG12.5 MG PO; -FERROUS SULFAT325 M1 PO; -FOLIC ACID-VIT1 EACH PO; -FUROSEMIDE40 MG PO; -GLIPIZIDE5 MG PO; -HYDRALAZINE HCL25 MG PO; +MINERAL OIL/PETROLAT/GLYCERI 6OZ BTL ONE; -PANTOPRAZOLE SO40 MG PO; +TRYPSIN/BALSAM PERU/CASTOR OIL ONE; -ZITHROMAX500 MG PO
== END ==
LOC: WCC 14:29
PROVIDERS: ATTEND Podiatrist Foot & Ankle Surgery
DX: E11.621 Type 2 diabetes mellitus with foot ulcer (principal); L97.528 Non-pressure chronic ulcer of other part of left foot with other specified severity

== ENCOUNTER → 2023-11-16 | Outpatient (REF) | payer BC | LOC: WCC 10:42 | PROVIDERS: ATTEND Podiatrist Foot & Ankle Surgery | DX: E11.621 Type 2 diabetes mellitus with foot ulcer (principal); E11.622 Type 2 diabetes mellitus with other skin ulcer; L97.318 Non-pressure chronic ulcer of right ankle with other specified severity; L97.418 Non-pressure chronic ulcer of right heel and midfoot with other specified severity; L97.528 Non-pressure chronic ulcer of other part of left foot with other specified severity; R60.0 Localized edema ==

== ENCOUNTER → 2023-11-18 | Outpatient (REF) | payer BC | LOC: WCC 08:22 | PROVIDERS: ATTEND Podiatrist Foot & Ankle Surgery | DX: E11.621 Type 2 diabetes mellitus with foot ulcer (principal); E11.622 Type 2 diabetes mellitus with other skin ulcer; L97.528 Non-pressure chronic ulcer of other part of left foot with other specified severity; L97.318 Non-pressure chronic ulcer of right ankle with other specified severity; L97.418 Non-pressure chronic ulcer of right heel and midfoot with other specified severity; R60.0 Localized edema ==

== ENCOUNTER → 2023-11-21 | Outpatient (REF) | payer BC | LOC: WCC 13:06 | PROVIDERS: ATTEND Podiatrist Foot & Ankle Surgery | DX: E11.621 Type 2 diabetes mellitus with foot ulcer (principal); E11.622 Type 2 diabetes mellitus with other skin ulcer; L97.528 Non-pressure chronic ulcer of other part of left foot with other specified severity; L97.418 Non-pressure chronic ulcer of right heel and midfoot with other specified severity; L97.318 Non-pressure chronic ulcer of right ankle with other specified severity; R60.0 Localized edema ==

== ENCOUNTER → 2023-11-23 | Outpatient (REF) | payer BC | LOC: WCC 08:14 | PROVIDERS: ATTEND Podiatrist Foot & Ankle Surgery | DX: E11.621 Type 2 diabetes mellitus with foot ulcer (principal); E11.622 Type 2 diabetes mellitus with other skin ulcer; L97.318 Non-pressure chronic ulcer of right ankle with other specified severity; L97.418 Non-pressure chronic ulcer of right heel and midfoot with other specified severity; L97.528 Non-pressure chronic ulcer of other part of left foot with other specified severity; R60.0 Localized edema ==

== ENCOUNTER → 2023-11-25 | Outpatient (REF) | payer BC | LOC: WCC 09:55 | PROVIDERS: ATTEND Podiatrist Foot & Ankle Surgery | DX: E11.621 Type 2 diabetes mellitus with foot ulcer (principal); E11.622 Type 2 diabetes mellitus with other skin ulcer; L97.318 Non-pressure chronic ulcer of right ankle with other specified severity; L97.418 Non-pressure chronic ulcer of right heel and midfoot with other specified severity; L97.528 Non-pressure chronic ulcer of other part of left foot with other specified severity; R60.0 Localized edema | CPT/HCPCS: 87071; 87075; 87186; 87205 ==

== ENCOUNTER → 2023-11-28 | Outpatient (REF) | payer BC ==
[~2023-11-28] MED LIST changes: -MINERAL OIL/PETROLAT/GLYCERI 6OZ BTL ONE; -TRYPSIN/BALSAM PERU/CASTOR OIL ONE
== END ==
LOC: WCC 10:45
PROVIDERS: ATTEND Podiatrist Foot & Ankle Surgery
DX: E11.621 Type 2 diabetes mellitus with foot ulcer (principal); E11.622 Type 2 diabetes mellitus with other skin ulcer; L97.318 Non-pressure chronic ulcer of right ankle with other specified severity; L97.418 Non-pressure chronic ulcer of right heel and midfoot with other specified severity; L97.528 Non-pressure chronic ulcer of other part of left foot with other specified severity; R60.0 Localized edema

== ENCOUNTER → 2023-11-30 | Outpatient (REF) | payer BC ==
[~2023-11-30] MED LIST changes: +MINERAL OIL/PETROLAT/GLYCERI 6OZ BTL ONE
== END ==
LOC: WCC 08:08
PROVIDERS: ATTEND Podiatrist Foot & Ankle Surgery
DX: E11.621 Type 2 diabetes mellitus with foot ulcer (principal); L97.528 Non-pressure chronic ulcer of other part of left foot with other specified severity; L97.418 Non-pressure chronic ulcer of right heel and midfoot with other specified severity; R60.0 Localized edema

== ENCOUNTER → 2023-12-02 | Outpatient (REF) | payer BC ==
[~2023-12-02] MED LIST changes: +TRYPSIN/BALSAM PERU/CASTOR OIL ONE
== END ==
LOC: WCC 08:40
PROVIDERS: ATTEND Podiatrist Foot & Ankle Surgery
DX: E11.621 Type 2 diabetes mellitus with foot ulcer (principal); E11.622 Type 2 diabetes mellitus with other skin ulcer; L97.318 Non-pressure chronic ulcer of right ankle with other specified severity; L97.418 Non-pressure chronic ulcer of right heel and midfoot with other specified severity; L97.528 Non-pressure chronic ulcer of other part of left foot with other specified severity; R60.0 Localized edema

== ENCOUNTER → 2023-12-06 | Outpatient (REF) | payer BC ==
[~2023-12-06] MED LIST changes: +CEPHALEXIN500 MG PO; +COREG12.5 MG PO; +FERROUS SULFAT325 M1 PO; +FOLIC ACID-VIT1 EACH PO; +FUROSEMIDE40 MG PO; +GLIPIZIDE5 MG PO; +HYDRALAZINE HCL25 MG PO; -MINERAL OIL/PETROLAT/GLYCERI 6OZ BTL ONE; +PANTOPRAZOLE SO40 MG PO; -TRYPSIN/BALSAM PERU/CASTOR OIL ONE; +ZITHROMAX500 MG PO
== END ==
LOC: WCC 07:57
PROVIDERS: ATTEND Podiatrist Foot & Ankle Surgery
DX: E11.621 Type 2 diabetes mellitus with foot ulcer (principal); L97.418 Non-pressure chronic ulcer of right heel and midfoot with other specified severity; L97.528 Non-pressure chronic ulcer of other part of left foot with other specified severity; R60.0 Localized edema

== ENCOUNTER → 2023-12-09 | Outpatient (REF) | payer BC | LOC: WCC 15:31 | PROVIDERS: ATTEND Podiatrist Foot & Ankle Surgery | DX: E11.621 Type 2 diabetes mellitus with foot ulcer (principal); L97.418 Non-pressure chronic ulcer of right heel and midfoot with other specified severity; L97.528 Non-pressure chronic ulcer of other part of left foot with other specified severity; R60.0 Localized edema ==

== ENCOUNTER → 2023-12-23 | Outpatient (REF) | payer BC ==
[~2023-12-23] MED LIST changes: +MINERAL OIL/PETROLAT/GLYCERI 6OZ BTL ONE
== END ==
LOC: WCC 15:19
PROVIDERS: ATTEND Podiatrist Foot & Ankle Surgery
DX: E11.621 Type 2 diabetes mellitus with foot ulcer (principal); L97.418 Non-pressure chronic ulcer of right heel and midfoot with other specified severity; L97.528 Non-pressure chronic ulcer of other part of left foot with other specified severity; R60.0 Localized edema

== ENCOUNTER → 2024-01-03 | Outpatient (REF) | payer BC ==
[~2024-01-03] MED LIST changes: -MINERAL OIL/PETROLAT/GLYCERI 6OZ BTL ONE
== END ==
LOC: WCC 08:46
PROVIDERS: ATTEND Podiatrist Foot & Ankle Surgery
DX: E11.621 Type 2 diabetes mellitus with foot ulcer (principal); L97.418 Non-pressure chronic ulcer of right heel and midfoot with other specified severity; L97.528 Non-pressure chronic ulcer of other part of left foot with other specified severity; R60.0 Localized edema

== ENCOUNTER → 2024-01-06 | Outpatient (REF) | payer BC | LOC: WCC 14:22 | PROVIDERS: ATTEND Podiatrist Foot & Ankle Surgery | DX: E11.621 Type 2 diabetes mellitus with foot ulcer (principal); L97.418 Non-pressure chronic ulcer of right heel and midfoot with other specified severity; L97.528 Non-pressure chronic ulcer of other part of left foot with other specified severity; R60.0 Localized edema ==

== ENCOUNTER → 2024-01-09 | Outpatient (REF) | payer BC | LOC: WCC 10:00 | PROVIDERS: ATTEND Podiatrist Foot & Ankle Surgery | DX: E11.621 Type 2 diabetes mellitus with foot ulcer (principal); L97.528 Non-pressure chronic ulcer of other part of left foot with other specified severity; L97.418 Non-pressure chronic ulcer of right heel and midfoot with other specified severity; R60.0 Localized edema ==

== ENCOUNTER → 2024-01-11 | Outpatient (REF) | payer BC | LOC: WCC 08:30 | PROVIDERS: ATTEND Podiatrist Foot & Ankle Surgery | DX: E11.621 Type 2 diabetes mellitus with foot ulcer (principal); L97.418 Non-pressure chronic ulcer of right heel and midfoot with other specified severity; L97.528 Non-pressure chronic ulcer of other part of left foot with other specified severity; R60.0 Localized edema ==

== ENCOUNTER → 2024-01-16 | Outpatient (REF) | payer BC ==
[~2024-01-16] MED LIST changes: +MINERAL OIL/PETROLAT/GLYCERI 6OZ BTL ONE
== END ==
LOC: WCC 15:12
PROVIDERS: ATTEND Podiatrist Foot & Ankle Surgery
DX: E11.621 Type 2 diabetes mellitus with foot ulcer (principal); L97.418 Non-pressure chronic ulcer of right heel and midfoot with other specified severity; L97.528 Non-pressure chronic ulcer of other part of left foot with other specified severity; R60.0 Localized edema

== ENCOUNTER → 2024-01-18 | Outpatient (REF) | payer BC ==
[~2024-01-18] MED LIST changes: -MINERAL OIL/PETROLAT/GLYCERI 6OZ BTL ONE
== END ==
LOC: WCC 09:22
PROVIDERS: ATTEND Podiatrist Foot & Ankle Surgery
DX: E11.621 Type 2 diabetes mellitus with foot ulcer (principal); L97.418 Non-pressure chronic ulcer of right heel and midfoot with other specified severity; L97.528 Non-pressure chronic ulcer of other part of left foot with other specified severity; R60.0 Localized edema

== ENCOUNTER → 2024-01-20 | Outpatient (REF) | payer BC ==
[~2024-01-20] MED LIST changes: +TRYPSIN/BALSAM PERU/CASTOR OIL ONE
== END ==
LOC: WCC 12:27
PROVIDERS: ATTEND Podiatrist Foot & Ankle Surgery
DX: E11.621 Type 2 diabetes mellitus with foot ulcer (principal); L97.418 Non-pressure chronic ulcer of right heel and midfoot with other specified severity; L97.528 Non-pressure chronic ulcer of other part of left foot with other specified severity; R60.0 Localized edema

== ENCOUNTER → 2024-01-27 | Outpatient (REF) | payer BC ==
[~2024-01-27] MED LIST changes: -TRYPSIN/BALSAM PERU/CASTOR OIL ONE
== END ==
LOC: WCC 14:12
PROVIDERS: ATTEND Podiatrist Foot & Ankle Surgery
DX: E11.621 Type 2 diabetes mellitus with foot ulcer (principal); L97.418 Non-pressure chronic ulcer of right heel and midfoot with other specified severity; L97.528 Non-pressure chronic ulcer of other part of left foot with other specified severity; R60.0 Localized edema

== ENCOUNTER → 2024-02-01 | Outpatient (REF) | payer BC ==
[~2024-02-01] MED LIST changes: +MINERAL OIL/PETROLAT/GLYCERI 6OZ BTL ONE; +TRIAMCINOLONE ACET 0.1% CREAM 15 GM TUBE ONE
== END ==
LOC: WCC 08:55
PROVIDERS: ATTEND Podiatrist Foot & Ankle Surgery
DX: E11.621 Type 2 diabetes mellitus with foot ulcer (principal); L97.528 Non-pressure chronic ulcer of other part of left foot with other specified severity; L97.418 Non-pressure chronic ulcer of right heel and midfoot with other specified severity; R60.0 Localized edema

== ENCOUNTER → 2024-02-03 | Outpatient (REF) | payer BC ==
[~2024-02-03] MED LIST changes: -MINERAL OIL/PETROLAT/GLYCERI 6OZ BTL ONE; -TRIAMCINOLONE ACET 0.1% CREAM 15 GM TUBE ONE
== END ==
LOC: WCC 11:40
PROVIDERS: ATTEND Podiatrist Foot & Ankle Surgery
DX: E11.621 Type 2 diabetes mellitus with foot ulcer (principal); L97.418 Non-pressure chronic ulcer of right heel and midfoot with other specified severity; L97.528 Non-pressure chronic ulcer of other part of left foot with other specified severity; R60.0 Localized edema

== ENCOUNTER → 2024-02-06 | Outpatient (REF) | payer BC | LOC: WCC 11:35 | PROVIDERS: ATTEND Podiatrist Foot & Ankle Surgery | DX: E11.621 Type 2 diabetes mellitus with foot ulcer (principal); L97.528 Non-pressure chronic ulcer of other part of left foot with other specified severity; L97.418 Non-pressure chronic ulcer of right heel and midfoot with other specified severity; R60.0 Localized edema ==

== ENCOUNTER → 2024-02-08 | Outpatient (REF) | payer BC | LOC: WCC 08:49 | PROVIDERS: ATTEND Podiatrist Foot & Ankle Surgery | DX: E11.621 Type 2 diabetes mellitus with foot ulcer (principal); L97.418 Non-pressure chronic ulcer of right heel and midfoot with other specified severity; L97.528 Non-pressure chronic ulcer of other part of left foot with other specified severity; R60.0 Localized edema ==

== ENCOUNTER → 2024-02-10 | Outpatient (REF) | payer BC | LOC: WCC 08:00 | PROVIDERS: ATTEND Podiatrist Foot & Ankle Surgery | DX: E11.621 Type 2 diabetes mellitus with foot ulcer (principal); L97.418 Non-pressure chronic ulcer of right heel and midfoot with other specified severity; L97.528 Non-pressure chronic ulcer of other part of left foot with other specified severity; R60.0 Localized edema ==

== ENCOUNTER → 2024-02-15 | Outpatient (REF) | payer BC | LOC: WCC 10:32 | PROVIDERS: ATTEND Podiatrist Foot & Ankle Surgery | DX: E11.621 Type 2 diabetes mellitus with foot ulcer (principal); L97.418 Non-pressure chronic ulcer of right heel and midfoot with other specified severity; L97.528 Non-pressure chronic ulcer of other part of left foot with other specified severity; R60.0 Localized edema ==

== ENCOUNTER → 2024-02-20 | Outpatient (REF) | payer BC | LOC: WCC 10:17 | PROVIDERS: ATTEND Podiatrist Foot & Ankle Surgery | DX: E11.621 Type 2 diabetes mellitus with foot ulcer (principal); L97.418 Non-pressure chronic ulcer of right heel and midfoot with other specified severity; L97.528 Non-pressure chronic ulcer of other part of left foot with other specified severity; R60.0 Localized edema ==

== ENCOUNTER → 2024-02-27 | Outpatient (REF) | payer BC | LOC: WCC 08:39 | PROVIDERS: ATTEND Podiatrist Foot & Ankle Surgery | DX: E11.621 Type 2 diabetes mellitus with foot ulcer (principal); L97.418 Non-pressure chronic ulcer of right heel and midfoot with other specified severity; L97.528 Non-pressure chronic ulcer of other part of left foot with other specified severity ==

== ENCOUNTER → 2024-02-27 | Outpatient (REF) | payer BC | LOC: WCC 13:05 | PROVIDERS: ATTEND Podiatrist Foot & Ankle Surgery | DX: E11.621 Type 2 diabetes mellitus with foot ulcer (principal); L97.418 Non-pressure chronic ulcer of right heel and midfoot with other specified severity; L97.528 Non-pressure chronic ulcer of other part of left foot with other specified severity ==

== ENCOUNTER → 2024-03-02 | Outpatient (REF) | payer BC ==
[~2024-03-02] MED LIST changes: +MINERAL OIL/PETROLAT/GLYCERI 6OZ BTL ONE
== END ==
LOC: WCC 13:14
PROVIDERS: ATTEND Podiatrist Foot & Ankle Surgery
DX: E11.621 Type 2 diabetes mellitus with foot ulcer (principal); L97.418 Non-pressure chronic ulcer of right heel and midfoot with other specified severity; L97.528 Non-pressure chronic ulcer of other part of left foot with other specified severity

== ENCOUNTER → 2024-03-05 | Outpatient (REF) | payer BC ==
[~2024-03-05] MED LIST changes: -MINERAL OIL/PETROLAT/GLYCERI 6OZ BTL ONE
== END ==
LOC: WCC 13:11
PROVIDERS: ATTEND Podiatrist Foot & Ankle Surgery
DX: E11.621 Type 2 diabetes mellitus with foot ulcer (principal); L97.528 Non-pressure chronic ulcer of other part of left foot with other specified severity; R60.0 Localized edema

== ENCOUNTER → 2024-03-07 | Outpatient (REF) | payer BC | LOC: WCC 10:58 | PROVIDERS: ATTEND Podiatrist Foot & Ankle Surgery | DX: E11.621 Type 2 diabetes mellitus with foot ulcer (principal); L97.528 Non-pressure chronic ulcer of other part of left foot with other specified severity; L97.418 Non-pressure chronic ulcer of right heel and midfoot with other specified severity ==

== ENCOUNTER → 2024-03-12 | Outpatient (REF) | payer BC | LOC: WCC 13:06 | PROVIDERS: ATTEND Podiatrist Foot & Ankle Surgery | DX: E11.621 Type 2 diabetes mellitus with foot ulcer (principal); L97.418 Non-pressure chronic ulcer of right heel and midfoot with other specified severity; L97.528 Non-pressure chronic ulcer of other part of left foot with other specified severity ==

== ENCOUNTER → 2024-03-19 | Outpatient (REF) | payer BC | LOC: WCC 13:03 | PROVIDERS: ATTEND Podiatrist Foot & Ankle Surgery | DX: E11.621 Type 2 diabetes mellitus with foot ulcer (principal); L97.528 Non-pressure chronic ulcer of other part of left foot with other specified severity; L97.418 Non-pressure chronic ulcer of right heel and midfoot with other specified severity; S90.821A Blister (nonthermal), right foot, initial encounter; R60.0 Localized edema ==

== ENCOUNTER → 2024-03-23 | Outpatient (REF) | payer BC ==
[~2024-03-23] MED LIST changes: +MINERAL OIL/PETROLAT/GLYCERI 6OZ BTL ONE
== END ==
LOC: WCC 14:35
PROVIDERS: ATTEND Podiatrist Foot & Ankle Surgery
DX: E11.621 Type 2 diabetes mellitus with foot ulcer (principal); L97.418 Non-pressure chronic ulcer of right heel and midfoot with other specified severity; L97.528 Non-pressure chronic ulcer of other part of left foot with other specified severity; S90.821A Blister (nonthermal), right foot, initial encounter; R60.0 Localized edema

== ENCOUNTER → 2024-03-26 | Outpatient (REF) | payer BC ==
[~2024-03-26] MED LIST changes: -MINERAL OIL/PETROLAT/GLYCERI 6OZ BTL ONE
== END ==
LOC: WCC 03-23 05:00
PROVIDERS: ATTEND Podiatrist Foot & Ankle Surgery
DX: E11.621 Type 2 diabetes mellitus with foot ulcer (principal); L97.418 Non-pressure chronic ulcer of right heel and midfoot with other specified severity; L97.528 Non-pressure chronic ulcer of other part of left foot with other specified severity; R60.0 Localized edema

== ENCOUNTER → 2024-03-30 | Outpatient (REF) | payer BC | LOC: WCC 13:29 | PROVIDERS: ATTEND Podiatrist Foot & Ankle Surgery | DX: E11.621 Type 2 diabetes mellitus with foot ulcer (principal); L97.418 Non-pressure chronic ulcer of right heel and midfoot with other specified severity; L97.528 Non-pressure chronic ulcer of other part of left foot with other specified severity; R60.0 Localized edema ==

== ENCOUNTER → 2024-04-05 | Outpatient (REF) | payer BC | LOC: WCC 11:16 | PROVIDERS: ATTEND Podiatrist Foot & Ankle Surgery | DX: E11.621 Type 2 diabetes mellitus with foot ulcer (principal); L97.418 Non-pressure chronic ulcer of right heel and midfoot with other specified severity; L97.528 Non-pressure chronic ulcer of other part of left foot with other specified severity; R60.0 Localized edema ==

== ENCOUNTER → 2024-04-06 | Outpatient (REF) | payer BC | LOC: WCC 15:05 | PROVIDERS: ATTEND Nurse Practitioner Family | DX: E11.621 Type 2 diabetes mellitus with foot ulcer (principal); L97.418 Non-pressure chronic ulcer of right heel and midfoot with other specified severity; L97.528 Non-pressure chronic ulcer of other part of left foot with other specified severity; R60.0 Localized edema | CPT/HCPCS: 11042; 15275; 29581; 99212; Q4133 ==

== ENCOUNTER → 2024-04-10 | Outpatient (REF) | payer BC | LOC: WCC 09:15 | PROVIDERS: ATTEND Podiatrist Foot & Ankle Surgery | DX: E11.621 Type 2 diabetes mellitus with foot ulcer (principal); L97.418 Non-pressure chronic ulcer of right heel and midfoot with other specified severity; L97.528 Non-pressure chronic ulcer of other part of left foot with other specified severity; R60.0 Localized edema ==

== ENCOUNTER → 2024-04-13 | Outpatient (REF) | payer BC | LOC: WCC 12:23 | PROVIDERS: ATTEND Podiatrist Foot & Ankle Surgery | DX: E11.621 Type 2 diabetes mellitus with foot ulcer (principal); L97.418 Non-pressure chronic ulcer of right heel and midfoot with other specified severity; L97.528 Non-pressure chronic ulcer of other part of left foot with other specified severity; R60.0 Localized edema | CPT/HCPCS: 15275; 29581; 99213; Q4133 ==

== ENCOUNTER → 2024-04-17 | Outpatient (REF) | payer BC | LOC: WCC 13:48 | PROVIDERS: ATTEND Podiatrist Foot & Ankle Surgery | DX: E11.621 Type 2 diabetes mellitus with foot ulcer (principal); L97.418 Non-pressure chronic ulcer of right heel and midfoot with other specified severity; L97.528 Non-pressure chronic ulcer of other part of left foot with other specified severity; R60.0 Localized edema ==

== ENCOUNTER → 2024-04-20 | Outpatient (REF) | payer BC | LOC: WCC 13:18 | PROVIDERS: ATTEND Podiatrist Foot & Ankle Surgery | DX: E11.621 Type 2 diabetes mellitus with foot ulcer (principal); L97.528 Non-pressure chronic ulcer of other part of left foot with other specified severity ==

== ENCOUNTER → 2024-04-24 | Outpatient (REF) | payer BC | LOC: WCC 12:11 | PROVIDERS: ATTEND Podiatrist Foot & Ankle Surgery | DX: E11.621 Type 2 diabetes mellitus with foot ulcer (principal); L97.528 Non-pressure chronic ulcer of other part of left foot with other specified severity ==

== ENCOUNTER → 2024-05-03 | Outpatient (REF) | payer BC ==
[~2024-05-03] MED LIST changes: +MINERAL OIL/PETROLAT/GLYCERI 6OZ BTL ONE; +TRYPSIN/BALSAM PERU/CASTOR OIL ONE
== END ==
LOC: WCC 09:10
PROVIDERS: ATTEND Podiatrist Foot & Ankle Surgery
DX: E11.621 Type 2 diabetes mellitus with foot ulcer (principal); L97.528 Non-pressure chronic ulcer of other part of left foot with other specified severity

== ENCOUNTER → 2024-05-04 | Outpatient (REF) | payer BC | LOC: WCC 13:29 | PROVIDERS: ATTEND Podiatrist Foot & Ankle Surgery | DX: E11.621 Type 2 diabetes mellitus with foot ulcer (principal); L89.892 Pressure ulcer of other site, stage 2; L97.528 Non-pressure chronic ulcer of other part of left foot with other specified severity ==

== ENCOUNTER → 2024-05-08 | Outpatient (REF) | payer BC ==
[~2024-05-08] MED LIST changes: -TRYPSIN/BALSAM PERU/CASTOR OIL ONE
== END ==
LOC: WCC 09:21
PROVIDERS: ATTEND Podiatrist Foot & Ankle Surgery
DX: E11.621 Type 2 diabetes mellitus with foot ulcer (principal)

== ENCOUNTER → 2024-05-11 | Outpatient (REF) | payer BC | LOC: WCC 08:51 | PROVIDERS: ATTEND Podiatrist Foot & Ankle Surgery | DX: E11.621 Type 2 diabetes mellitus with foot ulcer (principal) ==

== ENCOUNTER → 2024-05-18 | Outpatient (REF) | payer BC ==
[~2024-05-18] MED LIST changes: +TRYPSIN/BALSAM PERU/CASTOR OIL ONE
== END ==
LOC: WCC 13:22
PROVIDERS: ATTEND Podiatrist Foot & Ankle Surgery
DX: E11.621 Type 2 diabetes mellitus with foot ulcer (principal); L89.892 Pressure ulcer of other site, stage 2; L97.418 Non-pressure chronic ulcer of right heel and midfoot with other specified severity; L97.528 Non-pressure chronic ulcer of other part of left foot with other specified severity; R60.0 Localized edema

== ENCOUNTER → 2024-05-22 | Outpatient (REF) | payer BC ==
[~2024-05-22] MED LIST changes: -TRYPSIN/BALSAM PERU/CASTOR OIL ONE
== END ==
LOC: WCC 13:00
PROVIDERS: ATTEND Podiatrist Foot & Ankle Surgery
DX: E11.621 Type 2 diabetes mellitus with foot ulcer (principal); L97.418 Non-pressure chronic ulcer of right heel and midfoot with other specified severity; L97.528 Non-pressure chronic ulcer of other part of left foot with other specified severity; R60.0 Localized edema

== ENCOUNTER → 2024-05-25 | Outpatient (REF) | payer BC ==
[~2024-05-25] MED LIST changes: -MINERAL OIL/PETROLAT/GLYCERI 6OZ BTL ONE
== END ==
LOC: WCC 08:40
PROVIDERS: ATTEND Podiatrist Foot & Ankle Surgery
DX: E11.621 Type 2 diabetes mellitus with foot ulcer (principal); L97.418 Non-pressure chronic ulcer of right heel and midfoot with other specified severity; L97.528 Non-pressure chronic ulcer of other part of left foot with other specified severity; R60.0 Localized edema

== ENCOUNTER → 2024-05-29 | Outpatient (REF) | payer BC | LOC: WCC 08:30 | PROVIDERS: ATTEND Podiatrist Foot & Ankle Surgery | DX: E11.621 Type 2 diabetes mellitus with foot ulcer (principal); L97.418 Non-pressure chronic ulcer of right heel and midfoot with other specified severity; L97.528 Non-pressure chronic ulcer of other part of left foot with other specified severity; R60.0 Localized edema ==

== ENCOUNTER → 2024-06-01 | Outpatient (REF) | payer BC ==
[~2024-06-01] MED LIST changes: +COLLAGENASE OINTMENT 30 GM TUBE ONE; +MINERAL OIL/PETROLAT/GLYCERI 6OZ BTL ONE
== END ==
LOC: WCC 11:20
PROVIDERS: ATTEND Podiatrist Foot & Ankle Surgery
DX: E11.621 Type 2 diabetes mellitus with foot ulcer (principal)

== ENCOUNTER → 2024-06-05 | Outpatient (REF) | payer BC ==
[~2024-06-05] MED LIST changes: -COLLAGENASE OINTMENT 30 GM TUBE ONE; -MINERAL OIL/PETROLAT/GLYCERI 6OZ BTL ONE
== END ==
LOC: WCC 08:39
PROVIDERS: ATTEND Podiatrist Foot & Ankle Surgery
DX: E11.621 Type 2 diabetes mellitus with foot ulcer (principal); L97.418 Non-pressure chronic ulcer of right heel and midfoot with other specified severity; R60.0 Localized edema

== ENCOUNTER → 2024-06-08 | Outpatient (REF) | payer BC | LOC: WCC 08:33 | PROVIDERS: ATTEND Podiatrist Foot & Ankle Surgery | DX: E11.621 Type 2 diabetes mellitus with foot ulcer (principal) ==

== ENCOUNTER → 2024-06-12 | Outpatient (REF) | payer BC | LOC: WCC 08:40 | PROVIDERS: ATTEND Podiatrist Foot & Ankle Surgery | DX: R60.0 Localized edema (principal) ==

== ENCOUNTER → 2024-06-15 | Outpatient (REF) | payer BC ==
[~2024-06-15] MED LIST changes: +MINERAL OIL/PETROLAT/GLYCERI 6OZ BTL ONE
== END ==
LOC: WCC 13:24
PROVIDERS: ATTEND Podiatrist Foot & Ankle Surgery
DX: E11.621 Type 2 diabetes mellitus with foot ulcer (principal); L97.418 Non-pressure chronic ulcer of right heel and midfoot with other specified severity; L97.528 Non-pressure chronic ulcer of other part of left foot with other specified severity

== ENCOUNTER → 2024-06-19 | Outpatient (REF) | payer BC ==
[~2024-06-19] MED LIST changes: -MINERAL OIL/PETROLAT/GLYCERI 6OZ BTL ONE
== END ==
LOC: WCC 08:26
PROVIDERS: ATTEND Podiatrist Foot & Ankle Surgery
DX: E11.621 Type 2 diabetes mellitus with foot ulcer (principal); L97.418 Non-pressure chronic ulcer of right heel and midfoot with other specified severity; L97.528 Non-pressure chronic ulcer of other part of left foot with other specified severity

== ENCOUNTER → 2024-06-22 | Outpatient (REF) | payer BC | LOC: WCC 08:10 | PROVIDERS: ATTEND Podiatrist Foot & Ankle Surgery | DX: E11.621 Type 2 diabetes mellitus with foot ulcer (principal); L97.418 Non-pressure chronic ulcer of right heel and midfoot with other specified severity; L97.528 Non-pressure chronic ulcer of other part of left foot with other specified severity; R60.0 Localized edema ==

== ENCOUNTER → 2024-06-26 | Outpatient (REF) | payer BC | LOC: WCC 08:12 | PROVIDERS: ATTEND Podiatrist Foot & Ankle Surgery | DX: E11.621 Type 2 diabetes mellitus with foot ulcer (principal); L97.418 Non-pressure chronic ulcer of right heel and midfoot with other specified severity; L97.528 Non-pressure chronic ulcer of other part of left foot with other specified severity; R60.0 Localized edema ==